=== PATIENT | male | born 1935 | race Caucasian/White ===

== ENCOUNTER → 2016-04-07 | Outpatient (CLI) | payer OTHER ==
[~2016-04-07] MED LIST: AMLO-114 PO; AMR2; ASPEC325 PO; LISI20TA PO; METO25TA56 PO; MULT-506 PO; SIMV20TA2 PO; janumet PO
[2016-04-07 16:49] LABS: BASO % 0.5 %; BASO ABS # 0.03 K/uL (0-0.2); COMPLETE YES; EOS % 2.9 %; HEMATOCRIT 44.2 % (42-52); IG% 0.2 %; LYMPH % 17.9 %; LYMPH ABS # 1.06 K/uL (1.2-3.4); MEAN CORPUSCULAR HEMOGLOBIN 28.7 pg (25-34); MEAN CORPUSCULAR HGB CONC 34.2 g/dl (32-36); MEAN PLATELET VOLUME 11.8 fL (7.4-10.4); MONO % 9.5 %; PLATELET COUNT 126 K/uL (130-400); RED BLOOD COUNT 5.26 M/uL (4.7-6.1); WHITE BLOOD COUNT 5.91 K/uL (4.8-10.8)
[2016-04-07 17:01] LABS: BLOOD UREA NITROGEN 22 mg/dl (7-18); BUN/CREATININE RATIO 17.9 (10-20); CALCIUM 8.8 mg/dl (8.5-10.1); CARBON DIOXIDE 28 mmol/L (21-32); CHLORIDE 106 mmol/L (98-107); GLUCOSE 194 mg/dl (70-99); SODIUM 141 mmol/L (136-145)
[2016-04-07 17:04] LABS: CHOLESTEROL 193 mg/dl (0-200); CHOLESTEROL/HDL RATIO 4.5; HDL CHOLESTEROL 43 mg/dl; LDL CHOLESTEROL CALCULATED 116 mg/dl; TRIGLYCERIDES 168 mg/dl (0-150); VERY LOW DENSITY LIPOPROT CALC 34 mg/dl
[2016-04-08 05:56] LABS: ESTIMATED AVERAGE GLUCOSE 217 mg/dl; HA1C FLAG Normal (Normal)
== END | disposition home or self-care (01) ==
LOC: C.LABBC 11:41
PROVIDERS: ATTEND Internal Medicine Geriatric Medicine
DX: I10 Essential (primary) hypertension (principal); M19.90 Unspecified osteoarthritis, unspecified site; K21.9 Gastro-esophageal reflux disease without esophagitis; E78.5 Hyperlipidemia, unspecified; E11.29 Type 2 diabetes mellitus with other diabetic kidney complication; N18.3 Chronic kidney disease, stage 3 (moderate); E11.65 Type 2 diabetes mellitus with hyperglycemia

== ENCOUNTER → 2016-07-03 | Outpatient (CLI) | payer OTHER ==
[2016-07-03 15:04] LABS: HEMATOCRIT 45.3 % (42-52); MEAN CELL VOLUME 85.6 fL (80-100); MEAN CORPUSCULAR HEMOGLOBIN 29.7 pg (25-34); MEAN CORPUSCULAR HGB CONC 34.7 g/dl (32-36); PLATELET COUNT 121 K/uL (130-400); RED BLOOD COUNT 5.29 M/uL (4.7-6.1); WHITE BLOOD COUNT 5.94 K/uL (4.8-10.8)
[2016-07-03 15:40] LABS: BLOOD UREA NITROGEN 23 mg/dl (7-18); BUN/CREATININE RATIO 17.5 (10-20); CARBON DIOXIDE 32 mmol/L (21-32); CHLORIDE 100 mmol/L (98-107); GLUCOSE 268 mg/dl (70-99); POTASSIUM 3.3 mmol/L (3.5-5.1); SODIUM 138 mmol/L (136-145)
[2016-07-04 06:04] LABS: ESTIMATED AVERAGE GLUCOSE 223 mg/dl; HA1C FLAG Normal (Normal)
== END | disposition home or self-care (01) ==
LOC: C.LABBC 10:37
PROVIDERS: ATTEND Internal Medicine Geriatric Medicine
DX: E11.9 Type 2 diabetes mellitus without complications (principal); I25.10 Atherosclerotic heart disease of native coronary artery without angina pectoris

== ENCOUNTER → 2016-09-04 | Outpatient (CLI) | payer OTHER ==
[2016-09-04 14:05] LABS: BLOOD UREA NITROGEN 24 mg/dl (7-18); BUN/CREATININE RATIO 18.2 (10-20); CALCIUM 8.9 mg/dl (8.5-10.1); CARBON DIOXIDE 31 mmol/L (21-32); CHLORIDE 101 mmol/L (98-107); GLUCOSE 323 mg/dl (70-99); POTASSIUM 3.6 mmol/L (3.5-5.1); SODIUM 140 mmol/L (136-145)
[2016-09-04 14:21] LABS: BETA-HYDROXYBUTYRATE 1.02 mg/dL (0.2-2.81)
== END | disposition home or self-care (01) ==
LOC: C.LABBC 09:39
PROVIDERS: ATTEND Internal Medicine Geriatric Medicine
DX: E11.29 Type 2 diabetes mellitus with other diabetic kidney complication (principal)

== ENCOUNTER → 2016-10-02 | Outpatient (CLI) | payer OTHER ==
[2016-10-02 11:36] LABS: ESTIMATED AVERAGE GLUCOSE 214 mg/dl; HA1C FLAG Normal (Normal)
--- NOTE | 2016-10-10 08:39 | CODING QUERY MEDICAL NECESSITY ---
CQSUPPORTING DIAGNOSIS NEEDED A supporting diagnosis is required for the test/procedure performed on this patient in order for us to be reimbursed by the patient's insurance. Please provide a supporting diagnosis for the following test/procedure listed below next to the test name along with your signature. *If there is no additional diagnosis for this patient that would support the following test/procedure please document that below next to the test/procedure. Test(s)/Procedure(s) that require a supporting diagnosis: PRIYA 10/02/16 GLYCATED HEMOGLOBIN TEST Provider Signature: Date: Thank you Harriett Little Health Information Management Once completed, please kindly fax back to [phone] For questions please call [phone]
== END | disposition home or self-care (01) ==
LOC: C.LABBC 09:22
PROVIDERS: ATTEND Nurse Practitioner Family
DX: E78.5 Hyperlipidemia, unspecified (principal); E11.65 Type 2 diabetes mellitus with hyperglycemia

== ENCOUNTER → 2016-12-02 | Outpatient (CLI) | payer OTHER ==
[2016-12-02 13:28] LABS: BLOOD UREA NITROGEN 26 mg/dl (7-18); CALCIUM 9.8 mg/dl (8.5-10.1); CARBON DIOXIDE 32 mmol/L (21-32); CHLORIDE 106 mmol/L (98-107); GLUCOSE 105 mg/dl (70-99); POTASSIUM 3.6 mmol/L (3.5-5.1); SODIUM 142 mmol/L (136-145)
[2016-12-02 13:32] LABS: CHOLESTEROL 108 mg/dl (0-200); CHOLESTEROL/HDL RATIO 2.5; HDL CHOLESTEROL 44 mg/dl; LDL CHOLESTEROL CALCULATED 42 mg/dl; TRIGLYCERIDES 110 mg/dl (0-150); VERY LOW DENSITY LIPOPROT CALC 22 mg/dl
== END | disposition home or self-care (01) ==
LOC: C.LABBC 07:28
PROVIDERS: ATTEND Nurse Practitioner Family
DX: E78.5 Hyperlipidemia, unspecified (principal)

== ENCOUNTER → 2017-01-02 | Outpatient (CLI) | payer OTHER | END | disposition home or self-care (01) | LOC: C.LABBC 10:32 | PROVIDERS: ATTEND Nurse Practitioner Family | DX: E11.65 Type 2 diabetes mellitus with hyperglycemia (principal) ==

== ENCOUNTER → 2017-05-01 | Outpatient (CLI) | payer OTHER ==
[2017-05-01 13:25] LABS: HEMOGLOBIN 15.2 g/dL (14.0-18.0); MEAN CELL VOLUME 86.6 fL (80-100); MEAN CORPUSCULAR HEMOGLOBIN 29.9 pg (25-34); MEAN CORPUSCULAR HGB CONC 34.5 g/dl (32-36); RED CELL DISTRIBUTION WIDTH SD 41.2 fL (36.4-46.3); WHITE BLOOD COUNT 6.41 K/uL (4.8-10.8)
[2017-05-01 13:49] LABS: BLOOD UREA NITROGEN 21 mg/dl (7-18); CARBON DIOXIDE 32 mmol/L (21-32); CREATININE 1.28 mg/dl (0.60-1.40); GLUCOSE 203 mg/dl (70-99); POTASSIUM 3.4 mmol/L (3.5-5.1); SODIUM 137 mmol/L (136-145)
[2017-05-01 13:55] LABS: BASO % 0.3 %; BASO ABS # 0.02 K/uL (0-0.2); EOS % 2.7 %; EOS ABS # 0.17 K/uL (0-0.5); IG# 0.02 K/uL (0.00-0.02); LYMPH % 19.8 %; LYMPH ABS # 1.27 K/uL (1.2-3.4); MONO % 8.4 %; MONO ABS # 0.54 K/uL (0.11-0.59); NEUT % 68.5 %; NEUT ABS # 4.39 K/uL (1.4-6.5); PLATELET COUNT 106 K/uL (130-400)
== END | disposition home or self-care (01) ==
LOC: C.LAB1850 11:45
PROVIDERS: ATTEND Internal Medicine Endocrinology, Diabetes & Metabolism
DX: E11.9 Type 2 diabetes mellitus without complications (principal); E03.9 Hypothyroidism, unspecified; E55.9 Vitamin D deficiency, unspecified; I10 Essential (primary) hypertension; N18.3 Chronic kidney disease, stage 3 (moderate)

== ENCOUNTER 2022-03-25 19:33 | Inpatient (IN) ==
[2022-03-25 21:09] LABS: Hematocrit (blood only) 43.3 % (40.1-51.0); Hemoglobin 14.6 g/dl (14.0-18.0); White Blood Count 5.05 K/ul (4.8-10.8)
[2022-03-25 21:10] LABS: Mean Corpuscular Hemoglobin 29.8 pg (25.0-34.0); Mean Corpuscular Hgb Conc 33.7 g/dL (32.0-36.0); Mean Corpuscular Volume 88.4 fL (80.0-100.0); RDW Coefficient of Variation 13.2 % (11.5-14.5); RDW Standard Deviation 43.1 fL (36.4-46.3)
--- NOTE | 2022-03-25 21:12 | XRay Report ---
XR chest 1V portable CLINICAL HISTORY: cough, covid + TECHNIQUE: Single frontal radiograph of the chest was obtained. Comparison: Comparison is made to chest radiograph 10/30/2019 FINDINGS: Median sternotomy wires are unchanged. The cardiomediastinal silhouette is normal. Lungs are underinf lated but clear. No evidence of pleural effusion or pneumothorax. IMPRESSION: No acute chest disease. ACT 112: Negative or not required by law. Electronically signed by: Figueroa Swenson M.D. 03/25/2022 9:11 PM
[2022-03-25] MEDS: SODIUM CHLORIDE 0.9% 1000ML 1,000 ML IV SCH (21:15)
--- NOTE | 2022-03-25 21:23 | Emergency Department Note ---
History of Present Illness General Chief complaint: Weakness Stated complaint: COVID +, LIGHT HEADED, LABORED BREATHING, FALLING Time Seen by Provider: 03/25/22 20:18 Source: patient Mode of arrival: ambulatory Limitations: no limitations History of Present Illness Provider complaint: sob, fatigue, lightheaded This is an 86-year-old male presents emergency department with family at bedside due to concern for lightheadedness, shortness of breath, and positive home COVID test. Patient states he first began not feeling well evening with increased fatigue and lightheadedness. He states he had decreased appetite over the course of the last 3 days, although no overt nausea or vomiting. He states he has been more tired, and began to notice a slight cough and increased dyspnea with exertion. He denies any overt headaches, chest pain, abdominal pain. Family states they came to check on him today due to concern after a phone conversation and brought over the COVID test. The COVID test was positive at home. They also state patient also had 2 subsequent falls today. Patient states the first time he felt weak in the bathroom and fell forward but did not strike anything on the way down, he denies head trauma or LOC. Daughter states the second time he became weak and off balance while trying to put his coat on in preparation for coming here and the daughter caught him and sat him down. Patient does live with his at home although daughter states has a difficult time caring for him. Home Medications Medication Instructions Recorded Confirmed Type aspirin 325 mg tablet 325 mg PO DAILY 10/24/18 03/25/22 History lancets (Microlet Lancet) #50 ea 10/28/18 02/16/22 History Contour Next Test Strips (blood #300 ea 12/08/20 02/16/22 Rx sugar diagnostic) multivitamin (Multiple Vitamins 1 tab PO DAILY 05/24/21 03/25/22 History tablet) nitroglycerin 0.4 mg sublingual 0.4 mg sublingual Q5M PRN dyspnea 05/24/21 03/25/22 Rx tablet (Nitrostat) #25 tabs BD Ultra-Fine Danielle Pen Needle 32 #400 ea 09/26/21 02/16/22 Rx gauge x 5/32" (pen needle, diabetic) amlodipine 10 mg tablet 10 mg PO QAM #90 tabs 11/10/21 03/25/22 Rx lisinopril 20 2 tab PO QAM #180 tabs 11/10/21 03/25/22 Rx mg-hydrochlorothiazide 12.5 mg tablet potassium chloride 10 mEq 10 meq PO QAM #90 caps 11/14/21 03/25/22 Rx capsule,extended release insulin glargine 100 unit/mL (3 35 unit (0.35 mL) subcut QPM #45 mL 11/28/21 03/25/22 Rx mL) subcutaneous pen (Basaglar KwikPen U-100 Insulin) atorvastatin 40 mg tablet 40 mg PO QAM #90 tabs 12/19/21 03/25/22 Rx isosorbide mononitrate 30 mg 30 mg PO DAILY #90 tabs 03/21/22 03/25/22 Rx tablet,extended release 24 hr insulin aspart U-100 100 unit/mL 52 unit subcut DAILY 03/25/22 03/25/22 History (3 mL) subcutaneous pen (Novolog Flexpen U-100 Insulin aspart) Allergies Allergy/AdvReac Type Severity Reaction Status Date / Time No Known Drug Allergies Allergy NKDA Verified 03/25/22 23:40 Past Med/Surg History Medical History Anemia Basal cell carcinoma HX Bradycardia DENIES Calcaneal spur Cataracts, bilateral Chronic kidney disease AGE APPROPRIATE KIDNEY DISEASE PER DAUGHTER Chronic sinusitis Coronary artery disease . Followed by cardiology. Diabetes Diabetic nephropathy DENIES Dysphagia DENIES History of COVID-19 [place] ([place] of hearing) Hyperlipidemia Hypertension Seborrheic keratosis Snores REFUSED SLEEP STUDY Thrombocytopenia Thyroglossal duct cyst Surgical History H/O colonoscopy No further screening recommended, 03/2014 History of carpal tunnel release History of left cataract surgery History of thyroid surgery CYST REMOVED, NON CANCEROUS 50+ YR AGO Hx of CABG OPEN HEART SURGERY, BLOCKAGES 2006 AT [place] Hx of total knee arthroplasty Left, 2002 Family History Unknown No problems noted. 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 Required: No Beliefs That Will Affect Care: None marital status: Current Living Situation: Spouse current occupational status: retired 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 How many Children do You have: 3 Feels Safe at Home: Yes Childhood Exposure to Second-Hand Smoke: No caffeine: Yes Dental Care, Regularly: No Physical Activity Frequency: 1-2 Times per Week Seatbelt Use: always Sunscreen Use: No Assistive Devices: Denture - Upper and Denture - Lower Review of Systems A total of 10 systems reviewed and were otherwise negative All systems reviewed & are unremarkable except as noted in HPI & below Physical Exam Vital Signs Vital Signs - 24 hr 03/25/22 19:40 03/25/22 20:48 03/25/22 20:57 Temperature 37.3 C Temperature Source Temporal Artery Scan Pulse Rate 100 H 87 Pulse Rate from SpO2 Sensor 87 Respiratory Rate 18 25 H Respiratory Effort / Characteristics Non-Labored Spontaneous Respiratory Depth Normal Blood Pressure 126/82 Blood Pressure Mean 96 Blood Pressure Position Sitting Pulse Oximetry 93 93 92 Oxygen Delivery Method Room Air Room Air Room Air Oxygen Flow Rate 0 Sepsis Recent Fever Within 48 Hours No Sepsis New/Unexplained Change in Mental Status No Sepsis Action Taken by Nursing No Action Required 03/25/22 21:00 03/25/22 21:00 03/25/22 21:30 Temperature Temperature Source Pulse Rate 88 Pulse Rate from SpO2 Sensor 88 Respiratory Rate 35 H Respiratory Effort / Characteristics Respiratory Depth Blood Pressure 142/74 H 134/73 Blood Pressure Mean 96 93 Blood Pressure Position Pulse Oximetry 91 Oxygen Delivery Method Room Air Oxygen Flow Rate Sepsis Recent Fever Within 48 Hours Sepsis New/Unexplained Change in Mental Status Sepsis Action Taken by Nursing 03/25/22 21:30 Temperature Temperature Source Pulse Rate 85 Pulse Rate from SpO2 Sensor 85 Respiratory Rate 36 H Respiratory Effort / Characteristics Respiratory Depth Blood Pressure Blood Pressure Mean Blood Pressure Position Pulse Oximetry 94 Oxygen Delivery Method Room Air Oxygen Flow Rate Sepsis Recent Fever Within 48 Hours Sepsis New/Unexplained Change in Mental Status Sepsis Action Taken by Nursing GENERAL: alert, unwell appearing, well nourished, no distress, non-toxic EYE EXAM: normal conjunctiva, PERRL and EOM's grossly intact OROPHARYNX: no exudate, no erythema, lips, buccal mucosa, and tongue normal and mucous membranes are moist NECK: supple, no nuchal rigidity, no adenopathy, non-tender LUNGS: Clear to auscultation. Normal chest wall mechanics, no w/r/r HEART: no murmurs, S1 normal and S2 normal ABDOMEN: abdomen soft, non-tender, normo-active bowel sounds, no masses, no rebound or guarding. BACK: Back is symmetrical on inspection and there is no deformity, no midline tenderness, no CVA tenderness. SKIN: no rashes and no bruising UPPER EXTREMITIES: upper extremities are grossly normal. FROM, nml pulses b/l. LOWER EXTREMITIES: No pitting edema. FROM, nml pulses b/l. NEURO EXAM: Normal sensorium, cranial nerves II-XII grossly intact, normal speech, no gross weakness of arms, no gross weakness of legs. Gross sensation intact. Course Administered Medications Sodium Chloride (Nss 1000ml) 1,000 mls @ 125 mls/hr IV .Q8H ALEXIA Stop: 04/24/22 20:44 Last Admin: 03/25/22 21:15 Dose: 125 mls/hr Documented By: [id number] Discontinued Medications Albuterol (Albut/Ipratrop 3mg/0.5mg Neb 3 Ml Vial) 3 ml NEB NOW STA; Protocol Stop: 03/25/22 22:02 Last Admin: 03/25/22 22:23 Dose: 3 ml Documented By: [id number] Dexamethasone Sodium Phosphate (DexamethasonePf 10 Mg/Ml Vial) 6 mg IV NOW ONE Stop: 03/25/22 22:54 Last Admin: 03/25/22 23:13 Dose: 6 mg Documented By: SW Potassium Chloride (Potassium Chloride Crtab 20 Meq Tabcr) 40 meq PO NOW STA Stop: 03/25/22 21:44 Last Admin: 03/25/22 22:22 Dose: 40 meq Documented By: [id number] Medical Decision Making Differential Diagnosis Differential Diagnosis includes but is not limited to dehydration, stroke, anem ia, hypoglycemia, hyponatremia, hypernatremia, urinary tract infection, pneumonia, bronchitis, sepsis, gastroenteritis, additional abdominal pathology, metabolic abnormalities and infections. Medical Records Attestation: I reviewed the patient's medical records. Home Medications Current Medication List: was personally reviewed by me Laboratory Data Attestation: I reviewed the patient's lab results. Result diagrams: 03/25/22 20:45 03/25/22 20:45 Lab Results 03/25/22 03/25/22 03/25/22 Range/Units 20:45 20:45 20:45 WBC 5.05 (4.8-10.8) K/ul RBC 4.90 (4.63-6.08) M/uL Hgb 14.6 (14.0-18.0) g/dl Hct 43.3 (40.1-51.0) % MCV 88.4 (80.0-100.0) fL MCH 29.8 (25.0-34.0) pg MCHC 33.7 (32.0-36.0) g/dL RDW Std Deviation 43.1 (36.4-46.3) fL RDW Coeff of Kirsten 13.2 (11.5-14.5) % Plt Count 49 L (130-400) K/uL MPV 11.6 (9.4-12.4) fL Immature Gran % (Auto) 0.6 % Neut % (Auto) 77.6 % Lymph % (Auto) 7.3 % [place] % (Auto) 14.3 % Eos % (Auto) 0.0 % Baso % (Auto) 0.2 % Neut # (Auto) 3.92 (1.4-6.5) K/uL Lymph # (Auto) 0.37 L (1.2-3.4) K/uL [place] # (Auto) 0.72 (0.24-0.82) K/uL Eos # (Auto) 0.00 (0-0.50) K/uL Baso # (Auto) 0.01 (0-0.2) K/uL Immature Gran # (Auto) 0.03 H (0.00-0.02) K/uL Platelet Estimate Decreased L (Normal) Sodium 137 (136-145) mmol/L Potassium 3.4 L (3.5-5.1) mmol/L Chloride 100 (98-107) mmol/L Carbon Dioxide 29 (21-32) mmol/L Anion Gap 8 (3-11) BUN 27 H (6-23) mg/dl Creatinine 1.47 H (0.6-1.4) mg/dl Est Cr Clr Drug Dosing 37.4 ml/min Est GFR ( Amer) 50.1 ml/min Est GFR (Non-Af Amer) 43.2 ml/min BUN/Creatinine Ratio 18.4 (10-20) Glucose 165 H (70-99(Fasting)) mg/dl Calcium 9.6 (8.5-10.1) mg/dl Magnesium 1.8 (1.7-2.4) mg/dl Total Bilirubin 4.4 H (0.2-1.0) mg/dl AST 17 (13-39) U/L ALT 15 (7-52) U/L Alkaline Phosphatase 51 (34-104) U/L Troponin I High Sens 29.4 H (0-20) pg/ml Total Protein 6.8 (6.0-8.3) gm/dl Albumin 4.3 (3.4-5.0) gm/dl Globulin 2.5 (2.5-4.0) gm/dl Albumin/Globulin Ratio 1.7 (0.9-2) Lipase 32 (11-82) U/L Procalcitonin 0.07 (0-0.5) ng/ml SARS-CoV-2 (PCR) (Negative) Influenza Type A (PCR) (Neg) Influenza Type B (PCR) (Neg) RSV (RT-PCR) (Neg) 03/25/22 Range/Units 21:12 WBC (4.8-10.8) K/ul RBC (4.63-6.08) M/uL Hgb (14.0-18.0) g/dl Hct (40.1-51.0) % MCV (80.0-100.0) fL MCH (25.0-34.0) pg MCHC (32.0-36.0) g/dL RDW Std Deviation (36.4-46.3) fL RDW Coeff of Kirsten (11.5-14.5) % Plt Count (130-400) K/uL MPV (9.4-12.4) fL Immature Gran % (Auto) % Neut % (Auto) % Lymph % (Auto) % [place] % (Auto) % Eos % (Auto) % Baso % (Auto) % Neut # (Auto) (1.4-6.5) K/uL Lymph # (Auto) (1.2-3.4) K/uL [place] # (Auto) (0.24-0.82) K/uL Eos # (Auto) (0-0.50) K/uL Baso # (Auto) (0-0.2) K/uL Immature Gran # (Auto) (0.00-0.02) K/uL Platelet Estimate (Normal) Sodium (136-145) mmol/L Potassium (3.5-5.1) mmol/L Chloride (98-107) mmol/L Carbon Dioxide (21-32) mmol/L Anion Gap (3-11) BUN (6-23) mg/dl Creatinine (0.6-1.4) mg/dl Est Cr Clr Drug Dosing ml/min Est GFR ( Amer) ml/min Est GFR (Non-Af Amer) ml/min BUN/Creatinine Ratio (10-20) Glucose (70-99(Fasting)) mg/dl Calcium (8.5-10.1) mg/dl Magnesium (1.7-2.4) mg/dl Total Bilirubin (0.2-1.0) mg/dl AST (13-39) U/L ALT (7-52) U/L Alkaline Phosphatase (34-104) U/L Troponin I High Sens (0-20) pg/ml Total Protein (6.0-8.3) gm/dl Albumin (3.4-5.0) gm/dl Globulin (2.5-4.0) gm/dl Albumin/Globulin Ratio (0.9-2) Lipase (11-82) U/L Procalcitonin (0-0.5) ng/ml SARS-CoV-2 (PCR) POSITIVE A* (Negative) Influenza Type A (PCR) Negative (Neg) Influenza Type B (PCR) Negative (Neg) RSV (RT-PCR) Negative (Neg) Imaging Data Radiologist's Impression: Chest X-Ray 03/25/22 20:32 XR chest 1V portable CLINICAL HISTORY: cough, covid + TECHNIQUE: Single frontal radiograph of the chest was obtained. Comparison: Comparison is made to chest radiograph 10/30/2019 FINDINGS: Median sternotomy wires are unchanged. The cardiomediastinal silhouette is normal. Lungs are underinflated but clear. No evidence of pleural effusion or pneumothorax. IMPRESSION: No acute chest disease. ACT 112: Negative or not required by law. Electronically signed by: Figueroa Swenson M.D. 03/25/2022 9:11 PM ECG Data Attestation: I personally reviewed and interpreted this ECG as follows: Indication: + SOB/dyspnea and + weakness Rate (beats per minute): 86 Rhythm: + normal sinus ECG Intervals/blocks: + Normal QRS and + Normal QT ECG [place]: + Left axis deviation ECG ST segments: + Nonspecific ST abnormalities MDM Narrative An order was placed for continuous cardiac monitoring. The monitor shows a rate of _80_ with _normal sinus_ rhythm. This is an 86-year-old male brought by daughter due to concern for weakness and positive home COVID test. Patient with 2 falls earlier this evening. Patient denies any trauma or injury from these. Patient with worsening symptoms over the last 48 hours including weakness, fatigue, fevers, increased cough and shortness of breath, decreased oral intake. Labs drawn and sent, patient started on IV fluid rehydration, chest x-ray performed. Patient also given DuoNeb additionally as he is a prior smoker and did complain of feeling shortness of breath particular with exertion. Patient's EKG reassuring. Patient was positive for COVID here, however chest x-ray did not show any significant changes. Patient was not hypoxic and had no increased work of breathing. Patient with mild hypokalemia. Patient also noted to have thrombocytopenia which is likely reactive from the COVID infection. Patient also found to have hyperbilirubinemia although on review of EMR has had this previously. Troponin mildly elevated although I do not suspect primary cardiac pathology or ACS. Due to concern for acute infection and symptoms, concern for weakness given falls today, as well as mild lab abnormalities noted, we discussed additional inpatient monitoring and evaluation. Patient and daughter verbalized understanding and were in agreement with the plan. I do not suspect additional occult traumatic injury secondary to the falls which sound low risk based on the patient and daughter's description. There is no evidence of trauma on physical exam. Patient otherwise hemodynamically stable on monitor in the emergency room. Impression & Plan Acute dyspnea, Hypokalemia, Generalized weakness, COVID-19, Hyperbilirubinemia, Elevated troponin Discharge Plan Visit Data Chief Complaint: Weakness Stated Complaint: COVID +, LIGHT HEADED, LABORED BREATHING, FALLING ED Provider: Tammy Meyer Discharge Problem: Acute dyspnea, Hypokalemia, Generalized weakness, COVID-19, Hyperbilirubinemia, Elevated troponin Patient Disposition: Admitted As Inpatient Condition: Fair Discharge Instructions Interventions: ED Discharge Assessment Last Done: 03/26/22 00:16
[2022-03-25 21:25] LABS: Albumin Globulin Ratio 1.7 (0.9-2); Albumin Level 4.3 gm/dl (3.4-5.0); BUN Creatinine Ratio 18.4 (10-20); Bilirubin,Total 4.4 mg/dl (0.2-1.0); Calcium 9.6 mg/dl (8.5-10.1); Creatinine Clr Calc Pharmacy 37.4 ml/min; Est GFR (African American) 50.1 ml/min; Est GFR (Non-African American) 43.2 ml/min; Globulin 2.5 gm/dl (2.5-4.0); Magnesium 1.8 mg/dl (1.7-2.4); Potassium 3.4 mmol/L (3.5-5.1); Total Protein 6.8 gm/dl (6.0-8.3)
[2022-03-25 21:30] LABS: Troponin I High Sensitivity 29.4 pg/ml (0-20)
[2022-03-25] MEDS ORDERED: POTASSIUM CHLORIDE CRTAB 20 MEQ TABCR PO STA (21:43)
[2022-03-25] MEDS ORDERED: ALBUT/IPRATROP 3MG/0.5MG NEB 3 ML VIAL NEB STA (22:01)
[2022-03-25 22:26] LABS: Influenza A virus by PCR Negative (Neg); Influenza B virus by PCR Negative (Neg); RSV by PCR Negative (Neg)
[2022-03-25 22:30] LABS: SARS CoV2 RNA(COVID-19) Ceph POSITIVE (Negative)
[2022-03-25 22:44] LABS: Basophils # (auto) 0.01 K/uL (0-0.2); Basophils % (auto) 0.2 %; Immature Granulocytes # (auto) 0.03 K/uL (0.00-0.02); Immature Granulocytes % (auto) 0.6 %; Lymphocytes # (auto) 0.37 K/uL (1.2-3.4); Lymphocytes % (auto) 7.3 %; Mean Platelet Volume 11.6 fL (9.4-12.4); Monocytes # (auto) 0.72 K/uL (0.24-0.82); Monocytes % (auto) 14.3 %; Neutrophils # (auto) 3.92 K/uL (1.4-6.5); Neutrophils % (auto) 77.6 %; Platelet Count 49 K/uL (130-400); Platelet Estimate Decreased (Normal)
[2022-03-25] MEDS ORDERED: dexAMETHasone**PF** 10 MG/ML VIAL IV ONE (22:53)
--- NOTE | 2022-03-25 23:19 | History & Physical Report ---
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 daily Albuterol HFA 2 puffs 4 times daily, and every 2 hours as needed DuoNebs every 2 hours as needed Will attempt to hydrate patient to improve creatinine clearance to be able to get remdesivir in a.m. tomorrow if still with significant symptoms Elevated troponin/CAD/hypertension/history of CABG- Troponin 29.4 upon admission The patient will be admitted to telemetry for serial cardiac enzymes, serial EKG's, cardiac rhythm monitoring and a 2-D echocardiogram with Dopplers. Optimize potassium and magnesium continue aspirin 325 mg daily, amlodipine 10 mg daily, isosorbide mononitrate extended release 24-hour 30 mg daily and nitroglycerin sublingual as needed Acute kidney injury on CKD stage III/hypokalemia/hypomagnesemia- Hold lisinopril/HCTZ this evening Given Klor-Con 40 mEq p.o. by the ED Give magnesium sulfate 1 g IV now Recheck laboratories in a.m. Diabetes mellitus- Patient has had decreased oral intake over the past several days Decrease glargine from 35 to 20 units subcu q. evening Hold aspartate 55 units daily Placed on Accu-Cheks before meals and at bedtime with NovoLog coverage per scale If blood sugars increase while on steroids, resume full dosing of insulin Hyperlipidemia- Continue atorvastatin 40 mg daily History of Present Illness Chief Complaint: The patient presents to the emergency department due to family concerns regarding lightheadedness, dizziness, shortness of breath, worsening fatigue and a positive home COVID test prior to arrival. Primary Care Provider: Javier Anguiano DO The patient is an 86-year-old male with a past medical history including hyperbilirubinemia, status post CABG, hypertension, diabetes mellitus type 2, ITP, low back pain, hyperlipidemia, and CAD. He was noted by family to have the above symptoms. Work-up in the emergency department include the following abnormal laboratories: Magnesium 1.8, potassium 3.4, troponin 29.4, creatinine 1.47 and COVID-19 positive. Pulse ox on room air was noted to be 90-91% at baseline improving significantly after nebulizer treatment. Allergies Allergy/AdvReac Type Severity Reaction Status Date / Time No Known Drug Allergies Allergy NKDA Verified 03/25/22 23:40 Home Medications Medication Instructions Recorded Confirmed Type aspirin 325 mg tablet 325 mg PO DAILY 10/24/18 03/21/22 History lancets (Microlet Lancet) #50 ea 10/28/18 02/16/22 History Contour Next Test Strips (blood #300 ea 12/08/20 02/16/22 Rx sugar diagnostic) multivitamin (Multiple Vitamins 1 tab PO DAILY 05/24/21 03/21/22 History tablet) nitroglycerin 0.4 mg sublingual 0.4 mg sublingual Q5M PRN dyspnea 05/24/21 03/21/22 Rx tablet (Nitrostat) #25 tabs BD Ultra-Fine Danielle Pen Needle 32 #400 ea 09/26/21 02/16/22 Rx gauge x 5/32" (pen needle, diabetic) amlodipine 10 mg tablet 10 mg PO QAM #90 tabs 11/10/21 03/21/22 Rx lisinopril 20 2 tab PO QAM #180 tabs 11/10/21 03/21/22 Rx mg-hydrochlorothiazide 12.5 mg tablet potassium chloride 10 mEq 10 meq PO QAM #90 caps 11/14/21 03/21/22 Rx capsule,extended release insulin glargine 100 unit/mL (3 35 unit (0.35 mL) subcut QPM #45 mL 11/28/21 03/21/22 Rx mL) subcutaneous pen (Basaglar KwikPen U-100 Insulin) atorvastatin 40 mg tablet 40 mg PO QAM #90 tabs 12/19/21 03/21/22 Rx isosorbide mononitrate 30 mg 30 mg PO DAILY #90 tabs 03/21/22 03/21/22 Rx tablet,extended release 24 hr insulin aspart U-100 100 unit/mL 52 unit subcut DAILY 03/25/22 03/25/22 History (3 mL) subcutaneous pen (Novolog Flexpen U-100 Insulin aspart) Past Med/Surg History Medical History (Updated 03/26/22 @ 02:23 by Danish Lucas MD) Anemia Basal cell carcinoma HX Bradycardia DENIES CAD (coronary artery disease), [place]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 Followed by cardiology. Diabetes Diabetic nephropathy DENIES Dysphagia DENIES History of COVID-19 [place] O[place]ILLES (hard of hearing) Hyperlipidemia Hypertension Seborrheic keratosis Snores REFUSED SLEEP STUDY Thrombocytopenia Thyroglossal duct cyst Surgical History H/O colonoscopy No further screening recommended, 03/2014 History of carpal tunnel release History of left cataract surgery History of thyroid surgery CYST REMOVED, NON CANCEROUS 50+ YR AGO Hx of CABG OPEN HEART SURGERY, BLOCKAGES 2006 AT [place] Hx of total knee arthroplasty Left, 2002 Family History Unknown No problems noted. Father Prostate cancer Alcohol abuse Mother Hypertension Stroke Brother Atrial fibrillation Heart disease Grandmother Diabetes Stroke Uncle Diabetes Denies family history of Ovarian cancer Myocardial infarction Breast cancer Colorectal cancer Social History Smoking Status: Former smoker Second Hand Exposure: No; Do You Dip or Chew Tobacco: No; Tobacco Cessation Education Requested by Patient: No Hx Alcohol Use: No Hx Substance Use: No Preferred Language: Romansh Communication Ability: Effective Visual Impairment: Limited Hearing Ability: Hard of Hearing Ccna Required: No Beliefs That Will Affect Care: None marital status: Current Living Situation: [place] 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 How many Children do You have: 3 Feels Safe at Home: Yes Safety Concerns: Feels Safe At This Time Childhood Exposure to Second-Hand Smoke: No caffeine: Yes Dental Care, Regularly: No Physical Activity Frequency: 1-2 Times per Week Seatbelt Use: always Sunscreen Use: No Assistive Devices: Walker Review of Systems Review of Systems: The patient denies chest pain, palpitations, lower extremity swelling, sore throat, fevers, chills, sweats, nausea, vomiting, diarrhea , constipation, abdominal pain, pelvic pain, blood in urine or stool, dysuria, urinary frequency or urgency, headache, memory loss, loss of consciousness, rash, abnormal bruising or bleeding, focal weakness, numbness or tingling in arms or legs, generalized arthralgias or myalgias, back or neck pain, or night sweats. The review of systems is otherwise negative other than for that already noted above, and at least 10 systems have been reviewed. Physical Exam Physical Exam: The patient is awake, alert and oriented 3, well developed and well nourished, normocephalic and atraumatic, lying in bed and in no acute distress. HEENT--PERRL, EOMI, mucous membranes and oropharynx dry. Neck--supple. No JVD. No bruits. Thyroid normal, trachea midline, no adenopathy. Heart--normal S1 and S2. No murmurs, rubs or gallops. Lungs--few coarse breath sounds bilaterally with scattered wheezes. No respiratory distress, no accessory muscle use. Abdomen--normal bowel sounds and soft. Nontender. Nondistended, no hernias or masses, no organomegaly. Extremities--no cyanosis or clubbing. No edema. Dermatologic--normal skin turgor, normal color, no abnormal lymph nodes, no rash. Neurologic--cranial nerves II through XII grossly intact. Rheumatologic--normal range of motion. Psychiatric--normal affect. Results & Data Results & Data ([facility]) Vital Signs (Past 12 Hours) Vital Signs Temp Pulse Resp BP Pulse Ox O2 Del Method O2 Flow Rate 03/25/22 21:30 85 36 H 94 Room Air 03/25/22 21:30 134/73 03/25/22 21:00 88 35 H 91 Room Air 03/25/22 21:00 142/74 H 03/25/22 20:57 87 25 H 92 Room Air 03/25/22 20:48 93 Room Air 0 03/25/22 19:40 37.3 C 100 H 18 126/82 93 Room Air Laboratory Results Laboratory Results WBC 5.05 K/ul (4.8-10.8) 03/25/22 20:45 RBC 4.90 M/uL (4.63-6.08) 03/25/22 20:45 Hgb 14.6 g/dl (14.0-18.0) 03/25/22 20:45 Hct 43.3 % (40.1-51.0) 03/25/22 20:45 MCV 88.4 fL (80.0-100.0) 03/25/22 20:45 MCH 29.8 pg (25.0-34.0) 03/25/22 20:45 MCHC 33.7 g/dL (32.0-36.0) 03/25/22 20:45 RDW Std Deviation 43.1 fL (36.4-46.3) 03/25/22 20:45 RDW Coeff of Kirsten 13.2 % (11.5-14.5) 03/25/22 20:45 Plt Count 49 K/uL (130-400) L 03/25/22 20:45 MPV 11.6 fL (9.4-12.4) 03/25/22 20:45 Immature Gran % (Auto) 0.6 % 03/25/22 20:45 Neut % (Auto) 77.6 % 03/25/22 20:45 Lymph % (Auto) 7.3 % 03/25/22 20:45 [place] % (Auto) 14.3 % 03/25/22 20:45 Eos % (Auto) 0.0 % 03/25/22 20:45 Baso % (Auto) 0.2 % 03/25/22 20:45 Neut # (Auto) 3.92 K/uL (1.4-6.5) 03/25/22 20:45 Lymph # (Auto) 0.37 K/uL (1.2-3.4) L 03/25/22 20:45 [place] # (Auto) 0.72 K/uL (0.24-0.82) 03/25/22 20:45 Eos # (Auto) 0.00 K/uL (0-0.50) 03/25/22 20:45 Baso # (Auto) 0.01 K/uL (0-0.2) 03/25/22 20:45 Immature Gran # (Auto) 0.03 K/uL (0.00-0.02) H 03/25/22 20:45 Platelet Estimate Decreased (Normal) L 03/25/22 20:45 Sodium 137 mmol/L (136-145) 03/25/22 20:45 Potassium 3.4 mmol/L (3.5-5.1) L 03/25/22 20:45 Chloride 100 mmol/L (98-107) 03/25/22 20:45 Carbon Dioxide 29 mmol/L (21-32) 03/25/22 20:45 Anion Gap 8 (3-11) 03/25/22 20:45 BUN 27 mg/dl (6-23) H 03/25/22 20:45 Creatinine 1.47 mg/dl (0.6-1.4) H 03/25/22 20:45 Est Cr Clr Drug Dosing 37.4 ml/min 03/25/22 20:45 Est GFR ( Amer) 50.1 ml/min 03/25/22 20:45 Est GFR (Non-Af Amer) 43.2 ml/min 03/25/22 20:45 BUN/Creatinine Ratio 18.4 (10-20) 03/25/22 20:45 Glucose 165 mg/dl (70-99(Fasting)) H 03/25/22 20:45 Calcium 9.6 mg/dl (8.5-10.1) 03/25/22 20:45 Magnesium 1.8 mg/dl (1.7-2.4) 03/25/22 20:45 Total Bilirubin 4.4 mg/dl (0.2-1.0) H 03/25/22 20:45 AST 17 U/L (13-39) 03/25/22 20:45 ALT 15 U/L (7-52) 03/25/22 20:45 Alkaline Phosphatase 51 U/L (34-104) 03/25/22 20:45 Troponin I High Sens 29.4 pg/ml (0-20) H 03/25/22 20:45 Total Protein 6.8 gm/dl (6.0-8.3) 03/25/22 20:45 Albumin 4.3 gm/dl (3.4-5.0) 03/25/22 20:45 Globulin 2.5 gm/dl (2.5-4.0) 03/25/22 20:45 Albumin/Globulin Ratio 1.7 (0.9-2) 03/25/22 20:45 Lipase 32 U/L (11-82) 03/25/22 20:45 Procalcitonin 0.07 ng/ml (0-0.5) 03/25/22 20:45 SARS-CoV-2 (PCR) POSITIVE (Negative) A* 03/25/22 21:12 Influenza Type A (PCR) Negative (Neg) 03/25/22 21:12 Influenza Type B (PCR) Negative (Neg) 03/25/22 21:12 RSV (RT-PCR) Negative (Neg) 03/25/22 21:12 Impressions Chest X-Ray 03/25/22 20:32 XR chest 1V portable CLINICAL HISTORY: cough, covid + TECHNIQUE: Single frontal radiograph of the chest was obtained. Comparison: Comparison is made to chest radiograph 10/30/2019 FINDINGS: Median sternotomy wires are unchanged. The cardiomediastinal silhouette is normal. Lungs are underinflated but clear. No evidence of pleural effusion or pneumothorax. IMPRESSION: No acute chest disease. ACT 112: Negative or not required by law. Electronically signed by: Figueroa Swenson M.D. 03/25/2022 9:11 PM Code Status & VTE Plan Code Status Full code VTE Prophylaxis Plan VTE Prophylaxis will be ordered: Yes
[2022-03-25] MEDS ORDERED: MAGNESIUM SULFATE / D5W 1 GM/100 ML BAG IV ONE (23:21)
[2022-03-25] MEDS ORDERED: SODIUM CHLORIDE 0.9% 1000ML 1,000 ML IV SCH (23:30)
[2022-03-26] MEDS ORDERED: NITROGLYCERIN SL 0.4 MG/TAB TAB SL PRN (00:47)
[2022-03-26] MEDS ORDERED: GLUCOSE 40% GEL 15 GM TUBE PO PRN (00:47)
[2022-03-26] MEDS ORDERED: ACETAMINOPHEN 325 MG TAB PO PRN (00:47)
[2022-03-26] MEDS ORDERED: GLUCAGON FOR INJ 1 MG VIAL SQ PRN (00:47)
[2022-03-26] MEDS ORDERED: CARBOHYDRATES FOR HYPOGLYCEMIA PO PRN (00:47)
[2022-03-26] MEDS ORDERED: ONDANSETRON INJ 2 MG/ML 2 ML VIAL IV PRN (00:47)
[2022-03-26] MEDS ORDERED: DEXTROSE 50% 50 ML SYRINGE IV PRN (00:47)
[2022-03-26] MEDS ORDERED: GLUCOSE 10 TAB/TUBE PO PRN (00:47)
[2022-03-26] MEDS ORDERED: ALBUT/IPRATROP 3MG/0.5MG NEB 3 ML VIAL NEB PRN (00:47)
--- NOTE | 2022-03-26 02:28 | Billing Data ---
Date of Service March 26, 2022 Coding Level of Care Code 32682 Initial Inpt Care Lvl 3
[2022-03-26 02:32] LABS: Hemoglobin 13.6 g/dl (14.0-18.0); Mean Corpuscular Volume 88.1 fL (80.0-100.0); Mean Platelet Volume 11.2 fL (9.4-12.4); Platelet Count 47 K/uL (130-400); RDW Coefficient of Variation 13.2 % (11.5-14.5); Red Blood Count 4.54 M/uL (4.63-6.08); White Blood Count 4.32 K/ul (4.8-10.8)
[2022-03-26 02:48] LABS: Immature Granulocytes # (auto) 0.03 K/uL (0.00-0.02); Immature Granulocytes % (auto) 0.7 %; Lymphocytes # (auto) 0.32 K/uL (1.2-3.4); Lymphocytes % (auto) 7.4 %; Monocytes # (auto) 0.22 K/uL (0.24-0.82); Monocytes % (auto) 5.1 %; Neutrophils # (auto) 3.75 K/uL (1.4-6.5); Neutrophils % (auto) 86.8 %
[2022-03-26 02:49] LABS: Albumin Level 3.8 gm/dl (3.4-5.0); BUN Creatinine Ratio 20.5 (10-20); Calcium 8.7 mg/dl (8.5-10.1); Creatinine Clr Calc Pharmacy 48.1 ml/min; Est GFR (African American) 59.7 ml/min; Est GFR (Non-African American) 51.5 ml/min; Magnesium 1.8 mg/dl (1.7-2.4); Phosphorus 2.3 mg/dl (2.5-4.9); Potassium 3.8 mmol/L (3.5-5.1)
[2022-03-26] MEDS ORDERED: HEPARIN SOD 5,000 UNIT/0.5 ML VIAL SQ SCH (06:00)
[2022-03-26] MEDS ORDERED: ALBUTEROL HFA 8 GM INHALER INH SCH (07:00)
[2022-03-26] MEDS: INSULIN ASPART PER UNIT SC SCH ×4 (08:30→21:13)
[2022-03-26] MEDS: POTASSIUM CHLORIDE 10 MEQ TABCR PO SCH (08:38)
[2022-03-26] MEDS: MULTIVITAMIN TAB PO SCH (08:38)
[2022-03-26] MEDS: ATORVASTATIN 40 MG TAB PO SCH (08:38)
[2022-03-26] MEDS: ISOSORBIDE MONO EXTENDED REL 30 MG TABCR PO SCH (08:38)
[2022-03-26] MEDS: ASPIRIN 325 MG ECTAB PO SCH (08:38)
[2022-03-26] MEDS: dexAMETHasone 6 MG in SYRINGE 0 ML IV SCH (08:39)
[2022-03-26] MEDS: CHOLECALCIFEROL 5,000 UNITS 125 MCG TAB PO SCH (08:39)
[2022-03-26] MEDS: amLODIPine BESYLATE 5 MG TAB PO SCH (08:39)
[2022-03-26] MEDS ORDERED: ALBUTEROL HFA 8 GM INHALER INH PRN (10:46)
[2022-03-26] MEDS: SODIUM CHLORIDE 0.9% 1000ML 1,000 ML IV SCH ×2 (13:36→15:29)
--- NOTE | 2022-03-26 14:36 | Electrocardiogram Report ---
Test Reason : Blood Pressure : / mmHG Vent. Rate : 086 BPM Atrial Rate : 086 BPM P-R Int : 160 ms QRS Dur : 118 ms QT Int : 380 ms P-R-T Axes : 000 -42 062 degrees QTc Int : 454 ms Poor data quality, interpretation may be adversely affected Normal sinus rhythm Left axis deviation Septal infarct , age undetermined Non-specific intra-ventricular conduction delay Abnormal ECG When compared with ECG of 02-NOV-2010 16:20, Vent. rate has increased BY 29 BPM QRS duration has increased Septal infarct is now Present Confirmed by Brock Mandel ([id number]) on 03/26/2022 2:36:40 PM Referred By: REFERRED SELF Confirmed By:Brock Mandel
--- NOTE | 2022-03-26 20:10 | Hospitalist Progress Note ---
Date of Service March 26, 2022 Assessment & Plan (1) COVID-19: Plan: He is about 4-5 days into the illness course. No radiographic evidence or clinical evidence of pneumonia. O2 sats during my visit - 94% in RA, but other documented o2 sat readings low 90s. [id number] will defer for now on Remdesivir. Cont dexamethasone due to low-normal O2 sats AND, given his chronic ITP, will likely help his platelets recover faster. Day #2 today. PT, OT evals. Other supportive care. Incentive ismael. Cont COVID precautions. (2) Acute dyspnea: Plan: He mentions that he has mild LUNDY but in the same breath he states it is more of a total body weakness feeling. Low threshold to repeat imaging - either cxr or CT chest. Incentive spirometry. Dexamethasone. Defer on Remdesivir. Follow O2 sats carefully. (3) Repeated falls: Plan: x 2 at home. Given low platelets will check CT head - ensure no ICH. Check CT c-spine - r/o Fx. PT, OT evals. Falls - 2nd to weakness in setting of COVID infection. 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 Likely ITP. If he has ITP there is often a drop in platelets in the setting of viral infections such as COVID. Daily CBC to track platelet count. Dexamethasone started for COVID will likely positively impact his platelet count. If platelets drop to very low levels (e.g. <30) - IVIG? Higher dose steroids? (5) Elevated troponin: Plan: myocardial demand ischemia in setting of #1 no evidence of ACS echo pending (6) Hypertension: Plan: labile but acceptable would not make changes at this time (7) Diabetes mellitus, type II: Plan: a1c in 08/2021 7.6% repeat level pending BSGs uncontrolled due to stress of illness & steroids adjust novolog adjust lantus (8) CAD (coronary artery disease), three affiliated artery transplanted heart: Plan: with h/o CABG no evidence ACS cont aspirin - uncertain why he is on 325 as opposed to 81mg daily cont statin cont imdur uncertain why he is not on beta jaren holding FARAZ due to recent SHAHANA (9) Hypokalemia: Plan: replace BMP am (10) Hypomagnesemia: Plan: history of, but levels wnl while here (11) Acute kidney injury superimposed on CKD: Plan: presenting Cr 1.4 today 1.2 SHAHANA 2nd to #1 hold FARAZ 1 more day hold HCTZ (12) Hyperlipidemia: Plan: cont statin (13) Hyperbilirubinemia: Plan: all total bili levels dating to 2002 are mildly high c/w Gilbert's syndrome no Rx needed (14) Hx of CABG: Plan daughter extensively updated by phone this evening Admission and Anticipated Discharge Date Admission Date: March 25, 2022 Subjective patient "feeling better" coughing, but denies dyspnea at rest reports feeling a little short of breath with activity but it is more so significant fatigue/weakness with activity staff report he is VERY UNSTEADY on his feet pt fell twice at home before coming to hospital denies head injury but his recount of the falls isn't great eating/drinking ok tele overnight wnl Review of Systems Review of Systems: gen - no fevers or chills cv - no chest pain, no orthopnea, no edema pulm - cough, dry; no sputum GI - no nausea/emesis; no diarrhea Physical Exam Physical Exam: gen - pleasant, NAD, looks tired mouth - MMM neck - no JVD heart - RRR, s1 s2, no murmur lungs - CTA b/l, no rales, no wheeze abd - soft NT ND BS+ ext - no edema, pulses 2+ b/l neuro - strength 5/5 x 4 exts psych - slight confusion? otherwise awake/alert Results & Data Results & Data ([facility]) Vital Signs (Past 12 Hours) Vital Signs Temp Pulse Pulse Resp BP BP Pulse Ox 03/26/22 19:22 36.6 C 73 18 116/66 93 03/26/22 16:03 36.8 C 81 18 127/72 91 03/26/22 15:43 81 03/26/22 11:28 37.1 C 83 18 118/67 91 O2 Del Method 03/26/22 19:22 Room Air 03/26/22 16:03 Room Air 03/26/22 15:43 03/26/22 11:28 Room Air Laboratory Results Laboratory Results - last 24 hr 12/24/22 12/24/22 12/24/22 20:45 20:45 20:45 WBC 5.05 RBC 4.90 Hgb 14.6 Hct 43.3 MCV 88.4 MCH 29.8 MCHC 33.7 RDW Std Deviation 43.1 RDW Coeff of Kirsten 13.2 Plt Count 49 L MPV 11.6 Immature Gran % (Auto) 0.6 Neut % (Auto) 77.6 Lymph % (Auto) 7.3 [place] % (Auto) 14.3 Eos % (Auto) 0.0 Baso % (Auto) 0.2 Neut # (Auto) 3.92 Lymph # (Auto) 0.37 L [place] # (Auto) 0.72 Eos # (Auto) 0.00 Baso # (Auto) 0.01 Immature Gran # (Auto) 0.03 H Platelet Estimate Decreased L Sodium 137 Potassium 3.4 L Chloride 100 Carbon Dioxide 29 Anion Gap 8 BUN 27 H Creatinine 1.47 H Est Cr Clr Drug Dosing 37.4 Est GFR ( Amer) 50.1 Est GFR (Non-Af Amer) 43.2 BUN/Creatinine Ratio 18.4 Glucose 165 H POC Glucose Estimat Average Glucose Hemoglobin A1c Calcium 9.6 Phosphorus Magnesium 1.8 Total Bilirubin 4.4 H AST 17 ALT 15 Alkaline Phosphatase 51 Troponin I High Sens 29.4 H Total Protein 6.8 Albumin 4.3 Globulin 2.5 Albumin/Globulin Ratio 1.7 Lipase 32 Procalcitonin 0.07 Nasal Screen MRSA (PCR) SARS-CoV-2 (PCR) Influenza Type A (PCR) Influenza Type B (PCR) RSV (RT-PCR) 03/25/22 03/26/22 03/26/22 21:12 01:19 02:17 WBC RBC Hgb Hct MCV MCH MCHC RDW Std Deviation RDW Coeff of Kirsten Plt Count MPV Immature Gran % (Auto) Neut % (Auto) Lymph % (Auto) [place] % (Auto) Eos % (Auto) Baso % (Auto) Neut # (Auto) Lymph # (Auto) [place] # (Auto) Eos # (Auto) Baso # (Auto) Immature Gran # (Auto) Platelet Estimate Sodium Potassium Chloride Carbon Dioxide Anion Gap BUN Creatinine Est Cr Clr Drug Dosing Est GFR ( Amer) Est GFR (Non-Af Amer) BUN/Creatinine Ratio Glucose POC Glucose Estimat Average Glucose Hemoglobin A1c Calcium Phosphorus Magnesium Total Bilirubin AST ALT Alkaline Phosphatase Troponin I High Sens 30.4 H Total Protein Albumin Globulin Albumin/Globulin Ratio Lipase Procalcitonin Nasal Screen MRSA (PCR) Negative SARS-CoV-2 (PCR) POSITIVE A* Influenza Type A (PCR) Negative Influenza Type B (PCR) Negative RSV (RT-PCR) Negative 03/26/22 03/26/22 03/26/22 02:17 02:17 02:17 WBC 4.32 L RBC 4.54 L Hgb 13.6 L Hct 40.0 L MCV 88.1 MCH 30.0 MCHC 34.0 RDW Std Deviation 43.0 RDW Coeff of Kirsten 13.2 Plt Count 47 L MPV 11.2 Immature Gran % (Auto) 0.7 Neut % (Auto) 86.8 Lymph % (Auto) 7.4 [place] % (Auto) 5.1 Eos % (Auto) 0.0 Baso % (Auto) 0.0 Neut # (Auto) 3.75 Lymph # (Auto) 0.32 L [place] # (Auto) 0.22 L Eos # (Auto) 0.00 Baso # (Auto) 0.00 Immature Gran # (Auto) 0.03 H Platelet Estimate Sodium 134 L Potassium 3.8 Chloride 101 Carbon Dioxide 26 Anion Gap 7 BUN 26 H Creatinine 1.27 Est Cr Clr Drug Dosing 48.1 Est GFR ( Amer) 59.7 Est GFR (Non-Af Amer) 51.5 BUN/Creatinine Ratio 20.5 H Glucose 271 H POC Glucose Estimat Average Glucose Pending Hemoglobin A1c Pending Calcium 8.7 Phosphorus 2.3 L Magnesium 1.8 Total Bilirubin AST ALT Alkaline Phosphatase Troponin I High Sens Total Protein Albumin 3.8 Globulin Albumin/Globulin Ratio Lipase Procalcitonin Nasal Screen MRSA (PCR) SARS-CoV-2 (PCR) Influenza Type A (PCR) Influenza Type B (PCR) RSV (RT-PCR) 03/26/22 03/26/22 03/26/22 07:22 07:50 11:27 WBC RBC Hgb Hct MCV MCH MCHC RDW Std Deviation RDW Coeff of Kirsten Plt Count MPV Immature Gran % (Auto) Neut % (Auto) Lymph % (Auto) [place] % (Auto) Eos % (Auto) Baso % (Auto) Neut # (Auto) Lymph # (Auto) [place] # (Auto) Eos # (Auto) Baso # (Auto) Immature Gran # (Auto) Platelet Estimate Sodium Potassium Chloride Carbon Dioxide Anion Gap BUN Creatinine Est Cr Clr Drug Dosing Est GFR ( Amer) Est GFR (Non-Af Amer) BUN/Creatinine Ratio Glucose POC Glucose 297 H 296 H Estimat Average Glucose Hemoglobin A1c Calcium Phosphorus Magnesium Total Bilirubin AST ALT Alkaline Phosphatase Troponin I High Sens 26.8 H Total Protein Albumin Globulin Albumin/Globulin Ratio Lipase Procalcitonin Nasal Screen MRSA (PCR) SARS-CoV-2 (PCR) Influenza Type A (PCR) Influenza Type B (PCR) RSV (RT-PCR) 03/26/22 03/26/22 14:10 16:08 WBC RBC Hgb Hct MCV MCH MCHC RDW Std Deviation RDW Coeff of Kirsten Plt Count MPV Immature Gran % (Auto) Neut % (Auto) Lymph % (Auto) [place] % (Auto) Eos % (Auto) Baso % (Auto) Neut # (Auto) Lymph # (Auto) [place] # (Auto) Eos # (Auto) Baso # (Auto) Immature Gran # (Auto) Platelet Estimate Sodium Potassium Chloride Carbon Dioxide Anion Gap BUN Creatinine Est Cr Clr Drug Dosing Est GFR ( Amer) Est GFR (Non-Af Amer) BUN/Creatinine Ratio Glucose POC Glucose 239 H Estimat Average Glucose Hemoglobin A1c Calcium Phosphorus Magnesium Total Bilirubin AST ALT Alkaline Phosphatase Troponin I High Sens 21.1 H Total Protein Albumin Globulin Albumin/Globulin Ratio Lipase Procalcitonin Nasal Screen MRSA (PCR) SARS-CoV-2 (PCR) Influenza Type A (PCR) Influenza Type B (PCR) RSV (RT-PCR) PG Care Time/CCT Total # of Minutes Spent Total Time Spent with Patient: Total time spent is greater than 50% in coordination of care (as documented) at patient's floor/unit and/or counseling patient: Coding Level of Care Code 16846 Subseq Hosp Care Lvl 3 Diagnoses COVID-19 U07.1 Acute dyspnea R06.00 Repeated falls R29.6 Immune thrombocytopenic purpura D69.3 Elevated troponin R77.8 Hypertension I10 Diabetes mellitus, type II E11.9 CAD (coronary artery disease), three affiliated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
[2022-03-26] MEDS ORDERED: LANTUS PER UNIT CHARGE SQ SCH ×2 (21:00)
[2022-03-27 07:17] LABS: Albumin Level 3.6 gm/dl (3.4-5.0); BUN Creatinine Ratio 28.1 (10-20); Calcium 8.8 mg/dl (8.5-10.1); Creatinine Clr Calc Pharmacy 53.6 ml/min; Est GFR (African American) 68.1 ml/min; Est GFR (Non-African American) 58.7 ml/min; Magnesium 2.1 mg/dl (1.7-2.4); Phosphorus 2.3 mg/dl (2.5-4.9)
--- NOTE | 2022-03-27 07:30 | CT Scan Report ---
CT cervical spine wo con CLINICAL HISTORY: 86 years-old Male with falls x 2, eval Fx. Acute neck injury status post fall COMPARISON: Head CT of same day, CT soft tissue neck 11/16/2010 TECHNIQUE: Multiple axial CT images of the cervical spine were obtained without contrast. A dose low ering technique was utilized adhering to the principles of ALARA. FINDINGS: Straightening of the normal cervical lordosis. Multilevel degenerative changes of the cervi chirag spine include severe disc space narrowing at C4-C5 and C6 or C7 with multilevel spondylitic spurr ing and posterior disc osteophyte complex formations with severe facet arthrosis. Mild T1 wedge defor mity, likely chronic. No acute fracture or subluxation identified. There is multilevel neural foramin al narrowing with at least mild multilevel central canal stenosis. No prevertebral edema identified. Calcified plaque of the carotid bulbs. Small mastoid effusions. The visualized lung apices appear clear. IMPRESSION: No acute fracture or subluxation. ACT 112: Negative or not required by law. The above report was generated using voice recognition software. It may contain grammatical, syntax o r spelling errors. Electronically signed by: Shaan Tiwari M.D. 03/27/2022 7:28 AM
[2022-03-27 07:32] LABS: Hematocrit (blood only) 39.6 % (40.1-51.0); Hemoglobin 13.4 g/dl (14.0-18.0); Mean Corpuscular Hemoglobin 29.5 pg (25.0-34.0); Mean Corpuscular Hgb Conc 33.8 g/dL (32.0-36.0); Mean Platelet Volume 11.2 fL (9.4-12.4); Platelet Count 59 K/uL (130-400); RDW Coefficient of Variation 13.2 % (11.5-14.5); RDW Standard Deviation 41.6 fL (36.4-46.3); Red Blood Count 4.55 M/uL (4.63-6.08); White Blood Count 6.23 K/ul (4.8-10.8)
[2022-03-27 07:49] LABS: Echinocytes 1+; Immature Granulocytes # (auto) 0.03 K/uL (0.00-0.02); Immature Granulocytes % (auto) 0.5 %; Lymphocytes # (auto) 0.63 K/uL (1.2-3.4); Lymphocytes % (auto) 10.1 %; Monocytes # (auto) 0.61 K/uL (0.24-0.82); Monocytes % (auto) 9.8 %; Neutrophils # (auto) 4.96 K/uL (1.4-6.5); Neutrophils % (auto) 79.6 %
[2022-03-27] MEDS: INSULIN ASPART PER UNIT SC SCH ×3 (08:44→17:26)
--- NOTE | 2022-03-27 08:46 | CT Scan Report ---
CT head/brain wo con CLINICAL HISTORY: falls x 2, low platelets; eval ICH Technique: Contiguous axial CT images of the head were acquired from the base of the skull to the rolo moises without intravenous contrast administration. Images were viewed in brain, subdural and bone windo ws. Automated dose lowering techniques and/or adjustment according to patient size were utilized for this exam. Comparison: None available at the time of this dictation. Findings: Areas of decreased attenuation are present in the periventricular and subcortical white matter bilate rally consistent with small vessel ischemic disease. Generalized cerebral atrophy with commensurate e nlargement of the ventricles, sulci, and cisterns is also present. There is no acute intracranial hem orrhage or evidence of acute territorial infarction. No shift of the midline structures, mass effect, or extra-axial abnormalities are shown. Atherosclerotic calcifications are present in the intracran ial segments of the internal carotid arteries. Imaged portions of the paranasal sinuses and mastoid air cells are clear. The orbits appear normal. There are no acute fractures of the calvaria or scalp swelling. Impression: No acute intracranial hemorrhage, no evidence of acute territorial infarction or other acute intracra nial disease process. ACT 112: Negative or not required by law. Electronically signed by: Figueroa Swenson M.D. 03/27/2022 8:45 AM
[2022-03-27] MEDS: ISOSORBIDE MONO EXTENDED REL 30 MG TABCR PO SCH (08:47)
[2022-03-27] MEDS: ASPIRIN 325 MG ECTAB PO SCH (08:47)
[2022-03-27] MEDS: MULTIVITAMIN TAB PO SCH (08:47)
[2022-03-27] MEDS: POTASSIUM CHLORIDE 10 MEQ TABCR PO SCH (08:47)
[2022-03-27] MEDS: amLODIPine BESYLATE 5 MG TAB PO SCH (08:47)
[2022-03-27] MEDS: ATORVASTATIN 40 MG TAB PO SCH (08:47)
[2022-03-27] MEDS: CHOLECALCIFEROL 5,000 UNITS 125 MCG TAB PO SCH (08:47)
[2022-03-27] MEDS: dexAMETHasone 6 MG in SYRINGE 0 ML IV SCH (08:47)
[2022-03-27 09:37] LABS: Estimated Average Glucose 183 mg/dl
--- NOTE | 2022-03-27 11:19 | XCELERA ---
[id number]
--- NOTE | 2022-03-28 08:23 | Discharge Summary ---
Date of Service March 27, 2022 Admission HPI Per Admitting Provider The patient is an 86-year-old male with a past medical history including hyperbilirubinemia, status post CABG, hypertension, diabetes mellitus type 2, ITP, low back pain, hyperlipidemia, and CAD. He was noted by family to have the above symptoms. Work-up in the emergency department include the following abnormal laboratories: Magnesium 1.8, potassium 3.4, troponin 29.4, creatinine 1.47 and COVID-19 positive. Pulse ox on room air was noted to be 90-91% at baseline improving significantly after nebulizer treatment. Principal Diagnosis COVID 19 Discharge Exam gen - pleasant, NAD, looks tired mouth - MMM neck - no JVD heart - RRR, s1 s2, no murmur lungs - CTA b/l, no rales, no wheeze abd - soft NT ND BS+ ext - no edema, pulses 2+ b/l neuro - strength 5/5 x 4 exts psych - slight confusion? otherwise awake/alert Discharge Data Allergies Allergy/AdvReac Type Severity Reaction Status Date / Time No Known Drug Allergies Allergy NKDA Verified 03/25/22 23:40 Consultations 03/25/22 22:53 ED Decision to Admit Stat Ordered Studies 03/26/22 18:34 CT cervical spine wo con Urgent Head CT [CT head/brain wo con] Urgent Hospital Course (1) COVID-19: He is about 4-5 days into the illness course. No radiographic evidence or clinical evidence of pneumonia. O2 sats during my visit - 94% in RA, but other documented o2 sat readings low 90s. No remdesevir ordered Cont dexamethasone due to low-normal O2 sats AND, given his chronic ITP, will likely help his platelets recover faster. will complete decadron as an outpatient ad stated below. Patient reports feeling stronger, patient did not have official PT evals, but his strength was asessed and he was 5/5 in lower extremities and able to ambulate multiple laps in room with no difficulty. Other supportive care received: Incentive ismael. COVID precautions. (2) Acute dyspnea: He mentions that he has mild LUNDY but in the same breath he states it is more of a total body weakness feeling. Low threshold to repeat imaging - either cxr or CT chest. Incentive spirometry. Dexamethasone. Defer on Remdesivir. Follow O2 sats carefully. (3) Repeated falls: x 2 at home. Given low platelets will check CT head - ensure no ICH. Check CT c-spine - r/o Fx. PT, OT evals. Falls - 2nd to weakness in setting of COVID infection. 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 Likely ITP. recommend PCP follows up levels. Dexamethasone started for COVID will likely positively impact his platelet count. (5) Elevated troponin: myocardial demand ischemia in setting of #1 no evidence of ACS echo completed and normal. 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 no evidence ACS cont aspirin - uncertain why he is on 325 as opposed to 81mg daily cont statin cont imdur uncertain why he is not on beta jaren (9) Hypokalemia: replaced (10) Hypomagnesemia: history of, but levels wnl while here (11) Acute kidney injury superimposed on CKD: presenting Cr 1.4 today 1.2 SHAHANA 2nd to #1 hold FARAZ 1 more day hold HCTZ (12) Hyperlipidemia: cont statin (13) Hyperbilirubinemia: all total bili levels dating to 2002 are mildly high c/w Gilbert's syndrome no Rx needed (14) Hx of CABG: Plan daughter extensively updated by phone this evening Total Time Total Time Spent Total Time Spent (In Minutes): 35 Discharge Plan Discharge Items Patient Disposition: Home - Self-Care Reason For Visit: COVID - 19, ELEVATED TROPONIN Discharge Diagnosis: COVID 19 Condition on Discharge: Fair Activity: Resume your previous activity Non-emergency contact: Primary Care Provider Call non-emergency contact if: you have any medication questions Follow-up/Referrals: Javier Anguiano DO [Primary Care Provider] - 04/06/22 11:30 am Diet: Regular Addtl Attending Provider Instructions: Good evening Mr. Ruth, You were seen for COVID 19. Thankfully, you have been getting stronger each day. Today, you have been able to walk in your room with out any issues. You strength appeared to be normal and you were able to sit and stand up with no difficulty. I recommend you continue taking decadron once a day for 8 more days.. Your last day to quarantine is tomorrow. But when out in public, please continue to mask until next Sunday morning. Recommend close folllowup with your PCP in 1-2 weeks. Also for the short term, recommend cutting back on your aspirin while on decadron. Also recommend holding the lisinopril. Pending Studies at Discharge: No Stand-Alone Forms: [facility], Smoking Cessation Medications and DC Order Prescriptions: New aspirin 81 mg capsule 81 mg PO DAILY Qty: 30 0RF dexamethasone 6 mg tablet 6 mg PO DAILY Qty: 8 0RF Continued (DME) Contour Next Test Strips Strip See Dose Instructions .ROUTE .MEDSUPPLY Qty: 300 3RF Rx Instructions: Test blood sugars 3 times a day (DME) pen needle, diabetic [BD Ultra-Fine Danielle Pen Needle] 32 gauge x 5/32" needle See Dose Instructions .ROUTE .MEDSUPPLY Qty: 400 3RF Dose Instruction: As directed Rx Instructions: Inject insulin 4 times a day amlodipine 10 mg tablet 10 mg PO QAM Qty: 90 3RF Rx Instructions: TAKE 1 TABLET BY MOUTH DAILY potassium chloride 10 mEq capsule, extended release 10 meq PO QAM Qty: 90 3RF insulin glargine [Basaglar KwikPen U-100 Insulin] 100 unit/mL (3 mL) insulin pen 35 unit SQ QPM Qty: 45 3RF atorvastatin 40 mg tablet 40 mg PO QAM Qty: 90 3RF (DME) lancets [Microlet Lancet] misc See Dose Instructions .ROUTE .MEDSUPPLY Qty: 50 Rx Instructions: Test blood sugars 3 times a day multivitamin [Multiple Vitamins] Tablet 1 tab PO DAILY nitroglycerin [Nitrostat] 0.4 mg tablet, sublingual 0.4 mg sublingual Q5M PRN (Reason: dyspnea) Qty: 25 5RF Rx Instructions: do not exceed 3 doses per episode isosorbide mononitrate 30 mg tablet extended release 24 hr 30 mg PO DAILY Qty: 90 3RF Discontinued lisinopril-hydrochlorothiazide 20-12.5 mg tablet 2 tab PO QAM Qty: 180 3RF aspirin 325 mg tablet 325 mg PO DAILY No Action insulin aspart U-100 [Novolog Flexpen U-100 Insulin] 100 unit/mL (3 mL) insulin pen 52 unit subcut DAILY Qty: 60 0RF Rx Instructions: Inject 16 units with breakfast, 16 units with lunch and 20 units with dinner plus sliding scale up to TDD 52 units Discharge Orders: Discharge Order (Routine); Ordered 03/27/22 Ordered By: Doe Ryan Admission Data Admit Date/Time: 03/25/22 23:18 Attending Provider: Doe Ryan Admit Provider: Danish Lucas Primary Care Provider: Javier Anguiano Other Providers: Danish Lucas Other Interventions: Discharge Summary Assessment (RN) Last Done: 03/27/22 19:43 Coding Level of Care Code D/C DAY MANAGEMENT >30 MINS Diagnoses COVID-19 U07.1 Acute dyspnea R06.00 Repeated falls R29.6 Immune thrombocytopenic purpura D69.3 Elevated troponin R77.8 Hypertension I10 Diabetes mellitus, type II E11.9 CAD (coronary artery disease), [place]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
== END 2022-03-27 20:34 | disposition home or self-care (01) | DRG 178 ==
LOC: ED 19:33 → 2S 23:18 → SUATTDRO 23:18 → 2S 03-26 00:16

== ENCOUNTER 2023-02-15 17:39 | Observation (INO) ==
--- NOTE | 2023-02-15 17:44 | ED Triage Note ---
Date of Service February 15, 2023 History of Present Illness This patient was briefly evaluated while in triage. An abbreviated physical exam was performed. This patient is a 87-year-old Male who presents to the ED for evaluation confusion, lightheaded, cloudy vision, off balance started last evening and continued today just at Dr. Anguiano's office and sent here Physical Exam GENERAL: NAD CARDIOVASCULAR: RRR RESPIRATORY: CTA ABDOMEN: BS x 4. Nontender to palpation. NEURO: unsteady gait, clear speech, no facial drop, equal pattern changer strength Initial orders for labs and / or imaging were placed and patient was placed in the waiting area until a bed is available. Please see further documentation for the full ED course.
[2023-02-15 18:19] LABS: Basophils # (auto) 0.04 K/uL (0.00-0.20); Basophils % (auto) 0.7 %; Eosinophils # (auto) 0.14 K/uL (0.00-0.50); Eosinophils % (auto) 2.4 %; Hematocrit (blood only) 48.7 % (42.0-52.0); Hemoglobin 16.7 g/dl (14.0-18.0); Immature Granulocytes # (auto) 0.03 K/uL (0.01-0.20); Immature Granulocytes % (auto) 0.5 %; Lymphocytes # (auto) 1.29 K/uL (1.20-3.40); Lymphocytes % (auto) 21.9 %; Mean Corpuscular Hemoglobin 29.7 pg (25.0-34.0); Mean Corpuscular Hgb Conc 34.3 g/dL (32.0-36.0); Mean Corpuscular Volume 86.7 fL (80.0-100.0); Mean Platelet Volume 10.4 fL (9.4-12.4); Monocytes # (auto) 0.48 K/uL (0.11-0.59); Monocytes % (auto) 8.2 %; Neutrophils % (auto) 66.3 %; Platelet Count 135 K/uL (130-400); RDW Coefficient of Variation 13.1 % (11.5-14.5); RDW Standard Deviation 40.5 fL (36.4-46.3); Red Blood Count 5.62 M/uL (4.70-6.10); White Blood Count 5.88 K/ul (4.8-10.8)
[2023-02-15 18:22] LABS: Albumin Globulin Ratio 1.9 (0.9-2); BUN Creatinine Ratio 16.7 (10-20); Bilirubin,Total 3.1 mg/dl (0.2-1.0); Calcium 11.5 mg/dl (8.6-10.3); Creatinine Clr Calc Pharmacy 42.1 ml/min; Est GFR (African American) 63.5 ml/min; Est GFR (Non-African American) 54.8 ml/min; Globulin 2.7 gm/dl (2.5-4.0); Magnesium 2.2 mg/dl (1.7-2.4); Potassium 3.8 mmol/L (3.5-5.1); Total Protein 7.7 gm/dl (6.0-8.3)
[2023-02-15 18:29] LABS: Troponin I High Sensitivity 10.1 pg/ml (0-20)
[2023-02-15 18:35] LABS: Partial Thromboplastin Ratio 0.9; Partial Thromboplastin Time 24.2 Seconds (21.0-31.0); Prothrombin Time 10.9 Seconds (9.0-12.0)
[2023-02-15] MEDS ORDERED: SODIUM CHLORIDE 0.9% 500 ML IV ONE (19:06)
--- NOTE | 2023-02-15 19:17 | Emergency Department Note ---
Impression & Plan Dizziness, Blurry vision, Ambulatory dysfunction, Occlusion of right vertebral artery ED Provider Note NAME: ROMY ROJAS AGE: 87 SEX: M : 1935 ARRIVES VIA: Walk-In INFORMANT: [Patient][family] ED PROVIDER(S): [Mina Roberts MD] CHIEF COMPLAINT: Stroke symptoms HISTORY OF PRESENT ILLNESS: The patient is an 87-year-old male who has had difficulty for about 2 days, things are definitely worse today. He has noticed some difficulty with his balance and he feels unsteady with walking. He has had some blurry vision and some lightheadedness. His daughter has noticed he seems more hesitant when he tries to speak although there is no speech slur or facial droop. The patient has not noticed any one-sided weakness. No cough or cold or congestion. No shortness of breath or chest pain. The patient went to his doctor's office today, he was referred to the ER for the possibility of stroke. He has no history of previous stroke. PMHx/PSHx/Social Hx: See Below PHYSICAL EXAM: GENERAL: Patient is in no acute distress. HEENT: No acute trauma, normocephalic atraumatic, mucous membranes moist, no nasal congestion. NECK: No stridor, no adenopathy, no meningismus, trachea is midline. LUNGS: Occasional crackles heard at the right base, no wheezing or respiratory distress. HEART: Subtle systolic murmur, regular rate and rhythm. ABDOMEN: Soft, nontender, no peritonitis. EXTREMITIES: No cyanosis, full range of motion of all the joints without pain or difficulty. NEUROLOGIC: Oriented x 3, no acute motor or sensory deficits, no focal weakness. He does have a mild hesitancy when he speaks, no facial droop, no extremity drift or cerebellar dysfunction. Excellent historian. SKIN: No jaundice, no diaphoresis. DIFFERENTIAL DIAGNOSIS: TIA or CVA, intracranial bleeding, electrolyte imbalance, viral illness, anemia, SD, UTI, among others. EMERGENCY DEPARTMENT PROCEDURES: MEDICAL DECISION MAKING: There is no leukocytosis or concerning anemia. There is a normal platelet count. No coagulopathy. No renal failure or significant electrolyte abnormality. Bilirubin is elevated however, this has been documented before. ECG shows a normal sinus rhythm, no dysrhythmia. Cardiac enzyme testing x1 is not consistent with acute cardiac injury. Urinalysis does not show infection. Respiratory bio fire was negative. Chest film does not show pneumonia or CHF. Brain CT shows no acute bleed or mass effect. CT angio of the head and neck were performed, there was a right vertebral artery occlusion of unknown age. The patient presents with difficulty with balance, dizziness. He has had some blurry vision. On my exam, he did not have any focal extremity deficits. I did speak with neurology, Dr. Lauren. The patient was given oral aspirin. He will be hospitalized for further stroke work-up. During his stay, a 500 cc saline bolus was also given. Of note, the patient is not a candidate for tPA as he has had symptoms now for 2 days. The patient is aware of his findings, he understands the reason for the hospital stay. I did speak with case management, the on-call hospitalist consulted. Prior/Outside records/notes reviewed: Cardiology note from 12/12/2022 discussing his coronary artery disease and other chronic issues. ECG per my interpretation: Indication was weakness. The ECG shows a normal sinus rhythm with a rate of 63. There is a potential old septal infarct. There is no ST elevation, no PVCs. The QTc is 458. Continuous Cardiac Monitoring per my interpretation: An order was placed for continuous cardiac monitoring. The monitor shows a rate of 85 with normal sinus rhythm. Imaging/x-ray results per my interpretation: Chest x-ray does not show pneumonia, pneumothorax or CHF. Chronic Medical/Social conditions affecting care: Coronary artery disease. Care/Management discussed with: Case management, neurology on-call-Dr. Lauren, the on-call hospitalist. Level of care consideration(s): After review of the information above and other included data: --I believe the patient requires escalation of care to admission Critical Care Note: I have personally spent 43 minutes of critical care time in the direct management of this patient. This includes bedside care, interpretation of diagnostic studies, and testing, discussion with consultants, patient, and family members, and other required patient management activities. This 43 minutes is in excess of all separately billable procedures. DISPOSITION: Admission Past Med/Surg History Medical History Acute kidney injury superimposed on CKD Right hand paresthesia Cataracts, bilateral History of COVID-19 Snores REFUSED SLEEP STUDY Diabetes [place] (hard of hearing) Low back pain Thyroglossal duct cyst Seborrheic keratosis Chronic sinusitis Anemia Dysphagia DENIES Calcaneal spur Basal cell carcinoma HX Diabetic nephropathy DENIES Coronary artery disease . Followed by cardiology. Hyperlipidemia Chronic kidney disease AGE APPROPRIATE KIDNEY DISEASE PER DAUGHTER Hypertension Surgical History History of squamous cell carcinoma excision 08/08/22 History of left cataract surgery History of thyroid surgery CYST REMOVED, NON CANCEROUS 50+ YR AGO History of carpal tunnel release H/O colonoscopy No further screening recommended, 03/2014 Hx of CABG OPEN HEART SURGERY, BLOCKAGES 2006 AT [place] Hx of total knee arthroplasty Left, 2002 Family History Unknown No problems noted. Father Prostate cancer Alcohol abuse Mother Hypertension Stroke Brother Atrial fibrillation Heart disease Grandmother Diabetes Stroke Uncle Diabetes Denies family history of Ovarian cancer Myocardial infarction Breast cancer Lung cancer Colorectal cancer Social History Smoking Status: Never smoker Second Hand Exposure: No; Do You Dip or Chew Tobacco: No; Hx Alcohol Use: No Hx Substance Use: No Preferred Language: Danish Communication Ability: Effective Communication Ability Comment: [place] Visual Impairment: Limited Hearing Ability: Use of Hearing Aid Refrigeration Operator Required: No Beliefs That Will Affect Care: None marital status: Current Living Situation: Spouse Current Living Situation Comment: [facility] apartments current occupational status: retired 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 How many Children do You have: 3 Feels Safe at Home: Yes Childhood Exposure to Second-Hand Smoke: No caffeine: Yes Dental Care, Regularly: No Physical Activity Frequency: 1-2 Times per Week Seatbelt Use: always Sunscreen Use: No Assistive Devices: Glasses and Walker Allergies Allergies Allergy/AdvReac Type Severity Reaction Status Date / Time No Known Allergies Allergy Verified 02/15/23 19:35 Home Meds Home Medications Medication Instructions Recorded Confirmed lancets (Microlet Lancet) #50 ea 10/28/18 02/15/23 multivitamin (Multiple Vitamins 1 tab PO DAILY 05/24/21 02/15/23 tablet) insulin aspart U-100 100 unit/mL 0 unit subcut DAILY 02/15/23 02/15/23 (3 mL) subcutaneous pen (Novolog FlexPen U-100 Insulin aspart) potassium chloride 10 mEq 10 meq PO DAILY 02/15/23 02/15/23 capsule,extended release Previous Rx's Medication Instructions Recorded Contour Next Test Strips (blood #300 ea 12/08/20 sugar diagnostic) aspirin 81 mg capsule 81 mg PO DAILY #30 caps 03/27/22 isosorbide mononitrate 30 mg 30 mg PO DAILY #90 tabs 04/18/22 tablet,extended release 24 hr atorvastatin 40 mg tablet 40 mg PO QAM #90 tabs 07/07/22 amlodipine 10 mg tablet 10 mg PO QAM #90 tabs 08/02/22 lisinopril 20 1 tab PO QAM #180 tabs 08/11/22 mg-hydrochlorothiazide 12.5 mg tablet BD Ultra-Fine Danielle Pen Needle 32 #400 ea 11/20/22 gauge x 5/32" (pen needle, diabetic) nitroglycerin 0.4 mg sublingual 0.4 mg sublingual Q5M PRN dyspnea 12/12/22 tablet (Nitrostat) #25 tabs insulin glargine 100 unit/mL (3 35 unit (0.35 mL) subcut QPM #45 mL 12/25/22 mL) subcutaneous pen (Basaglar KwikPen U-100 Insulin) Results & Data (ED) Vital Signs Vital Signs - 24 hr 02/15/23 17:43 02/15/23 18:23 02/15/23 18:25 Temperature 36.7 C Temperature Source Oral Pulse Rate 65 59 L Pulse Rate [Right Finger] 60 Pulse Rate from SpO2 Sensor Pulse Rhythm [Right Finger] Regular Pulse Strength [Right Finger] Normal Respiratory Rate 20 18 21 Respiratory Effort / Characteristics Non-Labored Spontaneous Respiratory Depth Normal Respiratory Pattern Regular Blood Pressure 183/99 H Blood Pressure [Right Arm] 165/102 H Blood Pressure Mean 127 Blood Pressure Mean [Right Arm] 123 Blood Pressure Position Sitting Blood Pressure Position [Right Arm] Lying Pulse Oximetry 95 97 Oxygen Delivery Method Room Air Sepsis Recent Fever Within 48 Hours No Sepsis New/Unexplained Change in Mental Status No Sepsis Action Taken by Nursing No Action Required 02/15/23 18:30 02/15/23 18:40 02/15/23 18:50 Temperature Temperature Source Pulse Rate 57 L 58 L 58 L Pulse Rate [Right Finger] Pulse Rate from SpO2 Sensor 58 L 59 L 58 L Pulse Rhythm [Right Finger] Pulse Strength [Right Finger] Respiratory Rate 17 15 17 Respiratory Effort / Characteristics Respiratory Depth Respiratory Pattern Blood Pressure Blood Pressure [Right Arm] Blood Pressure Mean Blood Pressure Mean [Right Arm] Blood Pressure Position Blood Pressure Position [Right Arm] Pulse Oximetry 95 94 97 Oxygen Delivery Method Room Air Room Air Sepsis Recent Fever Within 48 Hours Sepsis New/Unexplained Change in Mental Status Sepsis Action Taken by Nursing 02/15/23 19:00 02/15/23 19:10 02/15/23 19:20 Temperature Temperature Source Pulse Rate 56 L 58 L 55 L Pulse Rate [Right Finger] Pulse Rate from SpO2 Sensor 56 L 59 L 56 L Pulse Rhythm [Right Finger] Pulse Strength [Right Finger] Respiratory Rate 17 13 12 Respiratory Effort / Characteristics Respiratory Depth Respiratory Pattern Blood Pressure Blood Pressure [Right Arm] Blood Pressure Mean Blood Pressure Mean [Right Arm] Blood Pressure Position Blood Pressure Position [Right Arm] Pulse Oximetry 95 95 96 Oxygen Delivery Method Room Air Sepsis Recent Fever Within 48 Hours Sepsis New/Unexplained Change in Mental Status Sepsis Action Taken by Nursing 02/15/23 19:46 02/15/23 19:50 02/15/23 20:00 Temperature Temperature Source Pulse Rate 76 66 60 Pulse Rate [Right Finger] Pulse Rate from SpO2 Sensor 61 65 60 Pulse Rhythm [Right Finger] Pulse Strength [Right Finger] Respiratory Rate 16 20 17 Respiratory Effort / Characteristics Respiratory Depth Respiratory Pattern Blood Pressure 115/83 Blood Pressure [Right Arm] Blood Pressure Mean 93 Blood Pressure Mean [Right Arm] Blood Pressure Position Blood Pressure Position [Right Arm] Pulse Oximetry 93 96 96 Oxygen Delivery Method Room Air Room Air Sepsis Recent Fever Within 48 Hours Sepsis New/Unexplained Change in Mental Status Sepsis Action Taken by Nursing 02/15/23 20:03 02/15/23 20:10 02/15/23 20:23 Temperature Temperature Source Pulse Rate 66 72 Pulse Rate [Right Finger] Pulse Rate from SpO2 Sensor 66 76 Pulse Rhythm [Right Finger] Pulse Strength [Right Finger] Respiratory Rate 23 Respiratory Effort / Characteristics Respiratory Depth Respiratory Pattern Blood Pressure Blood Pressure [Right Arm] Blood Pressure Mean Blood Pressure Mean [Right Arm] Blood Pressure Position Blood Pressure Position [Right Arm] Pulse Oximetry 95 94 Oxygen Delivery Method Sepsis Recent Fever Within 48 Hours Sepsis New/Unexplained Change in Mental Status Sepsis Action Taken by Nursing 02/15/23 20:24 02/15/23 20:30 02/15/23 20:40 Temperature Temperature Source Pulse Rate 70 63 61 Pulse Rate [Right Finger] Pulse Rate from SpO2 Sensor 68 63 61 Pulse Rhythm [Right Finger] Pulse Strength [Right Finger] Respiratory Rate 17 19 19 Respiratory Effort / Characteristics Respiratory Depth Respiratory Pattern Blood Pressure 188/126 H Blood Pressure [Right Arm] Blood Pressure Mean 146 Blood Pressure Mean [Right Arm] Blood Pressure Position Blood Pressure Position [Right Arm] Pulse Oximetry 94 96 96 Oxygen Delivery Method Room Air Sepsis Recent Fever Within 48 Hours Sepsis New/Unexplained Change in Mental Status Sepsis Action Taken by Nursing 02/15/23 20:41 02/15/23 20:41 02/15/23 20:41 Temperature Temperature Source Pulse Rate 67 Pulse Rate [Right Finger] 62 Pulse Rate from SpO2 Sensor 62 Pulse Rhythm [Right Finger] Pulse Strength [Right Finger] Respiratory Rate 18 13 Respiratory Effort / Characteristics Non-Labored Respiratory Depth Normal Respiratory Pattern Blood Pressure 177/101 H Blood Pressure [Right Arm] 177/101 H Blood Pressure Mean 127 Blood Pressure Mean [Right Arm] 126 Blood Pressure Position Blood Pressure Position [Right Arm] Lying Pulse Oximetry 96 96 Oxygen Delivery Method Room Air Sepsis Recent Fever Within 48 Hours Sepsis New/Unexplained Change in Mental Status Sepsis Action Taken by Nursing 02/15/23 20:43 02/15/23 20:50 02/15/23 21:00 Temperature Temperature Source Pulse Rate 58 L 58 L 62 Pulse Rate [Right Finger] Pulse Rate from SpO2 Sensor 53 L 59 L 58 L Pulse Rhythm [Right Finger] Pulse Strength [Right Finger] Respiratory Rate 18 13 15 Respiratory Effort / Characteristics Respiratory Depth Respiratory Pattern Blood Pressure 176/93 H 170/93 H Blood Pressure [Right Arm] Blood Pressure Mean 120 118 Blood Pressure Mean [Right Arm] Blood Pressure Position Blood Pressure Position [Right Arm] Pulse Oximetry 97 97 96 Oxygen Delivery Method Room Air Sepsis Recent Fever Within 48 Hours Sepsis New/Unexplained Change in Mental Status Sepsis Action Taken by Nursing 02/15/23 21:10 Temperature Temperature Source Pulse Rate 61 Pulse Rate [Right Finger] Pulse Rate from SpO2 Sensor 61 Pulse Rhythm [Right Finger] Pulse Strength [Right Finger] Respiratory Rate 11 L Respiratory Effort / Characteristics Respiratory Depth Respiratory Pattern Blood Pressure Blood Pressure [Right Arm] Blood Pressure Mean Blood Pressure Mean [Right Arm] Blood Pressure Position Blood Pressure Position [Right Arm] Pulse Oximetry 97 Oxygen Delivery Method Sepsis Recent Fever Within 48 Hours Sepsis New/Unexplained Change in Mental Status Sepsis Action Taken by Shelter Medications Current Medication List: was personally reviewed by me Laboratory Data Attestation: I reviewed the patient's lab results. 02/15/23 17:52 02/15/23 17:52 Lab Results 02/15/23 02/15/23 02/15/23 Range/Units 17:52 17:53 18:21 WBC 5.88 (4.8-10.8) K/ul RBC 5.62 (4.70-6.10) M/uL Hgb 16.7 (14.0-18.0) g/dl Hct 48.7 (42.0-52.0) % MCV 86.7 (80.0-100.0) fL MCH 29.7 (25.0-34.0) pg MCHC 34.3 (32.0-36.0) g/dL RDW Std Deviation 40.5 (36.4-46.3) fL RDW Coeff of Kirsten 13.1 (11.5-14.5) % Plt Count 135 (130-400) K/uL MPV 10.4 (9.4-12.4) fL Immature Gran % (Auto) 0.5 % Neut % (Auto) 66.3 % Lymph % (Auto) 21.9 % Lake % (Auto) 8.2 % Eos % (Auto) 2.4 % Baso % (Auto) 0.7 % Neut # (Auto) 3.90 (1.40-6.50) K/uL Lymph # (Auto) 1.29 (1.20-3.40) K/uL Lake # (Auto) 0.48 (0.11-0.59) K/uL Eos # (Auto) 0.14 (0.00-0.50) K/uL Baso # (Auto) 0.04 (0.00-0.20) K/uL Immature Gran # (Auto) 0.03 (0.01-0.20) K/uL PT 10.9 (9.0-12.0) Seconds INR 1.0 (0.9-1.1) APTT 24.2 (21.0-31.0) Seconds PTT Ratio 0.9 Sodium 140 (136-145) mmol/L Potassium 3.8 (3.5-5.1) mmol/L Chloride 103 (98-107) mmol/L Carbon Dioxide 31 (21-32) mmol/L Anion Gap 6 (3-11) BUN 20 (6-23) mg/dl Creatinine 1.20 (0.6-1.4) mg/dl Est Cr Clr Drug Dosing 42.1 ml/min Est GFR ( Amer) 63.5 ml/min Est GFR (Non-Af Amer) 54.8 ml/min BUN/Creatinine Ratio 16.7 (10-20) Glucose 194 H (70-99(Fasting)) mg/dl POC Glucose 178 H (70-99) mg/dl Calcium 11.5 H (8.6-10.3) mg/dl Magnesium 2.2 (1.7-2.4) mg/dl Total Bilirubin 3.1 H (0.2-1.0) mg/dl AST 19 (13-39) U/L ALT 19 (7-52) U/L Alkaline Phosphatase 71 (34-104) U/L Troponin I High Sens 10.1 (0-20) pg/ml Total Protein 7.7 (6.0-8.3) gm/dl Albumin 5.0 (3.4-5.0) gm/dl Globulin 2.7 (2.5-4.0) gm/dl Albumin/Globulin Ratio 1.9 (0.9-2) Lyme Disease IgG Ab Negative (Negative) Lyme Disease IgM Ab Negative (Negative) Administered Medications Discontinued Medications Aspirin (Aspirin Chew 324 Mg) 324 mg PO NOW STA Stop: 02/15/23 20:48 Last Admin: 02/15/23 21:11 Dose: 324 mg Documented By: MARTHA Gadobutrol (Gadobutrol 65ml Vial) 7 ml IV ONCE ONE Stop: 02/16/23 00:33 Last Admin: 02/16/23 00:32 Dose: 7 ml Documented By: RAYNA Sodium Chloride (Nss) 500 mls @ 999 mls/hr IV .Q31M ONE Stop: 02/15/23 19:36 Last Infusion: 02/15/23 21:11 Dose: Infused Documented By: CLINICAL LEADER Admin: 02/15/23 20:22 Dose: 999 mls/hr Documented By: DARREL Ioversol (Optiray 320 500ml) 110 ml IV ONCE ONE Stop: 02/15/23 19:37 Last Admin: 02/15/23 19:39 Dose: 110 ml Documented By: PLW Imaging Data Radiologist's Impression: Head CT 02/15/23 17:44 Exam(s): CT HEAD Without Contrast EXAM: CT Head Without Intravenous Contrast CLINICAL HISTORY: Reason for exam: neuro deficit, acute stroke suspected. TECHNIQUE: Axial computed tomography images of the head/brain without intravenous contrast. CTDI is 67.69 mGy and DLP is 1028.61 mGy-cm. Automated exposure control was utilized for the study. A dose lowering technique was utilized adhering to the principles of ALARA. COMPARISON: CT head on 03/27/2022 FINDINGS: Brain: No acute infarct or hemorrhage identified. No extra-axial fluid collection. No mass effect or midline shift. Scattered areas of hypoattenuation in the supratentorial white matter likely represent chronic small vessel ischemic changes. Ventricles and sulci: Prominence of the ventricles and sulci is likely secondary to cerebral volume loss. Bones: Normal. No bony lesion or acute fracture. Subcutaneous tissues: Normal. Sinuses: Mild mucosal thickening in the ethmoid air cells and right frontal sinus. Mastoid air cells: Normal. Orbits: Bilateral lens implants. Other: Atherosclerotic calcifications in the intracranial vasculature. IMPRESSION: 1. No acute intracranial abnormality. If there is persistent concern for acute infarct, consider further evaluation with MRI. 2. Chronic small vessel ischemic changes and cerebral volume loss. Electronically signed by: Juventino Gutierrez M.D. 02/15/23 20:30 PM Head CTA 02/15/23 17:44 Exam(s): CTA HEAD With Contrast IV Amt: 110 ml opti 320 EXAM: CT Angiography Head With Intravenous Contrast CLINICAL HISTORY: Reason for exam: neuro deficit, acute stroke suspected. TECHNIQUE: Axial computed tomographic angiography images of the head with intravenous contrast. CTDI is 67.69 mGy and DLP is 1028.61 mGy-cm. Automated exposure control was utilized for the study. A dose lowering technique was utilized adhering to the principles of ALARA. MIP reconstructed images were created and reviewed. CONTRAST: Patient received 110 ml opti 320 of IV contrast COMPARISON: None FINDINGS: Right internal carotid artery: Atherosclerotic calcifications in the distal right ICA. No significant stenosis. No aneurysm. Right anterior cerebral artery: Unremarkable. No occlusion or significant stenosis. No aneurysm. Right middle cerebral artery: Unremarkable. No occlusion or significant stenosis. No aneurysm. Right posterior cerebral artery: Unremarkable. No occlusion or significant stenosis. No aneurysm. Right vertebral artery: Occluded right vertebral artery, age indeterminate without prior exams available for comparison. Short segment of reconstituted flow in a portion of the V4 segment of the right vertebral artery which occludes again distally. Left internal carotid artery: Atherosclerotic calcifications in the distal left ICA. No significant stenosis. No aneurysm. Left anterior cerebral artery: Unremarkable. No occlusion or significant stenosis. No aneurysm. Left middle cerebral artery: Unremarkable. No occlusion or significant stenosis. No aneurysm. Left posterior cerebral artery: Unremarkable. No occlusion or significant stenosis. No aneurysm. Left vertebral artery: Unremarkable as visualized. Basilar artery: Unremarkable. No occlusion or significant stenosis. No aneurysm. IMPRESSION: Occluded right vertebral artery, age indeterminate without prior exams available for comparison. Short segment of reconstituted flow in a portion of the V4 segment of the right vertebral artery which occludes again distally. Electronically signed by: Juventino Gutierrez M.D. 02/15/23 20:37 PM Neck CTA 02/15/23 17:44 CR Exam(s): CTA NECK With Contrast IV Amt: 110 ml opti 320 EXAM: CT Angiography Neck With Intravenous Contrast CLINICAL HISTORY: Reason for exam: neuro deficit, acute stroke suspected. TECHNIQUE: Routine carotid CT angiography protocol was performed with intravenous contrast. NASCET criteria using the distal ICAs for comparison were used for evaluation of stenoses. CTDI is 67.69 mGy and DLP is 1028.61 mGy-cm. Automated exposure control was utilized for the study. A dose lowering technique was utilized adhering to the principles of ALARA. MIP reconstructed images were created and reviewed. CONTRAST: Patient received 110 ml opti 320 of IV contrast COMPARISON: None FINDINGS: VASCULATURE: Right common carotid artery: Unremarkable. No occlusion or significant stenosis. No dissection. Right internal carotid artery: Mild atherosclerotic calcification in the right carotid bulb and proximal right ICA. No significant stenosis. No dissection. Right external carotid artery: Unremarkable. No occlusion. Right vertebral artery: Occluded right vertebral artery, age indeterminate without prior exams available for comparison. Some reconstituted flow is seen within the right vertebral artery at the C2-C4 level. Left common carotid artery: Unremarkable. No occlusion or significant stenosis. No dissection. Left internal carotid artery: Mild atherosclerotic calcification in the left carotid bulb and proximal left ICA. No significant stenosis. No dissection. Left external carotid artery: Unremarkable. No occlusion. Left vertebral artery: Unremarkable. No occlusion or significant stenosis. No dissection. NECK: Bones/joints: Unremarkable. No acute fracture. Soft tissues: Unremarkable. Lung apices: Clear. CAROTID STENOSIS REFERENCE USING NASCET CRITERIA: % ICA stenosis = (1 - narrowest ICA diameter/diameter of distal cervical ICA) x 100. Mild - <50% stenosis. Moderate - 50-69% stenosis. Severe - 70-94% stenosis. Near occlusion - 95-99% stenosis. Occluded - 100% stenosis. IMPRESSION: Occluded right vertebral artery, age indeterminate without prior exams available for comparison. Some reconstituted flow is seen within the right vertebral artery at the C2-C4 level. Communications: Call Doctor Acute arterial occlusion/ critical stenosis Electronically signed by: Juventino Gutierrez M.D. 02/15/23 20:35 PM Discharge Plan Visit Data Chief Complaint: TIA Symptoms Stated Complaint: LIGHTHEADED, CONFUSED, BLURED VISON ED Provider: Mina Roberts Discharge Problem: Dizziness, Blurry vision, Ambulatory dysfunction, Occlusion of right vertebral artery Patient Disposition: Admitted As Inpatient Condition: Fair Discharge Instructions Interventions: ED Discharge Assessment Last Done: 02/15/23 23:32
[2023-02-15] MEDS ORDERED: OPTIRAY 320 500ml IV ONE (19:36)
[2023-02-15 19:58] LABS: Lyme Ab IgG w/WB Rflx Negative (Negative); Lyme Ab IgM w/WB Rflx Negative (Negative)
--- NOTE | 2023-02-15 20:31 | CT Scan Report ---
Exam(s): CT HEAD Without Contrast EXAM: CT Head Without Intravenous Contrast CLINICAL HISTORY: Reason for exam: neuro deficit, acute stroke suspected. TECHNIQUE: Axial computed tomography images of the head/brain without intravenous contrast. CTDI is 67.69 mGy and DLP is 1028.61 mGy-cm. Automated exposure control was utilized for the study. A dose lowering technique was utilized adhering to the principles of ALARA. COMPARISON: CT head on 03/27/2022 FINDINGS: Brain: No acute infarct or hemorrhage identified. No extra-axial fluid collection. No mass effect or midline shift. Scattered areas of hypoattenuation in the supratentorial white matter likely represent chronic small vessel ischemic changes. Ventricles and sulci: Prominence of the ventricles and sulci is likely secondary to cerebral volume loss. Bones: Normal. No bony lesion or acute fracture. Subcutaneous tissues: Normal. Sinuses: Mild mucosal thickening in the ethmoid air cells and right frontal sinus. Mastoid air cells: Normal. Orbits: Bilateral lens implants. Other: Atherosclerotic calcifications in the intracranial vasculature. IMPRESSION: 1. No acute intracranial abnormality. If there is persistent concern for acute infarct, consider further evaluation with MRI. 2. Chronic small vessel ischemic changes and cerebral volume loss. Electronically signed by: Juventino Gutierrez M.D. 02/15/23 20:30 PM
--- NOTE | 2023-02-15 20:36 | CT Scan Report ---
Exam(s): CTA NECK With Contrast IV Amt: 110 ml opti 320 EXAM: CT Angiography Neck With Intravenous Contrast CLINICAL HISTORY: Reason for exam: neuro deficit, acute stroke suspected. TECHNIQUE: Routine carotid CT angiography protocol was performed with intravenous contrast. NASCET criteria using the distal ICAs for comparison were used for evaluation of stenoses. CTDI is 67.69 mGy and DLP is 1028.61 mGy-cm. Automated exposure control was utilized for the study. A dose lowering technique was utilized adhering to the principles of ALARA. MIP reconstructed images were created and reviewed. CONTRAST: Patient received 110 ml opti 320 of IV contrast COMPARISON: None FINDINGS: VASCULATURE: Right common carotid artery: Unremarkable. No occlusion or significant stenosis. No dissection. Right internal carotid artery: Mild atherosclerotic calcification in the right carotid bulb and proximal right ICA. No significant stenosis. No dissection. Right external carotid artery: Unremarkable. No occlusion. Right vertebral artery: Occluded right vertebral artery, age indeterminate without prior exams available for comparison. Some reconstituted flow is seen within the right vertebral artery at the C2-C4 level. Left common carotid artery: Unremarkable. No occlusion or significant stenosis. No dissection. Left internal carotid artery: Mild atherosclerotic calcification in the left carotid bulb and proximal left ICA. No significant stenosis. No dissection. Left external carotid artery: Unremarkable. No occlusion. Left vertebral artery: Unremarkable. No occlusion or significant stenosis. No dissection. NECK: Bones/joints: Unremarkable. No acute fracture. Soft tissues: Unremarkable. Lung apices: Clear. CAROTID STENOSIS REFERENCE USING NASCET CRITERIA: % ICA stenosis = (1 - narrowest ICA diameter/diameter of distal cervical ICA) x 100. Mild - <50% stenosis. Moderate - 50-69% stenosis. Severe - 70-94% stenosis. Near occlusion - 95-99% stenosis. Occluded - 100% stenosis. IMPRESSION: Occluded right vertebral artery, age indeterminate without prior exams available for comparison. Some reconstituted flow is seen within the right vertebral artery at the C2-C4 level. Communications: Call Doctor Acute arterial occlusion/ critical stenosis Electronically signed by: Juventino Gutierrez M.D. 02/15/23 20:35 PM
--- NOTE | 2023-02-15 20:39 | CT Scan Report ---
Exam(s): CTA HEAD With Contrast IV Amt: 110 ml opti 320 EXAM: CT Angiography Head With Intravenous Contrast CLINICAL HISTORY: Reason for exam: neuro deficit, acute stroke suspected. TECHNIQUE: Axial computed tomographic angiography images of the head with intravenous contrast. CTDI is 67.69 mGy and DLP is 1028.61 mGy-cm. Automated exposure control was utilized for the study. A dose lowering technique was utilized adhering to the principles of ALARA. MIP reconstructed images were created and reviewed. CONTRAST: Patient received 110 ml opti 320 of IV contrast COMPARISON: None FINDINGS: Right internal carotid artery: Atherosclerotic calcifications in the distal right ICA. No significant stenosis. No aneurysm. Right anterior cerebral artery: Unremarkable. No occlusion or significant stenosis. No aneurysm. Right middle cerebral artery: Unremarkable. No occlusion or significant stenosis. No aneurysm. Right posterior cerebral artery: Unremarkable. No occlusion or significant stenosis. No aneurysm. Right vertebral artery: Occluded right vertebral artery, age indeterminate without prior exams available for comparison. Short segment of reconstituted flow in a portion of the V4 segment of the right vertebral artery which occludes again distally. Left internal carotid artery: Atherosclerotic calcifications in the distal left ICA. No significant stenosis. No aneurysm. Left anterior cerebral artery: Unremarkable. No occlusion or significant stenosis. No aneurysm. Left middle cerebral artery: Unremarkable. No occlusion or significant stenosis. No aneurysm. Left posterior cerebral artery: Unremarkable. No occlusion or significant stenosis. No aneurysm. Left vertebral artery: Unremarkable as visualized. Basilar artery: Unremarkable. No occlusion or significant stenosis. No aneurysm. IMPRESSION: Occluded right vertebral artery, age indeterminate without prior exams available for comparison. Short segment of reconstituted flow in a portion of the V4 segment of the right vertebral artery which occludes again distally. Electronically signed by: Juventino Gutierrez M.D. 02/15/23 20:37 PM
[2023-02-15] MEDS ORDERED: ASPIRIN CHEW 324 MG PO STA (20:47)
[2023-02-15 20:58] LABS: Appearance Urine Clear (Clear); Bilirubin Urine Negative (Negative); Blood Urine Negative (Negative); Color Urine Yellow; Glucose Urine UA Negative (Negative); Ketones Urine Negative (Negative); Leukocyte Esterase Urine Negative (Negative); Nitrite Urine Negative (Negative); Protein Urine Negative (Negative); Specific Gravity Urine 1.029 (1.000-1.030); Urobilinogen Urine Negative (Negative); pH Urine 7.5 (4.5-7.5)
--- NOTE | 2023-02-15 21:36 | History & Physical Report ---
Date of Service February 15, 2023 Assessment & Plan (1) Dizziness: Plan: 87yo male with two days of dizziness, gait instability, visual disturbance. 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 Could possibly be contributing to patient's symptoms. He has been given ASA 324mg. -Admit to medical with telemetry -Neuro checks and NIHSS -Check MRI Brain -Check 2D echo -Neurology consultation appreciated -Last QhuU0B=1.2 on 12/13/22 -Last lipid profile 05/09/22 - total vvficmrpanb=966, HDL=41, LDL=59, VLDL=2- and TG=99 -Continue ASA 81mg po daily -Continue Atorvastatin 40mg po daily -PT/OT evaluation appreciated (2) Hypertension: Plan: Blood pressure elevated at present -Will hold anti-hypertensives for now pending MRI study to allow for permissive hypertension -Patient is on Amlodipine, Isosorbide mononitrate, Lisinopril-HCTZ (3) Coronary artery disease: Plan: Chronic. Stable. Patient denies chest pain -Continue ASA and Atorvastatin -Holding anti-hypertensives for now (4) Diabetes mellitus, type II: Plan: Patient on Lantus 35u qHS -Lantus 15u BID -ISS -Goal blood sugar 110 - 180 F/E/N - Saline lock. Electrolytes WNL. Heart healthy/CC diet as tolerated Ppx - Low risk for DVT Code - Full per discussion with patient Dispo - Admit to medical History of Present Illness Chief Complaint: imbalance, blurry vision Primary Care Provider: Javier Anguiano, Ahmadi Walk is an 87yo male with history of CAD s/p CABG in 2005, DM, HTN, HLP and CKD presenting from home with complaint of imbalance, blurry vision and delay in speech. Yesterday patient did not feel well - he felt somewhat dizzy and lightheaded. Throughout today he had episodes of blurry vision "like a glare" as well as imbalance and some delay with word finding. He also developed a headache this evening. Patient was seen by his PCP and instructed to come to the ER for further workup. He denies fever, chills, chest pain, cough, SOB, abdominal pain, nausea, vomiting, diarrhea. He has chronic numbness in his right hand from prior carpal-tunnel release Denies falls No difficulty with swallowing In the ER he is afebrile, hypertensive, adequate oxygenation on room air ER Course: ASA Allergies Allergy/AdvReac Type Severity Reaction Status Date / Time No Known Allergies Allergy Verified 02/15/23 19:35 Home Medications Medication Instructions Recorded Confirmed Type lancets (Microlet Lancet) #50 ea 10/28/18 02/15/23 History Contour Next Test Strips (blood #300 ea 12/08/20 02/15/23 Rx sugar diagnostic) multivitamin (Multiple Vitamins 1 tab PO DAILY 05/24/21 02/15/23 History tablet) aspirin 81 mg capsule 81 mg PO DAILY #30 caps 03/27/22 02/15/23 Rx isosorbide mononitrate 30 mg 30 mg PO DAILY #90 tabs 04/18/22 02/15/23 Rx tablet,extended release 24 hr atorvastatin 40 mg tablet 40 mg PO QAM #90 tabs 07/07/22 02/15/23 Rx amlodipine 10 mg tablet 10 mg PO QAM #90 tabs 08/02/22 02/15/23 Rx lisinopril 20 1 tab PO QAM #180 tabs 08/11/22 02/15/23 Rx mg-hydrochlorothiazide 12.5 mg tablet BD Ultra-Fine Danielle Pen Needle 32 #400 ea 11/20/22 02/15/23 Rx gauge x 5/32" (pen needle, diabetic) nitroglycerin 0.4 mg sublingual 0.4 mg sublingual Q5M PRN dyspnea 12/12/22 02/15/23 Rx tablet (Nitrostat) #25 tabs insulin glargine 100 unit/mL (3 35 unit (0.35 mL) subcut QPM #45 mL 12/25/22 02/15/23 Rx mL) subcutaneous pen (Basaglar KwikPen U-100 Insulin) insulin aspart U-100 100 unit/mL 0 unit subcut DAILY 02/15/23 02/15/23 History (3 mL) subcutaneous pen (Novolog FlexPen U-100 Insulin aspart) potassium chloride 10 mEq 10 meq PO DAILY 02/15/23 02/15/23 History capsule,extended release Past Med/Surg History Medical History Acute kidney injury superimposed on CKD Right hand paresthesia Cataracts, bilateral History of COVID-19 Snores REFUSED SLEEP STUDY Diabetes MANZANITA (hard of hearing) Low back pain Thyroglossal duct cyst Seborrheic keratosis Chronic sinusitis Anemia Dysphagia DENIES Calcaneal spur Basal cell carcinoma HX Diabetic nephropathy DENIES Coronary artery disease . Followed by cardiology. Hyperlipidemia Chronic kidney disease AGE APPROPRIATE KIDNEY DISEASE PER DAUGHTER Hypertension Surgical History History of squamous cell carcinoma excision 08/08/22 History of left cataract surgery History of thyroid surgery CYST REMOVED, NON CANCEROUS 50+ YR AGO History of carpal tunnel release H/O colonoscopy No further screening recommended, 03/2014 Hx of CABG OPEN HEART SURGERY, BLOCKAGES 2006 AT [place] Hx of total knee arthroplasty Left, 2002 Family History Unknown No problems noted. Father Prostate cancer Alcohol abuse Mother Hypertension Stroke Brother Atrial fibrillation Heart disease Grandmother Diabetes Stroke Uncle Diabetes Denies family history of Ovarian cancer Myocardial infarction Breast cancer Lung cancer Colorectal cancer Social History Smoking Status: Never smoker Second Hand Exposure: No; Do You Dip or Chew Tobacco: No; Hx Alcohol Use: No Hx Substance Use: No Preferred Language: Turkmen Communication Ability: Effective Communication Ability Comment: MANZANITA Visual Impairment: Limited Hearing Ability: Use of Hearing Aid Music Publisher Required: No Beliefs That Will Affect Care: None marital status: Current Living Situation: Spouse Current Living Situation Comment: correction apartments current occupational status: 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 How many Children do You have: 3 Feels Safe at Home: Yes Childhood Exposure to Second-Hand Smoke: No caffeine: Yes Dental Care, Regularly: No Physical Activity Frequency: 1-2 Times per Week Seatbelt Use: always Sunscreen Use: No Assistive Devices: Glasses and Walker Review of Systems Review of Systems: All systems reviewed & are unremarkable except as noted in HPI & below Physical Exam Physical Exam: General: patient resting comfortably, NAD, non-toxic in appearance, AA&O x 4 Skin: warm, dry, intact, no rashes or lesions HEENT: NC/AT, PERRL, EOMI, anicteric sclera, conjunctiva without injection, external ear normal to inspection and nontender, nares patent, moist mucus mem branes, dentition intact, no oropharyngeal lesions, neck supple, trachea midline, no LAD, no thyromegaly, no JVD Heart: +S1/S2, regular, no m/r/g Lungs: equal air entry bilaterally, no rales/rhonchi/wheezes Abd: +BS, soft, NT/ND, no masses/organomegaly/ascites Ext: warm, 2+ pulses in UE/LE bilaterally, no clubbing/cyanosis or edema Neuro: AA&O 3, speech clear and appropriate, CN intact II - XII, sensation to light touch intact, MS 5/5 in UE/LE bilaterally, mild dysmetria noted with RUE on finger-to nose, gait stable Results & Data Results & Data Vital Signs (Past 12 Hours) Vital Signs Temp Pulse Pulse Resp BP BP Pulse Ox 02/15/23 21:10 61 11 L 97 02/15/23 21:00 62 15 170/93 H 96 02/15/23 20:50 58 L 13 97 02/15/23 20:43 58 L 18 176/93 H 97 02/15/23 20:41 67 13 96 02/15/23 20:41 177/101 H 02/15/23 20:41 62 18 177/101 H 96 02/15/23 20:40 61 19 96 02/15/23 20:30 63 19 96 02/15/23 20:24 70 17 188/126 H 94 02/15/23 20:23 94 02/15/23 20:10 72 23 95 02/15/23 20:03 66 02/15/23 20:00 60 17 96 02/15/23 19:50 66 20 96 02/15/23 19:46 76 16 115/83 93 02/15/23 19:20 55 L 12 96 02/15/23 19:10 58 L 13 95 02/15/23 19:00 56 L 17 95 02/15/23 18:50 58 L 17 97 02/15/23 18:40 58 L 15 94 02/15/23 18:30 57 L 17 95 02/15/23 18:25 60 21 165/102 H 97 02/15/23 18:23 59 L 18 02/15/23 17:43 36.7 C 65 20 183/99 H 95 O2 Del Method 02/15/23 21:10 02/15/23 21:00 Room Air 02/15/23 20:50 02/15/23 20:43 02/15/23 20:41 02/15/23 20:41 02/15/23 20:41 Room Air 02/15/23 20:40 02/15/23 20:30 Room Air 02/15/23 20:24 02/15/23 20:23 02/15/23 20:10 02/15/23 20:03 02/15/23 20:00 Room Air 02/15/23 19:50 02/15/23 19:46 Room Air 02/15/23 19:20 02/15/23 19:10 02/15/23 19:00 Room Air 02/15/23 18:50 02/15/23 18:40 Room Air 02/15/23 18:30 Room Air 02/15/23 18:25 Room Air 02/15/23 18:23 02/15/23 17:43 Laboratory Results Laboratory Results WBC 5.88 K/ul (4.8-10.8) 02/15/23 17:52 RBC 5.62 M/uL (4.70-6.10) 02/15/23 17:52 Hgb 16.7 g/dl (14.0-18.0) 02/15/23 17:52 Hct 48.7 % (42.0-52.0) 02/15/23 17:52 MCV 86.7 fL (80.0-100.0) 02/15/23 17:52 MCH 29.7 pg (25.0-34.0) 02/15/23 17:52 MCHC 34.3 g/dL (32.0-36.0) 02/15/23 17:52 RDW Std Deviation 40.5 fL (36.4-46.3) 02/15/23 17:52 RDW Coeff of Kirsten 13.1 % (11.5-14.5) 02/15/23 17:52 Plt Count 135 K/uL (130-400) 02/15/23 17:52 MPV 10.4 fL (9.4-12.4) 02/15/23 17:52 Immature Gran % (Auto) 0.5 % 02/15/23 17:52 Neut % (Auto) 66.3 % 02/15/23 17:52 Lymph % (Auto) 21.9 % 02/15/23 17:52 [place] % (Auto) 8.2 % 02/15/23 17:52 Eos % (Auto) 2.4 % 02/15/23 17:52 Baso % (Auto) 0.7 % 02/15/23 17:52 Neut # (Auto) 3.90 K/uL (1.40-6.50) 02/15/23 17:52 Lymph # (Auto) 1.29 K/uL (1.20-3.40) 02/15/23 17:52 [place] # (Auto) 0.48 K/uL (0.11-0.59) 02/15/23 17:52 Eos # (Auto) 0.14 K/uL (0.00-0.50) 02/15/23 17:52 Baso # (Auto) 0.04 K/uL (0.00-0.20) 02/15/23 17:52 Immature Gran # (Auto) 0.03 K/uL (0.01-0.20) 02/15/23 17:52 PT 10.9 Seconds (9.0-12.0) 02/15/23 17:52 INR 1.0 (0.9-1.1) 02/15/23 17:52 APTT 24.2 Seconds (21.0-31.0) 02/15/23 17:52 PTT Ratio 0.9 02/15/23 17:52 Sodium 140 mmol/L (136-145) 02/15/23 17:52 Potassium 3.8 mmol/L (3.5-5.1) 02/15/23 17:52 Chloride 103 mmol/L (98-107) 02/15/23 17:52 Carbon Dioxide 31 mmol/L (21-32) 02/15/23 17:52 Anion Gap 6 (3-11) 02/15/23 17:52 BUN 20 mg/dl (6-23) 02/15/23 17:52 Creatinine 1.20 mg/dl (0.6-1.4) 02/15/23 17:52 Est Cr Clr Drug Dosing 42.1 ml/min 02/15/23 17:52 Est GFR ( Amer) 63.5 ml/min 02/15/23 17:52 Est GFR (Non-Af Amer) 54.8 ml/min 02/15/23 17:52 BUN/Creatinine Ratio 16.7 (10-20) 02/15/23 17:52 Glucose 194 mg/dl (70-99(Fasting)) H 02/15/23 17:52 POC Glucose 178 mg/dl (70-99) H 02/15/23 18:21 Calcium 11.5 mg/dl (8.6-10.3) H 02/15/23 17:52 Magnesium 2.2 mg/dl (1.7-2.4) 02/15/23 17:52 Total Bilirubin 3.1 mg/dl (0.2-1.0) H 02/15/23 17:52 AST 19 U/L (13-39) 02/15/23 17:52 ALT 19 U/L (7-52) 02/15/23 17:52 Alkaline Phosphatase 71 U/L (34-104) 02/15/23 17:52 Troponin I High Sens 10.1 pg/ml (0-20) 02/15/23 17:52 Total Protein 7.7 gm/dl (6.0-8.3) 02/15/23 17:52 Albumin 5.0 gm/dl (3.4-5.0) 02/15/23 17:52 Globulin 2.7 gm/dl (2.5-4.0) 02/15/23 17:52 Albumin/Globulin Ratio 1.9 (0.9-2) 02/15/23 17:52 Urine Color Yellow 02/15/23 Unknown Urine Appearance Clear (Clear) 02/15/23 Unknown Urine pH 7.5 (4.5-7.5) 02/15/23 Unknown Ur Specific Amma 1.029 (1.000-1.030) 02/15/23 Unknown Urine Protein Negative (Negative) 02/15/23 Unknown Urine Glucose (UA) Negative (Negative) 02/15/23 Unknown Urine Ketones Negative (Negative) 02/15/23 Unknown Urine Blood Negative (Negative) 02/15/23 Unknown Urine Nitrite Negative (Negative) 02/15/23 Unknown Urine Bilirubin Negative (Negative) 02/15/23 Unknown Urine Urobilinogen Negative (Negative) 02/15/23 Unknown Ur Leukocyte Esterase Negative (Negative) 02/15/23 Unknown Adenovirus (PCR) Not Detected (NotDetected) 02/15/23 Unknown B. pertussis DNA (PCR) Not Detected (NotDetected) 02/15/23 Unknown B.parapertussis DNA PCR Not Detected (NotDetected) 02/15/23 Unknown Lyme Disease IgG Ab Negative (Negative) 02/15/23 17:53 Lyme Disease IgM Ab Negative (Negative) 02/15/23 17:53 C. pneumoniae DNA (PCR) Not Detected (NotDetected) 02/15/23 Unknown Coronavirus OC43 (PCR) Not Detected (NotDetected) 02/15/23 Unknown Coronavirus HKU1 (PCR) Not Detected (NotDetected) 02/15/23 Unknown Coronavirus 229E (PCR) Not Detected (NotDetected) 02/15/23 Unknown SARS-CoV-2 (PCR) Not Detected (NotDetected) 02/15/23 Unknown Coronavirus NL63 (PCR) Not Detected (NotDetected) 02/15/23 Unknown Human Metapneumovir PCR Not Detected (NotDetected) 02/15/23 Unknown Influenza Type A (PCR) Not Detected (NotDetected) 02/15/23 Unknown Influenza Type B (PCR) Not Detected (NotDetected) 02/15/23 Unknown M. pneumoniae (PCR) Not Detected (NotDetected) 02/15/23 Unknown Parainfluenza 1 (PCR) Not Detected (NotDetected) 02/15/23 Unknown Parainfluenza 2 (PCR) Not Detected (NotDetected) 02/15/23 Unknown Parainfluenza 3 (PCR) Not Detected (NotDetected) 02/15/23 Unknown Parainfluenza 4 (PCR) Not Detected (NotDetected) 02/15/23 Unknown RSV (PCR) Not Detected (NotDetected) 02/15/23 Unknown Entero/Rhino (PCR) Not Detected (NotDetected) 02/15/[address] 02/15/23 17:44 Exam(s): CT HEAD Without Contrast EXAM: CT Head Without Intravenous Contrast CLINICAL HISTORY: Reason for exam: neuro deficit, acute stroke suspected. TECHNIQUE: Axial computed tomography images of the head/brain without intravenous contrast. CTDI is 67.69 mGy and DLP is 1028.61 mGy-cm. Automated exposure control was utilized for the study. A dose lowering technique was utilized adhering to the principles of ALARA. COMPARISON: CT head on 03/27/2022 FINDINGS: Brain: No acute infarct or hemorrhage identified. No extra-axial fluid collection. No mass effect or midline shift. Scattered areas of hypoattenuation in the supratentorial white matter likely represent chronic small vessel ischemic changes. Ventricles and sulci: Prominence of the ventricles and sulci is likely secondary to cerebral volume loss. Bones: Normal. No bony lesion or acute fracture. Subcutaneous tissues: Normal. Sinuses: Mild mucosal thickening in the ethmoid air cells and right frontal sinus. Mastoid air cells: Normal. Orbits: Bilateral lens implants. Other: Atherosclerotic calcifications in the intracranial vasculature. IMPRESSION: 1. No acute intracranial abnormality. If there is persistent concern for acute infarct, consider further evaluation with MRI. 2. Chronic small vessel ischemic changes and cerebral volume loss. Electronically signed by: Juventino Gutierrez M.D. 02/15/23 20:30 PM Head CTA 02/15/23 17:44 Exam(s): CTA HEAD With Contrast IV Amt: 110 ml opti 320 EXAM: CT Angiography Head With Intravenous Contrast CLINICAL HISTORY: Reason for exam: neuro deficit, acute stroke suspected. TECHNIQUE: Axial computed tomographic angiography images of the head with intravenous contrast. CTDI is 67.69 mGy and DLP is 1028.61 mGy-cm. Automated exposure control was utilized for the study. A dose lowering technique was utilized adhering to the principles of ALARA. MIP reconstructed images were created and reviewed. CONTRAST: Patient received 110 ml opti 320 of IV contrast COMPARISON: None FINDINGS: Right internal carotid artery: Atherosclerotic calcifications in the distal right ICA. No significant stenosis. No aneurysm. Right anterior cerebral artery: Unremarkable. No occlusion or significant stenosis. No aneurysm. Right middle cerebral artery: Unremarkable. No occlusion or significant stenosis. No aneurysm. Right posterior cerebral artery: Unremarkable. No occlusion or significant stenosis. No aneurysm. Right vertebral artery: Occluded right vertebral artery, age indeterminate without prior exams available for comparison. Short segment of reconstituted flow in a portion of the V4 segment of the right vertebral artery which occludes again distally. Left internal carotid artery: Atherosclerotic calcifications in the distal left ICA. No significant stenosis. No aneurysm. Left anterior cerebral artery: Unremarkable. No occlusion or significant stenosis. No aneurysm. Left middle cerebral artery: Unremarkable. No occlusion or significant stenosis. No aneurysm. Left posterior cerebral artery: Unremarkable. No occlusion or significant stenosis. No aneurysm. Left vertebral artery: Unremarkable as visualized. Basilar artery: Unremarkable. No occlusion or significant stenosis. No aneurysm. IMPRESSION: Occluded right vertebral artery, age indeterminate without prior exams available for comparison. Short segment of reconstituted flow in a portion of the V4 segment of the right vertebral artery which occludes again distally. Electronically signed by: Juventino Gutierrez M.D. 02/15/23 20:37 PM Neck CTA 02/15/23 17:44 CR Exam(s): CTA NECK With Contrast IV Amt: 110 ml opti 320 EXAM: CT Angiography Neck With Intravenous Contrast CLINICAL HISTORY: Reason for exam: neuro deficit, acute stroke suspected. TECHNIQUE: Routine carotid CT angiography protocol was performed with intravenous contrast. NASCET criteria using the distal ICAs for comparison were used for evaluation of stenoses. CTDI is 67.69 mGy and DLP is 1028.61 mGy-cm. Automated exposure control was utilized for the study. A dose lowering technique was utilized adhering to the principles of ALARA. MIP reconstructed images were created and reviewed. CONTRAST: Patient received 110 ml opti 320 of IV contrast COMPARISON: None FINDINGS: VASCULATURE: Right common carotid artery: Unremarkable. No occlusion or significant stenosis. No dissection. Right internal carotid artery: Mild atherosclerotic calcification in the right carotid bulb and proximal right ICA. No significant stenosis. No dissection. Right external carotid artery: Unremarkable. No occlusion. Right vertebral artery: Occluded right vertebral artery, age indeterminate without prior exams available for comparison. Some reconstituted flow is seen within the right vertebral artery at the C2-C4 level. Left common carotid artery: Unremarkable. No occlusion or significant stenosis. No dissection. Left internal carotid artery: Mild atherosclerotic calcification in the left carotid bulb and proximal left ICA. No significant stenosis. No dissection. Left external carotid artery: Unremarkable. No occlusion. Left vertebral artery: Unremarkable. No occlusion or significant stenosis. No dissection. NECK: Bones/joints: Unremarkable. No acute fracture. Soft tissues: Unremarkable. Lung apices: Clear. CAROTID STENOSIS REFERENCE USING NASCET CRITERIA: % ICA stenosis = (1 - narrowest ICA diameter/diameter of distal cervical ICA) x 100. Mild - <50% stenosis. Moderate - 50-69% stenosis. Severe - 70-94% stenosis. Near occlusion - 95-99% stenosis. Occluded - 100% stenosis. IMPRESSION: Occluded right vertebral artery, age indeterminate without prior exams available for comparison. Some reconstituted flow is seen within the right vertebral artery at the C2-C4 level. Communications: Call Doctor Acute arterial occlusion/ critical stenosis Electronically signed by: Juventino Gutierrez M.D. 02/15/23 20:35 PM Diagnostic Findings CXR - per my interpretation - no edema or infiltrate. Sternotomy wires in place ECG Additional Comments: EKG - per my interpretation - study shows NSR at 63, normal axis, LN=547, MZK=635, JOq=473, no acute ischemic chagnes PG Care Time/CCT Total # of Minutes Spent Total Time Spent with Patient: Total time spent is greater than 50% in coordination of care (as documented) at patient's floor/unit and/or counseling patient: Coding Level of Care Code 36711 INT INP/OBS CARE 2/55MIN Diagnoses Dizziness R42 Hypertension I10 Coronary artery disease I25.10 Diabetes mellitus, type II E11.9
[2023-02-15 21:38] LABS: Adenovirus PCR Not Detected (NotDetected); Bordetella parapertussis PCR Not Detected (NotDetected); Bordetella pertussis PCR Not Detected (NotDetected); Chlamydia pneumoniae PCR Not Detected (NotDetected); Coronavirus 229E PCR Not Detected (NotDetected); Coronavirus CoV-2 (COVID19)PCR Not Detected (NotDetected); Coronavirus HKU1 PCR Not Detected (NotDetected); Coronavirus NL63 PCR Not Detected (NotDetected); Coronavirus OC43PCR Not Detected (NotDetected); Human Metapneumovirus PCR Not Detected (NotDetected); Influenza A PCR Not Detected (NotDetected); Influenza B PCR Not Detected (NotDetected); Mycoplasma pneumoniae PCR Not Detected (NotDetected); Parainfluenza Virus 1 PCR Not Detected (NotDetected); Parainfluenza Virus 2 PCR Not Detected (NotDetected); Parainfluenza Virus 3 PCR Not Detected (NotDetected); Parainfluenza Virus 4 PCR Not Detected (NotDetected); Respiratory Syncytial VirusPCR Not Detected (NotDetected); Rhinovirus/Enterovirus PCR Not Detected (NotDetected)
[2023-02-15] MEDS ORDERED: ONDANSETRON INJ 2 MG/ML 2 ML VIAL IV PRN (23:32)
[2023-02-15] MEDS ORDERED: PHARMACIST DISCHARGE MED REC CONSULT PRN (23:32)
[2023-02-15] MEDS ORDERED: GLUCOSE 10 TAB/TUBE PO PRN (23:32)
[2023-02-15] MEDS ORDERED: ACETAMINOPHEN 325 MG TAB PO PRN (23:32)
[2023-02-15] MEDS ORDERED: GLUCAGON FOR INJ 1 MG VIAL SQ PRN (23:32)
[2023-02-15] MEDS ORDERED: GLUCOSE 40% GEL 15 GM TUBE PO PRN (23:32)
[2023-02-15] MEDS ORDERED: DEXTROSE 50% 50 ML SYRINGE IV PRN (23:32)
[2023-02-15] MEDS ORDERED: CARBOHYDRATES FOR HYPOGLYCEMIA PO PRN (23:32)
[2023-02-16] MEDS ORDERED: GADOBUTROL 65ML VIAL IV ONE (00:32)
--- NOTE | 2023-02-16 03:08 | Magnetic Resonance Report ---
Exam(s): MRI HEAD W/WO Contrast IV Amt: 7cc gadavist EXAM: MR Head Without and With Intravenous Contrast CLINICAL HISTORY: Reason for exam: Possible stroke. TECHNIQUE: Magnetic resonance images of the head/brain without and with intravenous contrast in multiple planes. CONTRAST: Patient received 7cc gadavist of IV contrast COMPARISON: CT head on 02/15/2023 FINDINGS: Brain: Mild chronic small vessel ischemic disease. No hemorrhage. No restricted diffusion to suggest acute infarct. No abnormal parenchymal enhancement. Ventricles: Prominence of the ventricles and sulci is again secondary to cerebral volume loss. Bones/joints: Unremarkable. No acute fracture. Sinuses: Polyp versus mucous retention cyst in the left maxillary sinus. No acute sinusitis. Mastoid air cells: Fluid within right greater than left mastoid air cells. Orbits: Bilateral lens implants. IMPRESSION: 1. No restricted diffusion to suggest acute infarct. 2. No abnormal parenchymal enhancement. Electronically signed by: Juventino Gutierrez M.D. 02/16/23 03:07 AM
[2023-02-16 06:48] LABS: Basophils # (auto) 0.04 K/uL (0.00-0.20); Basophils % (auto) 0.8 %; Eosinophils # (auto) 0.12 K/uL (0.00-0.50); Eosinophils % (auto) 2.3 %; Hematocrit (blood only) 44.1 % (42.0-52.0); Immature Granulocytes # (auto) 0.04 K/uL (0.01-0.20); Immature Granulocytes % (auto) 0.8 %; Lymphocytes # (auto) 1.01 K/uL (1.20-3.40); Lymphocytes % (auto) 19.2 %; Mean Corpuscular Hemoglobin 29.9 pg (25.0-34.0); Mean Corpuscular Volume 87.8 fL (80.0-100.0); Mean Platelet Volume 10.4 fL (9.4-12.4); Monocytes # (auto) 0.48 K/uL (0.11-0.59); Monocytes % (auto) 9.1 %; Neutrophils # (auto) 3.58 K/uL (1.40-6.50); Neutrophils % (auto) 67.8 %; Platelet Count 108 K/uL (130-400); RDW Coefficient of Variation 12.8 % (11.5-14.5); RDW Standard Deviation 40.6 fL (36.4-46.3); Red Blood Count 5.02 M/uL (4.70-6.10); White Blood Count 5.27 K/ul (4.8-10.8)
[2023-02-16 06:54] LABS: BUN Creatinine Ratio 15.3 (10-20); Creatinine Clr Calc Pharmacy 48.7 ml/min; Est GFR (African American) 69.8 ml/min; Est GFR (Non-African American) 60.2 ml/min
--- NOTE | 2023-02-16 07:22 | XRay Report ---
XR chest 1V portable HISTORY: weakness COMPARISON: Chest 03/25/2022. FINDINGS: There are low lung volumes and poststernotomy changes. No new focal lung consolidations to suggest a pneumonia. No evidence for pulmonary edema. The heart is normal in size. Stable right hilar prominence. No pleural effusions. No pneumothorax. No acute fractures. IMPRESSION: No significant change compared to the prior study. No acute process. ACT 112: Negative or not required by law. Electronically signed by: Ollie Alexander M.D. 02/16/2023 7:21 AM
--- NOTE | 2023-02-16 08:07 | Hospitalist Progress Note ---
Date of Service February 16, 2023 Assessment & Plan (1) Dizziness: Plan: 87yo male with two days of dizziness, gait instability, visual disturbance. Found to have occlusion of right vertebral artery on CTA with some reconstitution of flow - age uncertain. Could possibly be contributing to patient's symptoms. He has been given ASA 324mg. -Admit to medical with telemetry -Neuro checks and NIHSS -MRI Brain - cerebral volume loss, no acute infarct -Check 2D echo - P -Neurology consultation appreciated -Last ApnH0N=6.2 on 12/13/22 -Last lipid profile 05/09/22 - total bjihvarxqfj=570, HDL=41, LDL=59, VLDL=2- and TG=99 -Continue ASA 81mg po daily -Continue Atorvastatin 40mg po daily -PT/OT evaluation appreciated (2) Hypertension: Plan: Blood pressure elevated above goal 02/16 -MRI neg -Patient is on Amlodipine, Isosorbide mononitrate, Lisinopril-HCTZ at home -resume antihypertensives (3) Coronary artery disease: Plan: Chronic. Stable. Patient denies chest pain -Continue ASA and Atorvastatin (4) Diabetes mellitus, type II: Plan: Patient on Lantus 35u qHS -Lantus 15u BID -ISS -Goal blood sugar 110 - 180 F/E/N - Saline lock. Electrolytes WNL. Heart healthy/CC diet as tolerated Ppx - Low risk for DVT Code - Full per discussion with patient Dispo - Admit to medical Admission and Anticipated Discharge Date Admission Date: February 15, 2023 Results & Data Results & Data Vital Signs (Past 12 Hours) Vital Signs Temp Pulse Pulse Resp BP BP BP 02/16/23 07:14 36.5 C 72 16 160/93 H 02/16/23 05:50 70 02/16/23 02:00 36.3 C L 73 20 185/81 H 170/81 H 02/16/23 01:12 53 L 02/16/23 01:00 90 17 165/105 H 02/16/23 01:00 64 02/16/23 00:46 126 H 20 159/113 H 02/15/23 23:30 64 23 160/90 H 02/15/23 23:00 65 22 165/95 H 02/15/23 21:10 61 11 L 02/15/23 21:00 62 15 170/93 H 02/15/23 20:50 58 L 13 02/15/23 20:43 58 L 18 176/93 H 02/15/23 20:41 67 13 02/15/23 20:41 177/101 H 02/15/23 20:41 62 18 177/101 H 02/15/23 20:40 61 19 02/15/23 20:30 63 19 02/15/23 20:24 70 17 188/126 H 02/15/23 20:23 02/15/23 20:10 72 23 Pulse Ox O2 Del Method 02/16/23 07:14 93 Room Air 02/16/23 05:50 02/16/23 02:00 97 Room Air 02/16/23 01:12 02/16/23 01:00 94 02/16/23 01:00 02/16/23 00:46 94 02/15/23 23:30 02/15/23 23:00 02/15/23 21:10 97 02/15/23 21:00 96 Room Air 02/15/23 20:50 97 02/15/23 20:43 97 02/15/23 20:41 96 02/15/23 20:41 02/15/23 20:41 96 Room Air 02/15/23 20:40 96 02/15/23 20:30 96 Room Air 02/15/23 20:24 94 02/15/23 20:23 94 02/15/23 20:10 95 Diagnostic Findings 02/16/23 05:52 02/16/23 05:[address] 02/15/23 17:44 Exam(s): CT HEAD Without Contrast EXAM: CT Head Without Intravenous Contrast CLINICAL HISTORY: Reason for exam: neuro deficit, acute stroke suspected. TECHNIQUE: Axial computed tomography images of the head/brain without intravenous contrast. CTDI is 67.69 mGy and DLP is 1028.61 mGy-cm. Automated exposure control was utilized for the study. A dose lowering technique was utilized adhering to the principles of ALARA. COMPARISON: CT head on 03/27/2022 FINDINGS: Brain: No acute infarct or hemorrhage identified. No extra-axial fluid collection. No mass effect or midline shift. Scattered areas of hypoattenuation in the supratentorial white matter likely represent chronic small vessel ischemic changes. Ventricles and sulci: Prominence of the ventricles and sulci is likely secondary to cerebral volume loss. Bones: Normal. No bony lesion or acute fracture. Subcutaneous tissues: Normal. Sinuses: Mild mucosal thickening in the ethmoid air cells and right frontal sinus. Mastoid air cells: Normal. Orbits: Bilateral lens implants. Other: Atherosclerotic calcifications in the intracranial vasculature. IMPRESSION: 1. No acute intracranial abnormality. If there is persistent concern for acute infarct, consider further evaluation with MRI. 2. Chronic small vessel ischemic changes and cerebral volume loss. Electronically signed by: Juventino Gutierrez M.D. 02/15/23 20:30 PM Head CTA 02/15/23 17:44 Exam(s): CTA HEAD With Contrast IV Amt: 110 ml opti 320 EXAM: CT Angiography Head With Intravenous Contrast CLINICAL HISTORY: Reason for exam: neuro deficit, acute stroke suspected. TECHNIQUE: Axial computed tomographic angiography images of the head with intravenous contrast. CTDI is 67.69 mGy and DLP is 1028.61 mGy-cm. Automated exposure control was utilized for the study. A dose lowering technique was utilized adhering to the principles of ALARA. MIP reconstructed images were created and reviewed. CONTRAST: Patient received 110 ml opti 320 of IV contrast COMPARISON: None FINDINGS: Right internal carotid artery: Atherosclerotic calcifications in the distal right ICA. No significant stenosis. No aneurysm. Right anterior cerebral artery: Unremarkable. No occlusion or significant stenosis. No aneurysm. Right middle cerebral artery: Unremarkable. No occlusion or significant stenosis. No aneurysm. Right posterior cerebral artery: Unremarkable. No occlusion or significant stenosis. No aneurysm. Right vertebral artery: Occluded right vertebral artery, age indeterminate without prior exams available for comparison. Short segment of reconstituted flow in a portion of the V4 segment of the right vertebral artery which occludes again distally. Left internal carotid artery: Atherosclerotic calcifications in the distal left ICA. No significant stenosis. No aneurysm. Left anterior cerebral artery: Unremarkable. No occlusion or significant stenosis. No aneurysm. Left middle cerebral artery: Unremarkable. No occlusion or significant stenosis. No aneurysm. Left posterior cerebral artery: Unremarkable. No occlusion or significant stenosis. No aneurysm. Left vertebral artery: Unremarkable as visualized. Basilar artery: Unremarkable. No occlusion or significant stenosis. No aneurysm. IMPRESSION: Occluded right vertebral artery, age indeterminate without prior exams available for comparison. Short segment of reconstituted flow in a portion of the V4 segment of the right vertebral artery which occludes again distally. Electronically signed by: Juventino Gutierrez M.D. 02/15/23 20:37 PM Neck CTA 02/15/23 17:44 CR Exam(s): CTA NECK With Contrast IV Amt: 110 ml opti 320 EXAM: CT Angiography Neck With Intravenous Contrast CLINICAL HISTORY: Reason for exam: neuro deficit, acute stroke suspected. TECHNIQUE: Routine carotid CT angiography protocol was performed with intravenous contrast. NASCET criteria using the distal ICAs for comparison were used for evaluation of stenoses. CTDI is 67.69 mGy and DLP is 1028.61 mGy-cm. Automated exposure control was utilized for the study. A dose lowering technique was utilized adhering to the principles of ALARA. MIP reconstructed images were created and reviewed. CONTRAST: Patient received 110 ml opti 320 of IV contrast COMPARISON: None FINDINGS: VASCULATURE: Right common carotid artery: Unremarkable. No occlusion or significant stenosis. No dissection. Right internal carotid artery: Mild atherosclerotic calcification in the right carotid bulb and proximal right ICA. No significant stenosis. No dissection. Right external carotid artery: Unremarkable. No occlusion. Right vertebral artery: Occluded right vertebral artery, age indeterminate without prior exams available for comparison. Some reconstituted flow is seen within the right vertebral artery at the C2-C4 level. Left common carotid artery: Unremarkable. No occlusion or significant stenosis. No dissection. Left internal carotid artery: Mild atherosclerotic calcification in the left carotid bulb and proximal left ICA. No significant stenosis. No dissection. Left external carotid artery: Unremarkable. No occlusion. Left vertebral artery: Unremarkable. No occlusion or significant stenosis. No dissection. NECK: Bones/joints: Unremarkable. No acute fracture. Soft tissues: Unremarkable. Lung apices: Clear. CAROTID STENOSIS REFERENCE USING NASCET CRITERIA: % ICA stenosis = (1 - narrowest ICA diameter/diameter of distal cervical ICA) x 100. Mild - <50% stenosis. Moderate - 50-69% stenosis. Severe - 70-94% stenosis. Near occlusion - 95-99% stenosis. Occluded - 100% stenosis. IMPRESSION: Occluded right vertebral artery, age indeterminate without prior exams available for comparison. Some reconstituted flow is seen within the right vertebral artery at the C2-C4 level. Communications: Call Doctor Acute arterial occlusion/ critical stenosis Electronically signed by: Juventino Gutierrez M.D. 02/15/23 20:35 PM Chest X-Ray 02/15/23 19:05 XR chest 1V portable HISTORY: weakness COMPARISON: Chest 03/25/2022. FINDINGS: There are low lung volumes and poststernotomy changes. No new focal lung consolidations to suggest a pneumonia. No evidence for pulmonary edema. The heart is normal in size. Stable right hilar prominence. No pleural effusions. No pneumothorax. No acute fractures. IMPRESSION: No significant change compared to the prior study. No acute process. ACT 112: Negative or not required by law. Electronically signed by: Ollie Alexander M.D. 02/16/2023 7:21 AM Brain MRI 02/16/23 00:02 Exam(s): MRI HEAD W/WO Contrast IV Amt: 7cc gadavist EXAM: MR Head Without and With Intravenous Contrast CLINICAL HISTORY: Reason for exam: Possible stroke. TECHNIQUE: Magnetic resonance images of the head/brain without and with intravenous contrast in multiple planes. CONTRAST: Patient received 7cc gadavist of IV contrast COMPARISON: CT head on 02/15/2023 FINDINGS: Brain: Mild chronic small vessel ischemic disease. No hemorrhage. No restricted diffusion to suggest acute infarct. No abnormal parenchymal enhancement. Ventricles: Prominence of the ventricles and sulci is again secondary to cerebral volume loss. Bones/joints: Unremarkable. No acute fracture. Sinuses: Polyp versus mucous retention cyst in the left maxillary sinus. No acute sinusitis. Mastoid air cells: Fluid within right greater than left mastoid air cells. Orbits: Bilateral lens implants. IMPRESSION: 1. No restricted diffusion to suggest acute infarct. 2. No abnormal parenchymal enhancement. Electronically signed by: Juventino Gutierrez M.D. 02/16/23 03:07 AM PG Care Time/CCT Total # of Minutes Spent Total Time Spent with Patient: Total time spent is greater than 50% in coordination of care (as documented) at patient's floor/unit and/or counseling patient: Coding Diagnoses Dizziness R42 Hypertension I10 Coronary artery disease I25.10 Diabetes mellitus, type II E11.9
[2023-02-16] MEDS: INSULIN ASPART PER UNIT CHARGE SC SCH ×2 (08:46→12:50)
--- NOTE | 2023-02-16 08:52 | Electrocardiogram Report ---
Test Reason : Blood Pressure : / mmHG Vent. Rate : 063 BPM Atrial Rate : 063 BPM P-R Int : 166 ms QRS Dur : 124 ms QT Int : 448 ms P-R-T Axes : 072 002 042 degrees QTc Int : 458 ms Normal sinus rhythm Non-specific intra-ventricular conduction delay Possible Old Septal infarct (cited on or before 25-MAR-2022) Abnormal ECG When compared with ECG of 25-MAR-2022 21:11, No significant change was found Confirmed by Travis Dean ([id number]) on 02/16/2023 8:52:12 AM Referred By: REFERRED SELF Confirmed By:Travis Dean
[2023-02-16] MEDS ORDERED: amLODIPine BESYLATE 5 MG TAB PO SCH (09:00)
[2023-02-16] MEDS ORDERED: ASPIRIN 81 MG ECTAB PO SCH (09:00)
[2023-02-16] MEDS ORDERED: ISOSORBIDE MONO EXTENDED REL 30 MG TABCR PO SCH (09:00)
[2023-02-16] MEDS ORDERED: LANTUS PER UNIT CHARGE SQ SCH (09:00)
[2023-02-16] MEDS ORDERED: ATORVASTATIN 40 MG TAB PO SCH (09:00)
[2023-02-16] MEDS ORDERED: LISINOPRIL/HCTZ 20/12.5MG 1 TAB TAB PO SCH (09:00)
--- NOTE | 2023-02-16 09:51 | Neurology Consultation ---
Date of Consultation February 16, 2023 Assessment & Plan (1) Stroke-like symptoms: (2) Occlusion of right vertebral artery: Plan 87-year-old male with somewhat nonspecific strokelike symptoms including dizziness, blurry vision, low-grade frontal headache, and perhaps some speech hesitancy as well beginning 3 days ago, but resolved this morning. CT angiography has revealed an age-indeterminate occlusion of the right vertebral artery with distal reconstitution. Follow-up brain MRI was negative for acute or subacute infarct, however. Patient does not have neurologic signs or symptoms that would strongly suggest a brainstem stroke syndrome. He does have very mild right lower facial weakness on examination although this finding could be chronic. He does have subtle speech hesitancy as well but he is not grossly aphasic or dysarthric. He feels that his speech is currently at baseline. His brain MRI does reveal generalized atrophy and chronic microvascular ischemic disease. Stroke risk factors for this patient include insulin-dependent diabetes mellitus which is perhaps suboptimally controlled with a recent hemoglobin A1c of 8.2. He is also hypertensive and has a history of dyslipidemia. His blood lipids do appear to be well controlled. I also note his history of immune thrombocytopenic purpura which is a risk for both hemorrhagic and ischemic stroke. Given that this patient has ITP, I would not recommend dual antiplatelet therapy. Either aspirin or clopidogrel appear to be equally effective and safe for secondary stroke risk reduction in patients with thrombocytopenia. Therefore, given the likelihood that this patient had a TIA or possibly small not imageable stroke, I would consider switching from daily low-dose aspirin to clopidogrel 75 mg/day. Would need ongoing monitoring of his platelets and for development of any bleeding complications. Consider outpatient follow-up with hematology. Would continue with atorvastatin at the current dosage. Continue medical management of hypertension. Permissive hypertension acceptable acutely. Continue with current antihypertensive regimen. Patient will need ongoing follow-up with his PCP or endocrinology for management of his diabetes mellitus. Follow-up with results of echocardiogram. Consultations with PT/OT Does not require additional outpatient neurology follow-up. History of Present Illness Reason for Consultation: CVA Requesting Physician: Calvin Attending Physician: Aminata Gutierrez MD History of Present Illness The patient is an 87-year-old male with a chief complaint of dizziness, associated blurry vision, speech hesitancy, and low-grade frontal headache. He first noticed the symptoms prior to going to bed 3 nights ago, the symptoms seemed a bit worse upon awakening the following morning and had persisted until his presentation to the emergency department last night. He denies having any difficulty with strength or balance. No collapse or falls. No numbness. He feels considerably improved this morning. He was noted to have subtle speech hesitancy during his initial assessment in the emergency department, but otherwise had an intact neurological examination. A CT of the head was negative for hemorrhage or acute process. A CTA of the head and neck revealed an age- indeterminate occlusion of the right vertebral artery with distal reconstitution. No significant stenosis of the carotids or intracranial circulation identified. He had a follow-up brain MRI completed as well. The study was negative for acute or subacute infarct. There is generalized atrophy and chronic microvascular ischemic disease. I independently reviewed these images. He has been modestly hypertensive in the context of this hospitalization. He is afebrile. He has had a modestly elevated blood glucose, hemoglobin A1c this past December was 8.2. A lipid panel completed this past May indicates good control of dyslipidemia with an LDL of 59 and total cholesterol of 120. An electrocardiogram has revealed a normal sinus rhythm, 63 bpm with a nonspecific intraventricular conduction delay. An echocardiogram completed in March 2022 was normal. Allergies Allergy/AdvReac Type Severity Reaction Status Date / Time No Known Allergies Allergy Verified 02/15/23 19:35 Home Medications Medication Instructions Recorded Confirmed Type lancets (Microlet Lancet) #50 ea 10/28/18 02/15/23 History Contour Next Test Strips (blood #300 ea 12/08/20 02/15/23 Rx sugar diagnostic) multivitamin (Multiple Vitamins 1 tab PO DAILY 05/24/21 02/15/23 History tablet) aspirin 81 mg capsule 81 mg PO DAILY #30 caps 03/27/22 02/15/23 Rx isosorbide mononitrate 30 mg 30 mg PO DAILY #90 tabs 04/18/22 02/15/23 Rx tablet,extended release 24 hr atorvastatin 40 mg tablet 40 mg PO QAM #90 tabs 07/07/22 02/15/23 Rx amlodipine 10 mg tablet 10 mg PO QAM #90 tabs 08/02/22 02/15/23 Rx lisinopril 20 1 tab PO QAM #180 tabs 08/11/22 02/15/23 Rx mg-hydrochlorothiazide 12.5 mg tablet BD Ultra-Fine Danielle Pen Needle 32 #400 ea 11/20/22 02/15/23 Rx gauge x 32" (pen needle, diabetic) nitroglycerin 0.4 mg sublingual 0.4 mg sublingual Q5M PRN dyspnea 12/12/22 02/15/23 Rx tablet (Nitrostat) #25 tabs insulin glargine 100 unit/mL (3 35 unit (0.35 mL) subcut QPM #45 mL 12/25/22 02/15/23 Rx mL) subcutaneous pen (Basaglar KwikPen U-100 Insulin) insulin aspart U-100 100 unit/mL 0 unit subcut DAILY 02/15/23 02/15/23 History (3 mL) subcutaneous pen (Novolog FlexPen U-100 Insulin aspart) potassium chloride 10 mEq 10 meq PO DAILY 02/15/23 02/15/23 History capsule,extended release Patient History Medical History Acute kidney injury superimposed on CKD Right hand paresthesia Cataracts, bilateral History of COVID-19 Snores REFUSED SLEEP STUDY Diabetes NIKOLSKI (hard of hearing) Low back pain Thyroglossal duct cyst Seborrheic keratosis Chronic sinusitis Anemia Dysphagia DENIES Calcaneal spur Basal cell carcinoma HX Diabetic nephropathy DENIES Coronary artery disease . Followed by cardiology. Hyperlipidemia Chronic kidney disease AGE APPROPRIATE KIDNEY DISEASE PER DAUGHTER Hypertension Surgical History History of squamous cell carcinoma excision 08/08/22 History of left cataract surgery History of thyroid surgery CYST REMOVED, NON CANCEROUS 50+ YR AGO History of carpal tunnel release H/O colonoscopy No further screening recommended, 03/2014 Hx of CABG OPEN HEART SURGERY, BLOCKAGES 2006 AT [facility] Hx of total knee arthroplasty Left, 2002 Family History Unknown No problems noted. Father Prostate cancer Alcohol abuse Mother Hypertension Stroke Brother Atrial fibrillation Heart disease Grandmother Diabetes Stroke Uncle Diabetes Denies family history of Ovarian cancer Myocardial infarction Breast cancer Lung cancer Colorectal cancer Social History Smoking Status: Never smoker Second Hand Exposure: No; Do You Dip or Chew Tobacco: No; Hx Alcohol Use: No Hx Substance Use: No Preferred Language: Barbadian Communication Ability: Effective Communication Ability Comment: NIKOLSKI Visual Impairment: Limited Hearing Ability: Use of Hearing Aid C4 Planner Required: No Beliefs That Will Affect Care: None marital status: Current Living Situation: Spouse Current Living Situation Comment: senior care apartments current occupational status: 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 How many Children do You have: 3 Feels Safe at Home: Yes Safety Concerns: Feels Safe At This Time Childhood Exposure to Second-Hand Smoke: No caffeine: Yes Dental Care, Regularly: No Physical Activity Frequency: 1-2 Times per Week Seatbelt Use: always Sunscreen Use: No Assistive Devices: Glasses and Walker Review of Systems Constitutional: no fever and no chills Eyes: as per Subjective / HPI; no blind spots, no diplopia and no eye pain Ear, Nose, Mouth, Throat: no hearing loss (Chronic, has hearing aids) Respiratory: no cough and no dyspnea Cardiovascular: no chest pain and no palpitations Gastrointestinal: no nausea and no vomiting Genitourinary: no dysuria or no urinary incontinence Integumentary: no rash and no lesions Neurologic: as per Subjective / HPI Psychiatric: no depression and no anxiety Hematologic / Lymphatic: no easy bleeding and no easy bruising Exam (Neuro) Constitutional: well developed and well nourished; no acute distress Eyes: normal visual bains by confrontation, PERRL and EOM intact bilaterally; no nystagmus Neurologic: Oriented to:: Person, Place and Time Memory: Short Term Intact and Remote Intact Attention: Span Intact and Concentration Intact Speech Fluency: Other (Slight speech hesitancy noted, no aphasia or dysarthria (chronic?)); negative Dysarthria or Dysfluency Speech Aphasia: negative Aphasia Fund of Knowledge: Current Events, Past History and Vocabulary Cranial Nerves: Normal II, III, IV, , V, VIII, IX, X, XI and XII; Abnorm VII (Mild right lower facial weakness observed (chronic?)) Motor Strength: Normal Lower Extremities and Normal Upper Extremities; negative Pronator Drift or Hemiparesis Motor Tone: Normal Lower Extremities and Normal Upper Extremities Muscle Bulk/Involuntary Movements: No Involuntary Movements; negative Muscle Atrophy Sensation: Light Touch Intact, Pain/Temperature Intact and Proprioception Intact Coordination: Normal; negative Dysdiadochokinesia, Finger-Nose Abnormal or Heel-Rodrigues Abnormal Deep Tendon Reflexes: Rt Triceps: 1+, Lt Triceps: 1+, Rt Biceps: 1+, Lt Biceps: 1+, Rt Brachioradialis: 1+, Lt Brachioradialis: 1+, Rt Patellar: 2+, Lt Patellar: 2+, Rt Ankle: 1+ and Lt Ankl e: 1+ Special Tests: negative Babinski Present Details: Gait not tested Results & Data Vital Signs (Past 12 Hours) Vital Signs Temp Pulse Pulse Resp BP BP BP 02/16/23 07:14 36.5 C 72 16 160/93 H 02/16/23 05:50 70 02/16/23 02:00 36.3 C L 73 20 185/81 H 170/81 H 02/16/23 01:12 53 L 02/16/23 01:00 90 17 165/105 H 02/16/23 01:00 64 02/16/23 00:46 126 H 20 159/113 H 02/15/23 23:30 64 23 160/90 H 02/15/23 23:00 65 22 165/95 H Pulse Ox O2 Del Method 02/16/23 07:14 93 Room Air 02/16/23 05:50 02/16/23 02:00 97 Room Air 02/16/23 01:12 02/16/23 01:00 94 02/16/23 01:00 02/16/23 00:46 94 02/15/23 23:30 02/15/23 23:00 Laboratory Results WBC 5.27, hemoglobin 15.0, hematocrit 44.1, MCV 87.8, platelet count 108, sodium 139, potassium 4.0, BUN 17, creatinine 1.11, glucose 262, magnesium 2.2, AST 19, ALT 19, upper respiratory PCR testing negative, Lyme screening negative Diagnostic Findings CT of the head, CT angiography of the head and neck, and brain MRI are as described in the HPI, I independently reviewed these images. An echocardiogram completed March 25, 2022 was essentially normal, normal left ventricular size, wall thickness and systolic function, EF 60 to 65%, left atrial size normal, no significant valvular disease, no ASD. Coding Level of Care Code 86276 INT INP/OBS CARE 3/75MIN Diagnoses Stroke-like symptoms R29.90 Occlusion of right vertebral artery I65.01 Time Spent (min) 80
--- NOTE | 2023-02-16 12:29 | Pharmacy Report ---
- Date of Service February 16, 2023 - Pharmacy CVA/TIA Medication Review Medications to Prevent Stroke handout has been added to the patients discharge packet. Antiplatelet(s) * Aspirin 81 mg PO daily w/ consideration to switch to clopidogrel 75 mg PO daily * No DAPT due to ITP Cholesterol * High intensity statin: atorvastatin 40 mg daily DVT Prophylaxis * Pharmacologic and mechanical DVT prophylaxis deferred due to low risk for DVT and likely discharge today Therapeutic Anticoagulation * No history of Afib/Aflutter noted Type 2 Diabetes * Patient has T2DM w/ suboptimal control as an outpatient (HbA1c > 8%). Per Dr. Gutierrez, will consider discharge with a diabetes medication with proven CVD benefit (empagliflozin). If not, decision will be deferred to their outpatient provider due to familiarity with risks/benefits of such therapies. "Medications to prevent stroke" handout has already been added to the patient's discharge packet, which instructs the patient to follow up with their outpatient provider to evaluate which diabetes medication with proven CVD benefit is best for them
--- NOTE | 2023-02-16 14:07 | XCELERA ---
[id number]
[2023-02-16] MEDS ORDERED: STROKE PATIENT DISCHARGE STA (14:47)
--- NOTE | 2023-02-16 18:58 | Discharge Summary ---
Date of Service February 16, 2023 Admission HPI Per Admitting Provider Galdino Ruth is an 87yo male with history of CAD s/p CABG in 2005, DM, HTN, HLP and CKD presenting from home with complaint of imbalance, blurry vision and delay in speech. Yesterday patient did not feel well - he felt somewhat dizzy and lightheaded. Throughout today he had episodes of blurry vision "like a glare" as well as imbalance and some delay with word finding. He also developed a headache this evening. Patient was seen by his PCP and instructed to come to the ER for further workup. He denies fever, chills, chest pain, cough, SOB, abdominal pain, nausea, vomiting, diarrhea. He has chronic numbness in his right hand from prior carpal-tunnel release Denies falls No difficulty with swallowing In the ER he is afebrile, hypertensive, adequate oxygenation on room air ER Course: ASA Principal Diagnosis Right vertebral artery occlusion, TIA Discharge Exam PHYSICAL EXAMINATION Last 24h vital signs reviewed, see documentation in flowsheet General: comfortable appearing, no distress HEENT: Normocephalic, atraumatic, pupils round and equal, sclerae anicteric, no conjunctival injection, moist mucus membranes Lungs: Normal respiratory effort. Clear to auscultation bilaterally. No RRW Heart: Regular rate and rhythm, no murmurs. No JVD Abdomen: Soft, nontender, nondistended. Bowel sounds present. Extremities: Warm, dry, well-perfused. No extremity edema. Neuro: Alert and oriented x 4, mildly asymmetric face and slightly clumsy speech which is his baseline, astrid, eomi, moves 4 extremities well Psych: Normal affect and behavior Discharge Data Allergies Allergy/AdvReac Type Severity Reaction Status Date / Time No Known Allergies Allergy Verified 02/15/23 19:35 Consultations 02/15/23 20:47 ED Decision to Admit Stat 02/15/23 23:32 Consult Neurology Routine Ordered Studies 02/15/23 17:44 CT angio head w con Stat CT angio neck with con Stat CT head/brain wo con Stat 02/16/23 00:02 MR brain wo/w con Routine Head CT 02/15/23 17:44 Exam(s): CT HEAD Without Contrast EXAM: CT Head Without Intravenous Contrast CLINICAL HISTORY: Reason for exam: neuro deficit, acute stroke suspected. TECHNIQUE: Axial computed tomography images of the head/brain without intravenous contrast. CTDI is 67.69 mGy and DLP is 1028.61 mGy-cm. Automated exposure control was utilized for the study. A dose lowering technique was utilized adhering to the principles of ALARA. COMPARISON: CT head on 03/27/2022 FINDINGS: Brain: No acute infarct or hemorrhage identified. No extra-axial fluid collection. No mass effect or midline shift. Scattered areas of hypoattenuation in the supratentorial white matter likely represent chronic small vessel ischemic changes. Ventricles and sulci: Prominence of the ventricles and sulci is likely secondary to cerebral volume loss. Bones: Normal. No bony lesion or acute fracture. Subcutaneous tissues: Normal. Sinuses: Mild mucosal thickening in the ethmoid air cells and right frontal sinus. Mastoid air cells: Normal. Orbits: Bilateral lens implants. Other: Atherosclerotic calcifications in the intracranial vasculature. IMPRESSION: 1. No acute intracranial abnormality. If there is persistent concern for acute infarct, consider further evaluation with MRI. 2. Chronic small vessel ischemic changes and cerebral volume loss. Electronically signed by: Juventino Gutierrez M.D. 02/15/23 20:30 PM Head CTA 02/15/23 17:44 Exam(s): CTA HEAD With Contrast IV Amt: 110 ml opti 320 EXAM: CT Angiography Head With Intravenous Contrast CLINICAL HISTORY: Reason for exam: neuro deficit, acute stroke suspected. TECHNIQUE: Axial computed tomographic angiography images of the head with intravenous contrast. CTDI is 67.69 mGy and DLP is 1028.61 mGy-cm. Automated exposure control was utilized for the study. A dose lowering technique was utilized adhering to the principles of ALARA. MIP reconstructed images were created and reviewed. CONTRAST: Patient received 110 ml opti 320 of IV contrast COMPARISON: None FINDINGS: Right internal carotid artery: Atherosclerotic calcifications in the distal right ICA. No significant stenosis. No aneurysm. Right anterior cerebral artery: Unremarkable. No occlusion or significant stenosis. No aneurysm. Right middle cerebral artery: Unremarkable. No occlusion or significant stenosis. No aneurysm. Right posterior cerebral artery: Unremarkable. No occlusion or significant stenosis. No aneurysm. Right vertebral artery: Occluded right vertebral artery, age indeterminate without prior exams available for comparison. Short segment of reconstituted flow in a portion of the V4 segment of the right vertebral artery which occludes again distally. Left internal carotid artery: Atherosclerotic calcifications in the distal left ICA. No significant stenosis. No aneurysm. Left anterior cerebral artery: Unremarkable. No occlusion or significant stenosis. No aneurysm. Left middle cerebral artery: Unremarkable. No occlusion or significant stenosis. No aneurysm. Left posterior cerebral artery: Unremarkable. No occlusion or significant stenosis. No aneurysm. Left vertebral artery: Unremarkable as visualized. Basilar artery: Unremarkable. No occlusion or significant stenosis. No aneurysm. IMPRESSION: Occluded right vertebral artery, age indeterminate without prior exams available for comparison. Short segment of reconstituted flow in a portion of the V4 segment of the right vertebral artery which occludes again distally. Electronically signed by: Juventino Gutierrez M.D. 02/15/23 20:37 PM Neck CTA 02/15/23 17:44 CR Exam(s): CTA NECK With Contrast IV Amt: 110 ml opti 320 EXAM: CT Angiography Neck With Intravenous Contrast CLINICAL HISTORY: Reason for exam: neuro deficit, acute stroke suspected. TECHNIQUE: Routine carotid CT angiography protocol was performed with intravenous contrast. NASCET criteria using the distal ICAs for comparison were used for evaluation of stenoses. CTDI is 67.69 mGy and DLP is 1028.61 mGy-cm. Automated exposure control was utilized for the study. A dose lowering technique was utilized adhering to the principles of ALARA. MIP reconstructed images were created and reviewed. CONTRAST: Patient received 110 ml opti 320 of IV contrast COMPARISON: None FINDINGS: VASCULATURE: Right common carotid artery: Unremarkable. No occlusion or significant stenosis. No dissection. Right internal carotid artery: Mild atherosclerotic calcification in the right carotid bulb and proximal right ICA. No significant stenosis. No dissection. Right external carotid artery: Unremarkable. No occlusion. Right vertebral artery: Occluded right vertebral artery, age indeterminate without prior exams available for comparison. Some reconstituted flow is seen within the right vertebral artery at the C2-C4 level. Left common carotid artery: Unremarkable. No occlusion or significant stenosis. No dissection. Left internal carotid artery: Mild atherosclerotic calcification in the left carotid bulb and proximal left ICA. No significant stenosis. No dissection. Left external carotid artery: Unremarkable. No occlusion. Left vertebral artery: Unremarkable. No occlusion or significant stenosis. No dissection. NECK: Bones/joints: Unremarkable. No acute fracture. Soft tissues: Unremarkable. Lung apices: Clear. CAROTID STENOSIS REFERENCE USING NASCET CRITERIA: % ICA stenosis = (1 - narrowest ICA diameter/diameter of distal cervical ICA) x 100. Mild - <50% stenosis. Moderate - 50-69% stenosis. Severe - 70-94% stenosis. Near occlusion - 95-99% stenosis. Occluded - 100% stenosis. IMPRESSION: Occluded right vertebral artery, age indeterminate without prior exams available for comparison. Some reconstituted flow is seen within the right vertebral artery at the C2-C4 level. Communications: Call Doctor Acute arterial occlusion/ critical stenosis Electronically signed by: Juventino Gutierrez M.D. 02/15/23 20:35 PM Chest X-Ray 02/15/23 19:05 XR chest 1V portable HISTORY: weakness COMPARISON: Chest 03/25/2022. FINDINGS: There are low lung volumes and poststernotomy changes. No new focal lung consolidations to suggest a pneumonia. No evidence for pulmonary edema. The heart is normal in size. Stable right hilar prominence. No pleural effusions. No pneumothorax. No acute fractures. IMPRESSION: No significant change compared to the prior study. No acute process. ACT 112: Negative or not required by law. Electronically signed by: Ollie Alexander M.D. 02/16/2023 7:21 AM Brain MRI 02/16/23 00:02 Exam(s): MRI HEAD W/WO Contrast IV Amt: 7cc gadavist EXAM: MR Head Without and With Intravenous Contrast CLINICAL HISTORY: Reason for exam: Possible stroke. TECHNIQUE: Magnetic resonance images of the head/brain without and with intravenous contrast in multiple planes. CONTRAST: Patient received 7cc gadavist of IV contrast COMPARISON: CT head on 02/15/2023 FINDINGS: Brain: Mild chronic small vessel ischemic disease. No hemorrhage. No restricted diffusion to suggest acute infarct. No abnormal parenchymal enhancement. Ventricles: Prominence of the ventricles and sulci is again secondary to cerebral volume loss. Bones/joints: Unremarkable. No acute fracture. Sinuses: Polyp versus mucous retention cyst in the left maxillary sinus. No acute sinusitis. Mastoid air cells: Fluid within right greater than left mastoid air cells. Orbits: Bilateral lens implants. IMPRESSION: 1. No restricted diffusion to suggest acute infarct. 2. No abnormal parenchymal enhancement. Electronically signed by: Juventino Gutierrez M.D. 02/16/23 03:07 AM 02/16/23 05:52 02/16/23 05:52 A1c 8.2 on 12/2022 Lipids 05/2022 LDL 59, LDL <50 serial checks yearly since 2017, HDL 40s Diabetes Follow up with primary care Hospital Course (1) Stroke-like symptoms: (2) Occlusion of right vertebral artery: Presented with transient stroke-like symptoms as detailed in HPI above. ED workup notable for right vertebral artery occlusion on CTA which does correlate with his symptoms. Symptoms resolved did not recur. Given aspirin, permissive hypertension, stroke pathway care. Brain MRI negative for acute infarct. TTE unremarkable with no concern for embolic source and unchanged from previous. Neurologist consulted thought likely TIA vs tiny brainstem stroke not visible on imaging. Recommended medical therapy for risk factor reduction. Recommended changing from ASA to plavix for antiplatelet, DAPT thought too high risk given his ITP and chronic thrombocytopenia. Neurologist recommended hematology referral, which was made. Home antihypertensives and statin were continued, cholesterol has been under good control year over year. He has diabetes with A1c recently above goal and he would benefit from SGLT-2 given his constellation of cardiovascular disease, cerebrovascular disease, and CKD stage 2 or 3. Rx for low dose jardiance was given. I personally discussed stroke signs and symptoms with him, potential risks and side effects of plavix and jardiance, and updated his daughter who is an RN and who was present. He will monitor his AM blood sugar and she knows to help him reduce his glargine by 5-10 units if having hypoglycemia with initiation of new med. Admission was reviewed by utilization review and deemed not to meet inpatient criteria therefore was changed to ambulatory encounter. (3) Hypertension: (4) Coronary artery disease: (5) Hx of CABG: (6) Hyperlipidemia: (7) Hyperbilirubinemia: Labs and physical examination not consistent with cirrhosis, persistent and longstanding, perhaps low grade hemolysis - follow up in outpatient setting. 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 hematology input may be helpful [facility] given his vascular disease and need for antiplatelet agents Total Time Total Time Spent Total Time Spent (In Minutes): 55 minutes coordinating care for discharge Discharge Plan Discharge Items Patient Disposition: Home - Self-Care Reason For Visit: DIZZINESS Discharge Diagnosis: lightheadedness, right vertebral artery occlusion, possibly TIA Condition on Discharge: Fair Activity: Resume your previous activity Non-emergency contact: Primary Care Provider Call non-emergency contact if: you have any medication questions Follow-up/Referrals: Javier Anguiano, [Primary Care Provider] - 02/27/23 9:30 am Diet: Carb Consistent or DM2 and Heart Healthy Addtl Attending Provider Instructions: Dear Mr. Ruth You were evaluated for an episode of dizziness/lightheadedness that resolved. A CT angiogram of the arteries in your head and neck revealed an occlusion of your right vertebral artery (in the neck). A brain MRI was negative for stroke. The neurologist thought you could have had a TIA or tiny stroke that was not visible on MRI scan. It is important to reduce your risk of stroke in the future. Your Echo was unchanged from previous - there were no abnormalities on Echo that would contribute to stroke The neurologist recommended stopping aspirin and replacing it with medication called plavix. -follow up with your primary care doctor and have your blood platelet count checked in a few weeks -if you develop a new rash, abnormal bleeding, black/tarry or bloody stool or abnormal urination (like bloody or tea-colored urine or abnormally low amount of urine) while on this medication, seek medical attention Another important measure to prevent stroke is to improve your diabetes control. I prescribed medication called jardiance to help with your diabetes - this medication also reduces the risk of cardiovascular disease like heart attacks and strokes -do not take the jardiance (empaglifozin) if you are sick and not eating well or dehydrated -this medication carries risk of increased urinary tract infections and yeast infections of the groin area -this medication carries a very rare risk of DKA with normal blood sugar levels and severe skin infections of the groin area - seek medical attention if you have pain or burning with urination, rash in groin area, or redness and pain in the groin area It was a pleasure taking care of you in the hospital, Aminata Gutierrez MD Pending Studies at Discharge: No Stand-Alone Forms: My [facility] [employer], Smoking Cessation, Medications to Prevent Stroke Medications and DC Order Prescriptions: New clopidogrel 75 mg tablet 75 mg PO DAILY Qty: 30 0RF empagliflozin 10 mg tablet 10 mg PO DAILY Qty: 30 0RF Continued (DME) Contour Next Test Strips Strip See Dose Instructions .ROUTE .MEDSUPPLY Qty: 300 3RF Rx Instructions: Test blood sugars 3 times a day isosorbide mononitrate 30 mg tablet extended release 24 hr 30 mg PO DAILY Qty: 90 3RF atorvastatin 40 mg tablet 40 mg PO QAM Qty: 90 3RF amlodipine 10 mg tablet 10 mg PO QAM Qty: 90 3RF Rx Instructions: TAKE 1 TABLET BY MOUTH DAILY (DME) pen needle, diabetic [BD Ultra-Fine Danielle Pen Needle] 32 gauge x 5/32" needle See Dose Instructions .ROUTE .MEDSUPPLY Qty: 400 3RF Dose Instruction: As directed Rx Instructions: Inject insulin 4 times a day insulin glargine [Basaglar KwikPen U-100 Insulin] 100 unit/mL (3 mL) insulin pen 35 unit SQ QPM Qty: 45 3RF (DME) lancets [Microlet Lancet] misc See Dose Instructions .ROUTE .MEDSUPPLY Qty: 50 Rx Instructions: Test blood sugars 3 times a day multivitamin [Multiple Vitamins] Tablet 1 tab PO DAILY potassium chloride 10 mEq capsule, extended release 10 meq PO DAILY nitroglycerin [Nitrostat] 0.4 mg tablet, sublingual 0.4 mg sublingual Q5M PRN (Reason: dyspnea) Qty: 25 5RF Rx Instructions: do not exceed 3 doses per episode lisinopril-hydrochlorothiazide 20-12.5 mg tablet 1 tab PO QAM Qty: 180 3RF insulin aspart U-100 [Novolog FlexPen U-100 Insulin] 100 unit/mL (3 mL) insulin pen 0 unit subcut DAILY Rx Instructions: Inject 14 units with breakfast, 18 units with lunch and 18 units with dinner Discontinued aspirin 81 mg capsule 81 mg PO DAILY Qty: 30 0RF Discharge Orders: Discharge Order (Routine); Ordered 02/16/23 Ordered By: Aminata Ching/Other Patient Handouts: Symptoms of Stroke Admission Data Admit Date/Time: 02/15/23 21:36 Attending Provider: Aminata Gutierrez Admit Provider: Melissa Simpson Primary Care Provider: Javier Anguiano Other Providers: Melissa Simpson; Javier Lauren Other Interventions: Discharge Summary Assessment (RN) Last Done: 02/16/23 14:54 Coding Level of Care Code 83097 INP/OBS DISCH >30 MIN Diagnoses Stroke-like symptoms R29.90 Occlusion of right vertebral artery I65.01 Hypertension I10 Coronary artery disease I25.10 Hx of CABG Z95.1 Hyperlipidemia E78.5 Hyperbilirubinemia E80.6 Diabetes mellitus, type II E11.9 Immune thrombocytopenic purpura D69.3
== END 2023-02-16 15:39 | disposition home or self-care (01) | DRG 69 ==
LOC: ED 17:39 → INTOOBSV 21:36 → SUATTDRO 21:36 → EDINP 21:36 → 2N 02-16 01:53

== ENCOUNTER 2024-03-30 16:36 | Inpatient (IN) ==
[2024-03-30 17:43] LABS: Basophils # (auto) 0.03 K/uL (0.00-0.20); Basophils % (auto) 0.5 %; Eosinophils # (auto) 0.01 K/uL (0.00-0.50); Eosinophils % (auto) 0.2 %; Hemoglobin 16.2 g/dl (14.0-18.0); Immature Granulocytes # (auto) 0.05 K/uL (0.01-0.20); Immature Granulocytes % (auto) 0.8 %; Lymphocytes # (auto) 0.29 K/uL (1.20-3.40); Lymphocytes % (auto) 4.9 %; Mean Corpuscular Hemoglobin 29.5 pg (25.0-34.0); Mean Corpuscular Hgb Conc 33.8 g/dL (32.0-36.0); Mean Corpuscular Volume 87.3 fL (80.0-100.0); Mean Platelet Volume 10.1 fL (9.4-12.4); Monocytes # (auto) 0.52 K/uL (0.11-0.59); Monocytes % (auto) 8.7 %; Neutrophils # (auto) 5.06 K/uL (1.40-6.50); Neutrophils % (auto) 84.9 %; Platelet Count 104 K/uL (130-400); RDW Standard Deviation 41.5 fL (36.4-46.3); White Blood Count 5.96 K/ul (4.8-10.8)
[2024-03-30 18:09] LABS: Alanine Aminotransferase 14 U/L (7-52); Albumin Globulin Ratio 1.8 (0.9-2); Albumin Level 4.6 gm/dl (3.4-5.0); Alkaline Phosphatase 63 U/L (34-104); Anion Gap 13 (3-11); Aspartate Aminotransferase 18 U/L (13-39); BUN Creatinine Ratio 13.3 (10-20); Blood Urea Nitrogen 18 mg/dl (6-23); Calcium 10.5 mg/dl (8.6-10.3); Carbon Dioxide 23 mmol/L (21-32); Chloride 101 mmol/L (98-107); Globulin 2.6 gm/dl (2.5-4.0); Glucose 176 mg/dl (70-99(Fasting)); Potassium 3.9 mmol/L (3.5-5.1); Sodium 137 mmol/L (136-145); Total Protein 7.2 gm/dl (6.0-8.3)
[2024-03-30 18:10] LABS: Influenza A virus by PCR Positive (Neg); Influenza B virus by PCR Negative (Neg); RSV by PCR Negative (Neg); SARS CoV2 RNA(COVID-19) Ceph NEGATIVE (Negative)
[2024-03-30 18:15] LABS: Troponin I High Sensitivity 17.6 pg/ml (0-20)
--- NOTE | 2024-03-30 19:03 | Emergency Department Note ---
Impression & Plan Generalized weakness, Influenza A, Ambulatory dysfunction ED Provider Note HISTORY OF PRESENT ILLNESS: Patient is an 88-year-old male presenting with generalized weakness. Patient lives at home with his elderly . Presents with son. Son reports the patient has been very weak and having difficulties getting around at home since yesterday. Patient is a diabetic and had hyperglycemia this morning give himself 4 units of insulin. He states that he had some congestion starting yesterday with his weakness. He has been short of breath throughout the day today. Denies any DVT or PE history. Denies any chest pain. Reports he is on Plavix. Denies any abdominal pain, nausea or vomiting. Denies any recent sick contact exposures. Denies any recent falls or head injury. He ambulates without any assistive devices at home. Denies any dysuria or hematuria. ROS: as above PHYSICAL EXAM: Constitutional: Patient appears in no acute distress. HENT: Head: Normocephalic and atraumatic. Eyes: EOMI, PERRL Mouth/Throat: Mucous membranes moist. Neck: Trachea midline. Neck supple. Cardiovascular: RRR, No murmurs, rubs or gallops. Intact distal pulses. Pulmonary/Chest: No respiratory distress. Breath sounds clear and equal bilaterally. No wheezes or rales. Abdominal: Abdomen soft, no tenderness, rebound or guarding. Musculoskeletal: No edema, tenderness or deformity noted. Skin: Warm and dry. No rash, erythema, pallor or cyanosis Psychiatric: Appropriate mood and affect for situation. Neurological: Alert and keenly responsive. CN II-XII grossly intact, moving all extremities equally and fully. MDM: - Vitals signs showed hypotension and slight tachycardia. - History obtained via patient and patient's son. History as above. - Chronic conditions affecting care: CKD; HTN; HLD; DM-2; hyperbilirubinemia; CAD (s/p CABG) - Differential diagnoses include, but are not limited to: Viral syndrome; pneumonia; UTI; electrolyte abnormality; ACS - Order placed for continuous cardiac monitoring. At this time, monitor showed rate of 89 bpm with normal sinus rhythm, per my interpretation. - External medical records reviewed. Wellness visit note dated 12/17/2023 was reviewed. Patient was seen for his annual wellness exam. - EKG interpreted by myself showed normal sinus rhythm. Rate 85 bpm. QT 388. No acute ischemic changes. Noted to have an intraventricular block. - Laboratory workup interpreted by myself showed normal WBC; thrombocytopenia (plt 104); elevated anion gap (13); hypercalcemia (Ca 10.5); hyperbilirubinemia (total bilirubin 4.0); normal troponin - Viral respiratory panel positive for influenza A. - UA negative for infection - CXR negative for pneumonia, per my interpretation - Patient is saturating 97% on room air. We did attempt to get the patient up to ambulate, but he required significant assistance from nursing staff secondary to him being very unsteady on his feet. Discussed potential discharge versus admission with the patient and his son, and they were agreeable to admission for PT/OT assessment. - Discussion was had with onsite case manager about patient's case and need for admission - Hospitalist, Dr. Lucas, consulted for admission [facility] 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 Followed by cardiology. Hx of CABG OPEN HEART SURGERY, BLOCKAGES 2006 AT [facility] Hyperlipidemia Hyperbilirubinemia (Acute) Diabetes mellitus, type II (Chronic) Immune thrombocytopenic purpura Medical History Acute kidney injury superimposed on CKD Right hand paresthesia Cataracts, bilateral History of COVID-19 Snores [place] (hard of hearing) Low back pain Thyroglossal duct cyst Seborrheic keratosis Chronic sinusitis Anemia Dysphagia Calcaneal spur Basal cell carcinoma Diabetic nephropathy Chronic kidney disease Surgical History History of squamous cell carcinoma excision History of left cataract surgery History of thyroid surgery History of carpal tunnel release H/O colonoscopy Hx of total knee arthroplasty Family History Father Prostate cancer Alcohol abuse Mother Hypertension Stroke Brother Atrial fibrillation Heart disease Grandmother Diabetes Stroke Uncle Diabetes Denies family history of Ovarian cancer Myocardial infarction Breast cancer Lung cancer Colorectal cancer Social History Smoking Status: Never smoker Age Started Using Tobacco: 16; Age Quit Using Tobacco: 30; Cigarettes Per Day: .025; Second Hand Exposure: No; Do You Dip or Chew Tobacco: No; Hx Alcohol Use: No Hx Substance Use: No Preferred Language: Chinese Communication Ability: Effective Communication Ability Comment: [place] Visual Impairment: Limited Hearing Ability: Use of Hearing Aid Die Lay Out Worker Required: No marital status: Current Living Situation: Spouse current occupational status: retired 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 How many Children do You have: 3 Feels Safe at Home: Yes Childhood Exposure to Second-Hand Smoke: No Diet: regular caffeine: Yes Dental Care, Regularly: No Physical Activity Frequency: 1-2 Times per Week Seatbelt Use: always Sunscreen Use: No Assistive Devices: Glasses and Walker Allergies Allergies Allergy/AdvReac Type Severity Reaction Status Date / Time No Known Allergies Allergy Verified 02/27/24 08:56 Home Meds Home Medications Medication Instructions Recorded Confirmed lancets (Microlet Lancet) #50 ea 10/28/18 02/27/24 multivitamin (Multiple Vitamins 1 tab PO QAM 05/24/21 02/27/24 tablet) Previous Rx's Medication Instructions Recorded nitroglycerin 0.4 mg sublingual 0.4 mg sublingual Q5M PRN dyspnea 12/12/22 tablet (Nitrostat) #25 tabs BD Ultra-Fine Danielle Pen Needle 32 #300 ea 03/21/23 gauge x 5/32" (pen needle, diabetic) amlodipine 10 mg tablet 10 mg PO QAM #90 tabs 07/24/23 atorvastatin 40 mg tablet 40 mg PO QAM #90 tabs 09/24/23 potassium chloride 10 mEq 10 meq PO QAM #90 caps 12/05/23 capsule,extended release lisinopril 20 1 tab PO QAM #90 tabs 12/06/23 mg-hydrochlorothiazide 12.5 mg tablet Contour Next Test Strips (blood #300 ea 01/21/24 sugar diagnostic) clopidogrel 75 mg tablet 75 mg PO QAM #90 tabs 01/21/24 empagliflozin 10 mg tablet 10 mg PO QAM #90 tabs 01/21/24 insulin glargine 100 unit/mL (3 34 unit (0.34 mL) subcut QPM #15 mL 01/21/24 mL) subcutaneous pen (Basaglar KwikPen U-100 Insulin) isosorbide mononitrate 30 mg 30 mg PO QAM #90 tabs 01/21/24 tablet,extended release 24 hr insulin aspart See Rx Instructions subcut TID #20 02/11/24 (niacinamide)(U-100) 100 unit/mL(3 mL mL) subcutaneous pen (Fiasp FlexTouch U-100 Insulin) Results & Data (ED) Vital Signs Vital Signs - 24 hr 03/30/24 17:13 03/30/24 18:46 Temperature 37.1 C Temperature Source Oral Pulse Rate 91 H Pulse Rate [Right Finger] 89 Respiratory Rate 17 18 Respiratory Effort / Characteristics Non-Labored Spontaneous Respiratory Depth Normal Blood Pressure 126/70 Blood Pressure [Right Arm] 97/75 L Blood Pressure Mean 88 Blood Pressure Mean [Right Arm] 82 Pulse Oximetry 94 97 Oxygen Delivery Method Room Air Room Air Sepsis Recent Fever Within 48 Hours No Sepsis New/Unexplained Change in Mental Status N/A Sepsis Action Taken by Nursing No Action Required Laboratory Data 03/30/24 17:23 03/30/24 17:23 Lab Results 03/30/24 03/30/24 03/30/24 Range/Units 17:19 17:22 17:23 WBC 5.96 (4.8-10.8) K/ul RBC 5.50 (4.70-6.10) M/uL Hgb 16.2 (14.0-18.0) g/dl Hct 48.0 (42.0-52.0) % MCV 87.3 (80.0-100.0) fL MCH 29.5 (25.0-34.0) pg MCHC 33.8 (32.0-36.0) g/dL RDW Std Deviation 41.5 (36.4-46.3) fL RDW Coeff of Kirsten 13.0 (11.5-14.5) % Plt Count 104 L (130-400) K/uL MPV 10.1 (9.4-12.4) fL Immature Gran % (Auto) 0.8 % Neut % (Auto) 84.9 % Lymph % (Auto) 4.9 % [place] % (Auto) 8.7 % Eos % (Auto) 0.2 % Baso % (Auto) 0.5 % Neut # (Auto) 5.06 (1.40-6.50) K/uL Lymph # (Auto) 0.29 L (1.20-3.40) K/uL [place] # (Auto) 0.52 (0.11-0.59) K/uL Eos # (Auto) 0.01 (0.00-0.50) K/uL Baso # (Auto) 0.03 (0.00-0.20) K/uL Immature Gran # (Auto) 0.05 (0.01-0.20) K/uL Sodium 137 (136-145) mmol/L Potassium 3.9 (3.5-5.1) mmol/L Chloride 101 (98-107) mmol/L Carbon Dioxide 23 (21-32) mmol/L Anion Gap 13 H (3-11) BUN 18 (6-23) mg/dl Creatinine 1.35 (0.6-1.4) mg/dl Est Cr Clr Drug Dosing Not Reportable eGFR 51.13 BUN/Creatinine Ratio 13.3 (10-20) Glucose 176 H (70-99(Fasting)) mg/dl POC Glucose 175 H (70-99) mg/dl Calcium 10.5 H (8.6-10.3) mg/dl Magnesium 2.0 (1.7-2.4) mg/dl Total Bilirubin 4.0 H (0.2-1.0) mg/dl AST 18 (13-39) U/L ALT 14 (7-52) U/L Alkaline Phosphatase 63 (34-104) U/L Troponin I High Sens 17.6 (0-20) pg/ml Total Protein 7.2 (6.0-8.3) gm/dl Albumin 4.6 (3.4-5.0) gm/dl Globulin 2.6 (2.5-4.0) gm/dl Albumin/Globulin Ratio 1.8 (0.9-2) Urine Color Urine Appearance (Clear) Urine pH (4.5-7.5) Ur Specific [place] (1.000-1.030) Urine Protein (Negative) Urine Glucose (UA) (Negative) Urine Ketones (Negative) Urine Blood (Negative) Urine Nitrite (Negative) Urine Bilirubin (Negative) Urine Urobilinogen (Negative) Ur Leukocyte Esterase (Negative) Urine WBC (Auto) (0-5) /hpf Urine RBC (Auto) (0-2) /hpf U Hyaline Cast (Auto) (0-2) /lpf U Epithel Cells (Auto) (0-2) /hpf Urine Bacteria (Auto) (None Seen) SARS-CoV-2 (PCR) NEGATIVE (Negative) Influenza Type A (PCR) Positive A (Neg) Influenza Type B (PCR) Negative (Neg) RSV (RT-PCR) Negative (Neg) 03/30/24 Range/Units 18:45 WBC (4.8-10.8) K/ul RBC (4.70-6.10) M/uL Hgb (14.0-18.0) g/dl Hct (42.0-52.0) % MCV (80.0-100.0) fL MCH (25.0-34.0) pg MCHC (32.0-36.0) g/dL RDW Std Deviation (36.4-46.3) fL RDW Coeff of Kirsten (11.5-14.5) % Plt Count (130-400) K/uL MPV (9.4-12.4) fL Immature Gran % (Auto) % Neut % (Auto) % Lymph % (Auto) % [place] % (Auto) % Eos % (Auto) % Baso % (Auto) % Neut # (Auto) (1.40-6.50) K/uL Lymph # (Auto) (1.20-3.40) K/uL [place] # (Auto) (0.11-0.59) K/uL Eos # (Auto) (0.00-0.50) K/uL Baso # (Auto) (0.00-0.20) K/uL Immature Gran # (Auto) (0.01-0.20) K/uL Sodium (136-145) mmol/L Potassium (3.5-5.1) mmol/L Chloride (98-107) mmol/L Carbon Dioxide (21-32) mmol/L Anion Gap (3-11) BUN (6-23) mg/dl Creatinine (0.6-1.4) mg/dl Est Cr Clr Drug Dosing eGFR BUN/Creatinine Ratio (10-20) Glucose (70-99(Fasting)) mg/dl POC Glucose (70-99) mg/dl Calcium (8.6-10.3) mg/dl Magnesium (1.7-2.4) mg/dl Total Bilirubin (0.2-1.0) mg/dl AST (13-39) U/L ALT (7-52) U/L Alkaline Phosphatase (34-104) U/L Troponin I High Sens (0-20) pg/ml Total Protein (6.0-8.3) gm/dl Albumin (3.4-5.0) gm/dl Globulin (2.5-4.0) gm/dl Albumin/Globulin Ratio (0.9-2) Urine Color Yellow Urine Appearance Clear (Clear) Urine pH 5.5 (4.5-7.5) Ur Specific [place] 1.040 H (1.000-1.030) Urine Protein Trace H (Negative) Urine Glucose (UA) 2+ H (Negative) Urine Ketones 2+ H (Negative) Urine Blood Negative (Negative) Urine Nitrite Negative (Negative) Urine Bilirubin Negative (Negative) Urine Urobilinogen Negative (Negative) Ur Leukocyte Esterase Negative (Negative) Urine WBC (Auto) 0-5 (0-5) /hpf Urine RBC (Auto) 0-2 (0-2) /hpf U Hyaline Cast (Auto) 0-2 (0-2) /lpf U Epithel Cells (Auto) 0-2 (0-2) /hpf Urine Bacteria (Auto) None Seen (None Seen) SARS-CoV-2 (PCR) (Negative) Influenza Type A (PCR) (Neg) Influenza Type B (PCR) (Neg) RSV (RT-PCR) (Neg) Discharge Plan Visit Data Chief Complaint: Weakness Stated Complaint: HYPERGLYCEMIA,WEAK ED Provider: Tita Barrera Discharge Problem: Generalized weakness, Influenza A, Ambulatory dysfunction Forms Stand Alone Forms: My [facility] Prescriptions Prescriptions: No Action (DME) pen needle, diabetic [BD Ultra-Fine Danielle Pen Needle] 32 gauge x 5/32" needle See Dose Instructions .ROUTE .MEDSUPPLY Qty: 300 3RF Dose Instruction: As directed Rx Instructions: Inject insulin 3 times a day amlodipine 10 mg tablet 10 mg PO QAM Qty: 90 3RF Rx Instructions: TAKE 1 TABLET BY MOUTH DAILY atorvastatin 40 mg tablet 40 mg PO QAM Qty: 90 3RF potassium chloride 10 mEq capsule, extended release 10 meq PO QAM Qty: 90 1RF lisinopril-hydrochlorothiazide 20-12.5 mg tablet 1 tab PO QAM Qty: 90 3RF isosorbide mononitrate 30 mg tablet extended release 24 hr 30 mg PO QAM Qty: 90 3RF insulin glargine [Basaglar KwikPen U-100 Insulin] 100 unit/mL (3 mL) insulin pen 34 unit SQ QPM Qty: 15 1RF (DME) Contour Next Test Strips Strip See Dose Instructions .ROUTE .MEDSUPPLY Qty: 300 3RF Rx Instructions: Test blood sugars 3 times a day empagliflozin 10 mg tablet 10 mg PO QAM Qty: 90 1RF clopidogrel 75 mg tablet 75 mg PO QAM Qty: 90 3RF Fiasp FlexTouch U-100 Insulin 100 unit/mL (3 mL) insulin pen See Rx Instructions subcut TID Qty: 20 1RF Rx Instructions: 16 units with breakfast, 18 units with lunch, and 18 units with dinner subcutaneously three times a day; (DME) lancets [Microlet Lancet] misc See Dose Instructions .ROUTE .MEDSUPPLY Qty: 50 Rx Instructions: Test blood sugars 3 times a day multivitamin [Multiple Vitamins] Tablet 1 tab PO QAM nitroglycerin [Nitrostat] 0.4 mg tablet, sublingual 0.4 mg sublingual Q5M PRN (Reason: dyspnea) Qty: 25 5RF Rx Instructions: do not exceed 3 doses per episode Referrals Referrals: Javier Anguiano, [Primary Care Provider] -
[2024-03-30 19:08] LABS: Appearance Urine Clear (Clear); Bacteria Urine Automated None Seen (None Seen); Bilirubin Urine Negative (Negative); Blood Urine Negative (Negative); Cast Urine Automated 0-2 /lpf (0-2); Color Urine Yellow; Epithelial Cell Urine Auto 0-2 /hpf (0-2); Glucose Urine UA 2+ (Negative); Ketones Urine 2+ (Negative); Leukocyte Esterase Urine Negative (Negative); Nitrite Urine Negative (Negative); Protein Urine Trace (Negative); RBC Urine Automated 0-2 /hpf (0-2); Urobilinogen Urine Negative (Negative); WBC Urine Automated 0-5 /hpf (0-5); pH Urine 5.5 (4.5-7.5)
--- NOTE | 2024-03-30 20:36 | History & Physical Report ---
Date of Service March 30, 2024 Assessment & Plan (1) Influenza A: (2) Ambulatory dysfunction: (3) Generalized weakness: (4) Diabetes mellitus, type II: Plan The patient is a 88-year-old male with past medical history including hypertension, diabetes mellitus, hyperlipidemia, CAD, history of CABG, hyperbilirubinemia and ITP. He presents to the emergency department with symptoms of generalized fatigue, weakness, shortness of breath and dyspnea on exertion, with testing positive for influenza A. #Influenza A- Symptoms of generalized fatigue, shortness of breath, dyspnea on exertion, generalized weakness Start Tamiflu 75 mg p.o. twice daily, renal adjustment as needed Droplet precautions Of note, testing negative for COVID, influenza B, and RSV #Diabetes mellitus- Glucose 176 on admission Reduce glargine from 34 to 20 units subcu daily Hold standing orders for aspart Hold empagliflozin Placed on Accu-Cheks with NovoLog SSI Check hemoglobin A1c #Acute kidney injury superimposed on CKD- Creatinine 1.35, with base 1.11 Placed on NSS at 80 mL/h x 1 L Recheck laboratories in the a.m. Hold lisinopril/HCTZ and potassium chloride #CAD/hypertension- Hold amlodipine and lisinopril/HCTZ, potassium chloride Continue isosorbide mononitrate, clopidogrel #Hyperlipidemia- Continue atorvastatin Check a fasting lipid panel #Hyperbilirubinemia- Bilirubin 4.0 on admission Repeat laboratories in a.m. #ITP- Platelets 104 Base range 105-149 Follow serially #CODE STATUS: Full resuscitation History of Present Illness Chief Complaint: The patient presents to the emergency department with 24 hours of persistent and worsening shortness of breath, fatigue, generalized weakness after exposure to family members and a [place] gathering a few days ago. Primary Care Provider: Javier Anguiano DO The patient is a 88-year-old male with a past medical history including diabetic neuropathy, diabetes mellitus, occlusion of right vertebral artery, hypertension, CAD, history of CABG, hyperlipidemia, hyperbilirubinemia, diabetes mellitus type II, and ITP. He presents to the emergency department with his son, after his noted that the patient had the above symptoms of shortness of breath, dyspnea on exertion, generalized fatigue and worsening generalized weakness. Patient reportedly had a fall on the morning of 03/30, without any direct injuries. Testing in the emergency department included a negative COVID test, negative RSV test, but positive test for influenza A. Patient was then referred for evaluation for admission Allergies Allergy/AdvReac Type Severity Reaction Status Date / Time No Known Allergies Allergy Verified 03/30/24 20:18 Home Medications Medication Instructions Recorded Confirmed Type lancets (Microlet Lancet) #50 ea 10/28/18 02/27/24 History multivitamin (Multiple Vitamins 1 tab PO QAM 05/24/21 03/30/24 History tablet) nitroglycerin 0.4 mg sublingual 0.4 mg sublingual Q5M PRN dyspnea 12/12/22 03/30/24 Rx tablet (Nitrostat) #25 tabs BD Ultra-Fine Danielle Pen Needle 32 #300 ea 03/21/23 02/27/24 Rx gauge x 5/32" (pen needle, diabetic) amlodipine 10 mg tablet 10 mg PO QAM #90 tabs 07/24/23 03/30/24 Rx atorvastatin 40 mg tablet 40 mg PO QAM #90 tabs 09/24/23 03/30/24 Rx potassium chloride 10 mEq 10 meq PO QAM #90 caps 12/05/23 03/30/24 Rx capsule,extended release lisinopril 20 1 tab PO QAM #90 tabs 12/06/23 03/30/24 Rx mg-hydrochlorothiazide 12.5 mg tablet Contour Next Test Strips (blood #300 ea 01/21/24 02/27/24 Rx sugar diagnostic) clopidogrel 75 mg tablet 75 mg PO QAM #90 tabs 01/21/24 03/30/24 Rx empagliflozin 10 mg tablet 10 mg PO QAM #90 tabs 01/21/24 03/30/24 Rx insulin glargine 100 unit/mL (3 34 unit (0.34 mL) subcut QPM #15 mL 01/21/24 03/30/24 Rx mL) subcutaneous pen (Basaglar KwikPen U-100 Insulin) isosorbide mononitrate 30 mg 30 mg PO QAM #90 tabs 01/21/24 03/30/24 Rx tablet,extended release 24 hr insulin aspart See Rx Instructions subcut TID #20 02/11/24 03/30/24 Rx (niacinamide)(U-100) 100 unit/mL(3 mL mL) subcutaneous pen (Fiasp FlexTouch U-100 Insulin) Past Med/Surg History Problem List (Updated 03/30/24 @ 20:41 by Danish Lucas MD) Status post fall Ambulatory dysfunction (Acute) Influenza A (Acute) Generalized weakness (Acute) Caregiver burden Memory change Stroke-like symptoms Diabetic neuropathy associated with secondary diabetes mellitus Occlusion of right vertebral artery (Acute) CTS (carpal tunnel syndrome) Exertional dyspnea Hypertension Coronary artery disease . Followed by cardiology. Hx of CABG OPEN HEART SURGERY, BLOCKAGES 2006 AT [facility] Hyperlipidemia Hyperbilirubinemia (Acute) Diabetes mellitus, type II (Chronic) Immune thrombocytopenic purpura Medical History Acute kidney injury superimposed on CKD Right hand paresthesia Cataracts, bilateral History of COVID-19 Snores CAHTO (hard of hearing) Low back pain Thyroglossal duct cyst Seborrheic keratosis Chronic sinusitis Anemia Dysphagia Calcaneal spur Basal cell carcinoma Diabetic nephropathy Chronic kidney disease Surgical History History of squamous cell carcinoma excision History of left cataract surgery History of thyroid surgery History of carpal tunnel release H/O colonoscopy Hx of total knee arthroplasty Family History Father Prostate cancer Alcohol abuse Mother Hypertension Stroke Brother Atrial fibrillation Heart disease Grandmother Diabetes Stroke Uncle Diabetes Denies family history of Ovarian cancer Myocardial infarction Breast cancer Lung cancer Colorectal cancer Social History Smoking Status: Never smoker Age Started Using Tobacco: 16; Age Quit Using Tobacco: 30; Cigarettes Per Day: .025; Second Hand Exposure: No; Do You Dip or Chew Tobacco: No; Hx Alcohol Use: No Hx Substance Use: No Preferred Language: Irish Communication Ability: Effective Communication Ability Comment: CAHTO Visual Impairment: Limited Hearing Ability: Use of Hearing Aid Medical Leader Required: No marital status: Current Living Situation: Spouse current occupational status: retired 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 How many Children do You have: 3 Feels Safe at Home: Yes Childhood Exposure to Second-Hand Smoke: No Diet: regular caffeine: Yes Dental Care, Regularly: No Physical Activity Frequency: 1-2 Times per Week Seatbelt Use: always Sunscreen Use: No Assistive Devices: Glasses and Walker Review of Systems Review of Systems: The patient denies chest pain, palpitations, cough, lower extremity swelling, sore throat, fevers, chills, sweats, nausea, vomiting, diarrhea , constipation, abdominal pain, pelvic pain, blood in urine or stool, dysuria, urinary frequency or urgency, loss of consciousness, rash, abnormal bruising or bleeding, focal weakness, numbness or tingling in arms or legs, generalized arthralgias or myalgias, back or neck pain, or night sweats. The review of systems is otherwise negative other than for that already noted above, and at least 10 systems have been reviewed. Physical Exam Physical Exam: The patient is awake, alert and oriented 3, well developed and well nourished, normocephalic and atraumatic, lying in bed and in no acute distress. HEENT--PERRL, EOMI, mucous membranes and oropharynx mildly dry. Neck--supple. No JVD. No bruits. Thyroid normal, trachea midline, no adenopathy. Heart--normal S1 and S2. No murmurs, rubs or gallops. Lungs--clear bilaterally, no respiratory distress, no accessory muscle use. Abdomen--normal bowel sounds and soft. Nontender. Nondistended, no hernias or masses, no organomegaly. Extremities--no cyanosis or clubbing. No edema. Dermatologic--normal skin turgor, normal color, no abnormal lymph nodes, no rash. Neurologic--cranial nerves II through XII grossly intact. Rheumatologic--normal range of motion. Psychiatric--normal affect. Results & Data Results & Data Vital Signs (Past 12 Hours) Vital Signs Temp Pulse Pulse Resp BP BP Pulse Ox 03/30/24 20:00 90 18 125/95 94 03/30/24 18:46 89 18 97/75 L 97 03/30/24 17:13 37.1 C 91 H 17 126/70 94 O2 Del Method 03/30/24 20:00 Room Air 03/30/24 18:46 Room Air 03/30/24 17:13 Room Air Laboratory Results Laboratory Results WBC 5.96 K/ul (4.8-10.8) 03/30/24 17:23 RBC 5.50 M/uL (4.70-6.10) 03/30/24 17:23 Hgb 16.2 g/dl (14.0-18.0) 03/30/24 17: Hct 48.0 % (42.0-52.0) 03/30/24 17:23 MCV 87.3 fL (80.0-100.0) 03/30/24 17:23 MCH 29.5 pg (25.0-34.0) 03/30/24 17:23 MCHC 33.8 g/dL (32.0-36.0) 03/30/24 17:23 RDW Std Deviation 41.5 fL (36.4-46.3) 03/30/24 17: RDW Coeff of Kirsten 13.0 % (11.5-14.5) 03/30/24 17: Plt Count 104 K/uL (130-400) L 03/30/24 17:23 MPV 10.1 fL (9.4-12.4) 03/30/24 17:23 Immature Gran % (Auto) 0.8 % 03/30/24 17:23 Neut % (Auto) 84.9 % 03/30/24 17:23 Lymph % (Auto) 4.9 % 03/30/24 17:23 Dougherty % (Auto) 8.7 % 03/30/24 17:23 Eos % (Auto) 0.2 % 03/30/24 17:23 Baso % (Auto) 0.5 % 03/30/24 17:23 Neut # (Auto) 5.06 K/uL (1.40-6.50) 03/30/24 17:23 Lymph # (Auto) 0.29 K/uL (1.20-3.40) L 03/30/24 17:23 Dougherty # (Auto) 0.52 K/uL (0.11-0.59) 03/30/24 17:23 Eos # (Auto) 0.01 K/uL (0.00-0.50) 03/30/24 17: Baso # (Auto) 0.03 K/uL (0.00-0.20) 03/30/24 17:23 Immature Gran # (Auto) 0.05 K/uL (0.01-0.20) 03/30/24 17:23 Sodium 137 mmol/L (136-145) 03/30/24 17:23 Potassium 3.9 mmol/L (3.5-5.1) 03/30/24 17:23 Chloride 101 mmol/L (98-107) 03/30/24 17:23 Carbon Dioxide 23 mmol/L (21-32) 03/30/24 17:23 Anion Gap 13 (3-11) H 03/30/24 17:23 BUN 18 mg/dl (6-23) 03/30/24 17:23 Creatinine 1.35 mg/dl (0.6-1.4) 03/30/24 17:23 Est Cr Clr Drug Dosing Not Reportable 03/30/24 17:23 eGFR 51.13 03/30/24 17:23 BUN/Creatinine Ratio 13.3 (10-20) 03/30/24 17:23 Glucose 176 mg/dl (70-99(Fasting)) H 03/30/24 17:23 POC Glucose 175 mg/dl (70-99) H 03/30/24 17:19 Calcium 10.5 mg/dl (8.6-10.3) H 03/30/24 17:23 Magnesium 2.0 mg/dl (1.7-2.4) 03/30/24 17:23 Total Bilirubin 4.0 mg/dl (0.2-1.0) H 03/30/24 17:23 AST 18 U/L (13-39) 03/30/24 17:23 ALT 14 U/L (7-52) 03/30/24 17:23 Alkaline Phosphatase 63 U/L (34-104) 03/30/24 17:23 Troponin I High Sens 17.6 pg/ml (0-20) 03/30/24 17:23 Total Protein 7.2 gm/dl (6.0-8.3) 03/30/24 17:23 Albumin 4.6 gm/dl (3.4-5.0) 03/30/24 17:23 Globulin 2.6 gm/dl (2.5-4.0) 03/30/24 17:23 Albumin/Globulin Ratio 1.8 (0.9-2) 03/30/24 17:23 Urine Color Yellow 03/30/24 18:45 Urine Appearance Clear (Clear) 03/30/24 18:45 Urine pH 5.5 (4.5-7.5) 03/30/24 18:45 Ur Specific Sherburn 1.040 (1.000-1.030) H 03/30/24 18:45 Urine Protein Trace (Negative) H 03/30/24 18:45 Urine Glucose (UA) 2+ (Negative) H 03/30/24 18:45 Urine Ketones 2+ (Negative) H 03/30/24 18:45 Urine Blood Negative (Negative) 03/30/24 18:45 Urine Nitrite Negative (Negative) 03/30/24 18:45 Urine Bilirubin Negative (Negative) 03/30/24 18:45 Urine Urobilinogen Negative (Negative) 03/30/24 18:45 Ur Leukocyte Esterase Negative (Negative) 03/30/24 18:45 Urine WBC (Auto) 0-5 /hpf (0-5) 03/30/24 18:45 Urine RBC (Auto) 0-2 /hpf (0-2) 03/30/24 18:45 U Hyaline Cast (Auto) 0-2 /lpf (0-2) 03/30/24 18:45 U Epithel Cells (Auto) 0-2 /hpf (0-2) 03/30/24 18:45 Urine Bacteria (Auto) None Seen (None Seen) 03/30/24 18:45 SARS-CoV-2 (PCR) NEGATIVE (Negative) 03/30/24 17:22 Influenza Type A (PCR) Positive (Neg) A 03/30/24 17:22 Influenza Type B (PCR) Negative (Neg) 03/30/24 17:22 RSV (RT-PCR) Negative (Neg) 03/30/24 17:22 Code Status & VTE Plan Code Status Full code VTE Prophylaxis Plan VTE Prophylaxis will be ordered: Yes PG Care Time/CCT Total # of Minutes Spent Total Time Spent with Patient: Total time spent is greater than 50% in coordination of care (as documented) at patient's floor/unit and/or counseling patient: Coding Level of Care Code 31681 INT INP/OBS CARE 3/75MIN Diagnoses Influenza A J10.1 Ambulatory dysfunction R26.2 Generalized weakness R53.1 Diabetes mellitus, type II E11.9
--- NOTE | 2024-03-30 21:34 | XRay Report ---
Exam(s): XR CXR 1 VIEW EXAM: XR Chest, 1 View CLINICAL HISTORY: Reason for exam: shortness of breath; flu. TECHNIQUE: Frontal view of the chest. COMPARISON: No relevant prior studies available. FINDINGS: Lungs: Linear atelectasis left lower lobe. Pleural space: Unremarkable. No pneumothorax. Heart: Unremarkable. No cardiomegaly. Mediastinum: Unremarkable. Normal mediastinal contour. Bones/joints: Postoperative changes median sternotomy. No acute fracture. IMPRESSION: No acute findings in the chest. Electronically signed by: Mehdi Morales MD 03/30/24 21:33 PM
[2024-03-30] MEDS: SODIUM CHLORIDE 0.9% 1,000 ML IV SCH (21:39)
[2024-03-30] MEDS: Patient's HEIGHT &/or WEIGHT Needed STA (21:39)
[2024-03-30] MEDS: OSELTAMIVIR PHOSPHATE 75 MG CAP PO ONE (22:26)
[2024-03-30] MEDS ORDERED: ACETAMINOPHEN 325 MG TAB PO PRN (22:43)
[2024-03-30] MEDS ORDERED: ONDANSETRON INJ 2 MG/ML 2 ML VIAL IV PRN (22:43)
[2024-03-31] MEDS: HEPARIN SOD 5,000 UNIT/0.5 ML VIAL SQ SCH (00:29)
[2024-03-31] MEDS: LANTUS PER UNIT CHARGE SC SCH ×2 (00:29→20:29)
[2024-03-31 05:22] LABS: Albumin Level 3.9 gm/dl (3.4-5.0); BUN Creatinine Ratio 18.3 (10-20); Calcium 9.7 mg/dl (8.6-10.3); Magnesium 1.9 mg/dl (1.7-2.4); Phosphorus 2.1 mg/dl (2.5-4.9); Potassium 3.6 mmol/L (3.5-5.1)
[2024-03-31 05:26] LABS: Hematocrit (blood only) 42.5 % (42.0-52.0); Hemoglobin 14.7 g/dl (14.0-18.0); Mean Corpuscular Hemoglobin 30.1 pg (25.0-34.0); Mean Corpuscular Hgb Conc 34.6 g/dL (32.0-36.0); Mean Corpuscular Volume 86.9 fL (80.0-100.0); RDW Coefficient of Variation 13.2 % (11.5-14.5); RDW Standard Deviation 41.2 fL (36.4-46.3); Red Blood Count 4.89 M/uL (4.70-6.10); White Blood Count 4.39 K/ul (4.8-10.8)
[2024-03-31 05:38] LABS: Basophils # (auto) 0.03 K/uL (0.00-0.20); Basophils % (auto) 0.7 %; Eosinophils # (auto) 0.01 K/uL (0.00-0.50); Eosinophils % (auto) 0.2 %; Immature Granulocytes # (auto) 0.03 K/uL (0.01-0.20); Immature Granulocytes % (auto) 0.7 %; Lymphocytes # (auto) 0.69 K/uL (1.20-3.40); Lymphocytes % (auto) 15.7 %; Mean Platelet Volume 10.4 fL (9.4-12.4); Monocytes # (auto) 0.74 K/uL (0.11-0.59); Monocytes % (auto) 16.9 %; Neutrophils # (auto) 2.89 K/uL (1.40-6.50); Neutrophils % (auto) 65.8 %; Platelet Count 88 K/uL (130-400); Platelet Estimate Decreased (Normal)
[2024-03-31] MEDS: ISOSORBIDE MONO EXTENDED REL 30 MG TABCR PO SCH (09:16)
[2024-03-31] MEDS: CLOPIDOGREL BISULFATE 75 MG TAB PO SCH (09:16)
[2024-03-31] MEDS: ATORVASTATIN 40 MG TAB PO SCH (09:17)
[2024-03-31] MEDS: OSELTAMIVIR PHOSPHATE SUSP 30 MG/5 ML UDP PO SCH (09:18)
--- NOTE | 2024-03-31 09:21 | Electrocardiogram Report ---
Test Reason : Blood Pressure : */* mmHG Vent. Rate : 85 BPM Atrial Rate : 85 BPM P-R Int : 166 ms QRS Dur : 126 ms QT Int : 388 ms P-R-T Axes : 42 -36 78 degrees QTcB Int : 461 ms Normal sinus rhythm Left axis deviation Non-specific intra-ventricular conduction block Minimal voltage criteria for LVH, may be normal variant ( Ezra product ) Cannot rule out Anteroseptal infarct , age undetermined Abnormal ECG When compared with ECG of 19-Feb-2023 14:29, No significant change was found Confirmed by Pam Agarwal ([id number]) on 03/31/2024 9:21:30 AM Referred By: REFERRED SELF Confirmed By: Pam Agarwal
[2024-03-31] MEDS ORDERED: PHARMACY GLYCEMIC MGMT CONSULT PRN (10:16)
[2024-03-31 10:53] LABS: Bilirubin Direct 0.5 mg/dl (0-0.2); Bilirubin,Total 3.3 mg/dl (0.2-1.0)
[2024-03-31 10:59] LABS: Total Protein 6.1 gm/dl (6.0-8.3)
[2024-03-31] MEDS ORDERED: DEXTROSE 50% 50 ML SYRINGE IV PRN (11:00)
[2024-03-31] MEDS ORDERED: GLUCOSE 10 TAB/TUBE PO PRN (11:00)
[2024-03-31] MEDS ORDERED: GLUCAGON FOR INJ 1 MG VIAL SQ PRN (11:00)
[2024-03-31] MEDS ORDERED: CARBOHYDRATES FOR HYPOGLYCEMIA PO PRN (11:00)
[2024-03-31] MEDS ORDERED: GLUCOSE 40% GEL 15 GM TUBE PO PRN (11:00)
--- NOTE | 2024-03-31 11:05 | Pharmacy Report ---
Pharmacy Glycemic Short Note 2 - Date of Service March 31, 2024 - Glycemic Short BSG Results (Last 24 hours): 03/30/24 03/30/24 03/31/24 17:19 17:23 04:50 Glucose 176 H 197 H POC Glucose 175 H OUTPATIENT ANTIDIABETIC REGIMEN: * Jardiance 10 mg PO AM * Lantus 34 units SC PM * Fiasp SC TIDM (16 units w/ breakfast, 18 units w/ lunch and dinner) HbA1c: * pending (previous 8.3% in December 2023) ASSESSMENT: * 88 yo M admitted on 03/30/24 secondary to influenza A. Pharmacy has been consulted to assist with inpatient glycemic management. Patient is a Type 2 diabetic as an outpatient. Please refer to outpatient regimen and most recent HbA1c above. * BSG upon admission was 175 mg/dL. Ordered 20 units of Lantus last evening. No bolus insulin was ever ordered. * Serum BSG was 197 mg/dL this AM, no POCs ordered because no Novolog ordered. Will increase basal tonight to closer to home dosing. Adding bolus insulin based on weight/stress of 2-3. Adding hypoglycemia protocol. Will order A1c for tomorrow morning. * Ordered a T2DM diet now, will follow to see if tolerating. Only stressor is influenza infection being treated with Tamiflu. PLAN FOR INPATIENT GLYCEMIC CONTROL: * Hold outpatient oral diabetes medications * Basal insulin * Lantus 30 units SC HS * Bolus insulin * NovoLog per scale ACHS or Q6hrs while NPO * Goal Range: Low 110 mg/dL - High 140 mg/dL * Correction Factor: 20 mg/dL/unit * Nutritional / Prandial insulin per carb ratio of 1 unit per 6 grams CHO consumed
[2024-03-31] MEDS: INSULIN ASPART PER UNIT CHARGE SC SCH (14:10)
--- NOTE | 2024-03-31 16:26 | Hospitalist Progress Note ---
Date of Service March 31, 2024 Assessment & Plan (1) Influenza A: (2) Ambulatory dysfunction: (3) Generalized weakness: (4) Diabetes mellitus, type II: Plan The patient is a 88-year-old male with past medical history including hypertension, diabetes mellitus, hyperlipidemia, CAD, history of CABG, hyperbilirubinemia and ITP. He presents to the emergency department with symptoms of generalized fatigue, weakness, shortness of breath and dyspnea on exertion, with testing positive for influenza A. Patient feels his symptoms are improving. #Influenza A- Tamiflu 75 mg p.o. twice daily, renal adjustment as needed Droplet precautions CBC without leukocytosis CMP w/ stable renal function and electrolytes #Diabetes mellitus- Glucose 176 on admission Pharmcy consulted for glycemic management Lantus 30 units HC (outpatient dose: 34 units) Novolog SSI Hold empagliflozin Check hemoglobin A1c in AM #Acute kidney injury superimposed on CKD- resolved Creatinine 1.35, with base 1.11 Placed on NSS at 80 mL/h x 1 L Creatinine 03/31: 1.15 Hold lisinopril/HCTZ and potassium chloride, patient currently normotensive. 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 Admission and Anticipated Discharge Date Admission Date: March 30, 2024 Subjective Patient seen and examined this afternoon. patient reports improvement in his symptoms. he feels his weakness has improved. He was sitting on his chair eating lunch at time of my encounter. He denied any chest pain, SOB, fevers, chills. Physical Exam Constitutional: WD/WN, vitals as above Eyes: PERRL, conjunctivae normal, anicteric sclerae Respiratory: normal respiratory effort, lungs clear to auscultation Cardiovascular: RRR, no murmur, no edema Psychiatric: A+Ox3, euthymic affect Results & Data Results & Data Vital Signs (Past 12 Hours) Vital Signs Temp Pulse Pulse Resp BP Pulse Ox O2 Del Method 03/31/24 16:14 36.9 C 75 24 116/62 95 Room Air 03/31/24 14:15 81 18 110/71 94 Room Air 03/31/24 10:52 84 16 112/73 91 Nasal Cannula 03/31/24 07:52 79 18 125/70 92 Nasal Cannula 03/31/24 07:51 88 L Room Air 03/31/24 07:05 80 03/31/24 04:39 86 20 150/93 H 94 Room Air O2 Flow Rate 03/31/24 16:14 03/31/24 14:15 03/31/24 10:52 2 03/31/24 07:52 2 03/31/24 07:51 03/31/24 07:05 03/31/24 04:39 PG Care Time/CCT Total # of Minutes Spent Total Time Spent with Patient: Total time spent is greater than 50% in coordination of care (as documented) at patient's floor/unit and/or counseling patient: Coding Level of Care Code 46862 SUB INP/OBS CARE 2/35MIN Diagnoses Influenza A J10.1 Ambulatory dysfunction R26.2 Generalized weakness R53.1 Diabetes mellitus, type II E11.9
[2024-04-01 05:01] LABS: Basophils # (auto) 0.02 K/uL (0.00-0.20); Basophils % (auto) 0.7 %; Eosinophils # (auto) 0.03 K/uL (0.00-0.50); Hematocrit (blood only) 41.6 % (42.0-52.0); Hemoglobin 13.8 g/dl (14.0-18.0); Immature Granulocytes # (auto) 0.02 K/uL (0.01-0.20); Immature Granulocytes % (auto) 0.7 %; Lymphocytes # (auto) 0.53 K/uL (1.20-3.40); Lymphocytes % (auto) 17.8 %; Mean Corpuscular Hemoglobin 29.5 pg (25.0-34.0); Mean Corpuscular Hgb Conc 33.2 g/dL (32.0-36.0); Mean Corpuscular Volume 88.9 fL (80.0-100.0); Mean Platelet Volume 10.5 fL (9.4-12.4); Monocytes # (auto) 0.59 K/uL (0.11-0.59); Monocytes % (auto) 19.8 %; Neutrophils # (auto) 1.79 K/uL (1.40-6.50); Platelet Count 84 K/uL (130-400); RDW Coefficient of Variation 13.2 % (11.5-14.5); RDW Standard Deviation 43.3 fL (36.4-46.3); Red Blood Count 4.68 M/uL (4.70-6.10); White Blood Count 2.98 K/ul (4.8-10.8)
[2024-04-01 05:17] LABS: Albumin Level 3.6 gm/dl (3.4-5.0); BUN Creatinine Ratio 23.8 (10-20); Calcium 9.3 mg/dl (8.6-10.3); Creatinine Clr Calc Pharmacy 54.8 ml/min; Phosphorus 2.5 mg/dl (2.5-4.9); Potassium 3.6 mmol/L (3.5-5.1)
[2024-04-01 07:28] LABS: Estimated Average Glucose 212 mg/dl
[2024-04-01 11:25] VITALS: TEMP 98.1; O2SAT 97
[2024-04-01] MEDS: amLODIPine BESYLATE 5 MG TAB PO SCH (11:32)
--- NOTE | 2024-04-01 11:44 | Pharmacy Report ---
Pharmacy Glycemic Short Note 2 - Date of Service April 01, 2024 - Glycemic Short BSG Results (Last 24 hours): 03/31/24 03/31/24 03/31/24 13:21 16:01 20:08 Glucose POC Glucose 169 H 190 H 145 H 04/01/24 04/01/24 04/01/24 04:39 09:31 11:17 Glucose 119 H POC Glucose 184 H 214 H OUTPATIENT ANTIDIABETIC REGIMEN: * Jardiance 10 mg PO AM * Lantus 34 units SC PM * Fiasp SC TIDM (16 units w/ breakfast, 18 units w/ lunch and dinner) HbA1c: * 9% (04/01/24) ASSESSMENT: 04/01: * Galdino received 53 units of insulin yesterday, 30 basal + 23 bolus. BSGs were: [phone] mg/dL. * Fasting BSG today was 184 mg/dL. Unsure if BSG was taken after patient started eating but hesitant to increase basal any further today given 50% increase in dose yesterday. * Lunchtime BSG was up to 214 mg/dL but this may be falsely elevated as it was drawn less than 2 hours from previous bolus insulin administration. Will not make any adjustments to Novolog at this time. * Tolerating T2DM diet and continues on Tamiflu. 03/31: * 88 yo M admitted on 03/30/24 secondary to influenza A. Pharmacy has been consulted to assist with inpatient glycemic management. Patient is a Type 2 diabetic as an outpatient. Please refer to outpatient regimen and most recent HbA1c above. * BSG upon admission was 175 mg/dL. Ordered 20 units of Lantus last evening. No bolus insulin was ever ordered. * Serum BSG was 197 mg/dL this AM, no POCs ordered because no Novolog ordered. Will increase basal tonight to closer to home dosing. Adding bolus insulin based on weight/stress of 2-3. Adding hypoglycemia protocol. Will order A1c for tomorrow morning. * Ordered a T2DM diet now, will follow to see if tolerating. Only stressor is influenza infection being treated with Tamiflu. PLAN FOR INPATIENT GLYCEMIC CONTROL: * Hold outpatient oral diabetes medications * Basal insulin * Lantus 30 units SC HS * Bolus insulin * NovoLog per scale ACHS or Q6hrs while NPO * Goal Range: Low 110 mg/dL - High 140 mg/dL * Correction Factor: 20 mg/dL/unit * Nutritional / Prandial insulin per carb ratio of 1 unit per 6 grams CHO consumed
--- NOTE | 2024-04-01 12:20 | Discharge Summary ---
Discharge Summary Date of Service April 01, 2024 Principal Dx & Hospital Course #1 = Principal Diagnosis (1) Influenza A: (2) Ambulatory dysfunction: (3) Generalized weakness: (4) Diabetes mellitus, type II: Plan The patient is a 88-year-old male with past medical history including hypertension, diabetes mellitus, hyperlipidemia, CAD, history of CABG, hyperbilirubinemia and ITP. He presents to the emergency department with symptoms of generalized fatigue, weakness, shortness of breath and dyspnea on exertion, with testing positive for influenza A. #Influenza A- Tamiflu 75 mg p.o. renal adjustment - 30mg BID Symptomatically improving - stable on room air. Respiratory 2 step prior to discharge, did NOT need O2 with ambulation. #Diabetes mellitus- Pharmacy consulted for glycemic management A1c 9.0 - encouraged pt to check BSG more frequently at home for more data to alter home regimen #Acute kidney injury superimposed on CKD- resolved Hold lisinopril/HCTZ and potassium chloride x 3 days, can resume as continues to improve. 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 He presents to the emergency department with his son, after his noted that the patient had the above symptoms of shortness of breath, dyspnea on exertion, generalized fatigue and worsening generalized weakness. Patient reportedly had a fall on the morning of 03/30, without any direct injuries. Testing in the emergency department included a negative COVID test, negative RSV test, but positive test for influenza A. Patient was then referred for evaluation for admission Discharge Exam General: NAD, VS as above Resp: normal respiratory effort, lungs clear to auscultation - no wheezing CV: RRR, no murmur, Abd: normal bowel sounds, non tender, no hepatosplenomegaly Extremities: Moves all extremities, no edema Neuro: A&O x3, Skin: intact, no lesions noted Discharge Plan Discharge Items Patient Disposition: Home - Self-Care Reason For Visit: INFLUENZA A Discharge Diagnosis: Influenza A Activity: Resume your previous activity Exercise/Sports: Gradually increase as tolerated Weightbearing: Full weightbearing Non-emergency contact: Primary Care Provider Call non-emergency contact if: you have any medication questions and your symptoms worsen Follow-up/Referrals: Javier Anguiano DO [Primary Care Provider] - 04/08/24 11:30 am (Hospital follow up on April 08 at 11:30 am.) Diet: Carb Consistent or DM2 and Heart Healthy Addtl Attending Provider Instructions: Mr. Ruth, You were hospitalized after having shortness of breath and weakness, this was found to be from Influenza A. You were treated with tamiflu, and have been improving and no longer needing supplemental oxygen. You will be discharged with 7 more doses of Tamiflu, take the first dose tonight 04/01. Your HgbA1c was 9.0. This is the average of your blood sugars over the last 90 days. Per your PCP, your goal is 7-8. You need better control of your diabetes. Please start taking your Blood sugar before meals, and keep record of this data to bring back to your PCP so they can help adjust things. Be mindful of your carb intake. Please hold your lisinopril/Hydrochlorothiazide for 3 days, while you continue to improve. A viral infection can take 1-2 weeks to completely clear. You can increase activity as your body allows, but it may take some time to get your energy back. Be cautious around others, especially young children/babies - consider wearing a mask. Activity: You can do normal everyday activities as your body allows. Take rest breaks if you feel tired. Do not overexert. Stop activity if you have pain, shortness of breath or feel dizzy. Follow-up appointments: Make an appointment with your primary care physician within one week of discharge. A copy of this summary will be sent to them. Every time you see your primary care physician, or any other doctor, bring your medication list, and a list of questions. CONTACT YOUR PRIMARY CARE PROVIDER if you experience any of the following: Shortness of breath or difficulty breathing Fevers or chills Feeling tired with normal activity or experiencing dizziness or fainting Difficulty following your treatment plan, or difficulty taking medications CALL 911 OR GO TO THE EMERGENCY DEPARTMENT if you experience any of the following: Severe abdominal pain or nausea/vomiting Severe chest pain, or chest pain that radiates (moves) to your jaw or arm Sudden, severe shortness of breath or difficulty breathing Thank you for allowing us to participate in your care. Manuela Gipson PA-C Pending Studies at Discharge: No Stand-Alone Forms: My [facility] Ecelles Carson, Smoking Cessation Medications and DC Order Prescriptions: New oseltamivir [Tamiflu] 6 mg/mL Suspension For Reconstitution 30 mg PO BID 4 Days Qty: 40 0RF Continued (DME) pen needle, diabetic [BD Ultra-Fine Danielle Pen Needle] 32 gauge x 5/32" needle See Dose Instructions .ROUTE .MEDSUPPLY Qty: 300 3RF Dose Instruction: As directed Rx Instructions: Inject insulin 3 times a day amlodipine 10 mg tablet 10 mg PO QAM Qty: 90 3RF Rx Instructions: TAKE 1 TABLET BY MOUTH DAILY atorvastatin 40 mg tablet 40 mg PO QAM Qty: 90 3RF isosorbide mononitrate 30 mg tablet extended release 24 hr 30 mg PO QAM Qty: 90 3RF insulin glargine [Basaglar KwikPen U-100 Insulin] 100 unit/mL (3 mL) insulin pen 34 unit SQ QPM Qty: 15 1RF (DME) Contour Next Test Strips Strip See Dose Instructions .ROUTE .MEDSUPPLY Qty: 300 3RF Rx Instructions: Test blood sugars 3 times a day empagliflozin 10 mg tablet 10 mg PO QAM Qty: 90 1RF clopidogrel 75 mg tablet 75 mg PO QAM Qty: 90 3RF Fiasp FlexTouch U-100 Insulin 100 unit/mL (3 mL) insulin pen See Rx Instructions subcut TID Qty: 20 1RF Rx Instructions: 16 units with breakfast, 18 units with lunch, and 18 units with dinner subcutaneously three times a day; (DME) lancets [Microlet Lancet] misc See Dose Instructions .ROUTE .MEDSUPPLY Qty: 50 Rx Instructions: Test blood sugars 3 times a day multivitamin [Multiple Vitamins] Tablet 1 tab PO QAM nitroglycerin [Nitrostat] 0.4 mg tablet, sublingual 0.4 mg sublingual Q5M PRN (Reason: dyspnea) Qty: 25 5RF Rx Instructions: do not exceed 3 doses per episode Held potassium chloride 10 mEq capsule, extended release 10 meq PO QAM Qty: 90 1RF Hold Instructions: Resume on 04/04/24. lisinopril-hydrochlorothiazide 20-12.5 mg tablet 1 tab PO QAM Qty: 90 3RF Hold Instructions: Resume on 04/04/24. Discharge Orders: Discharge Order (Routine); Ordered 04/01/24 Ordered By: Manuela Ching/Other Patient Handouts: The Flu (Influenza) Admission Data Admit Date/Time: 03/30/24 20:36 Attending Provider: Dexter Ron Admit Provider: Danish Lucas Primary Care Provider: Javier Anguiano Other Providers: Danish Lucas Other Interventions: Discharge Summary Assessment (RN) Last Done: 04/01/24 12:33 Hospital Stay Data Consultations 03/30/24 19:35 ED Decision to Admit Stat Diagnostic Imagining Performed Chest X-Ray 03/30/24 18:32 Exam(s): XR CXR 1 VIEW EXAM: XR Chest, 1 View CLINICAL HISTORY: Reason for exam: shortness of breath; flu. TECHNIQUE: Frontal view of the chest. COMPARISON: No relevant prior studies available. FINDINGS: Lungs: Linear atelectasis left lower lobe. Pleural space: Unremarkable. No pneumothorax. Heart: Unremarkable. No cardiomegaly. Mediastinum: Unremarkable. Normal mediastinal contour. Bones/joints: Postoperative changes median sternotomy. No acute fracture. IMPRESSION: No acute findings in the chest. Electronically signed by: Mehdi Morales MD 03/30/24 21:33 PM Pending Results Patient Have Any Pending Studies at Discharge: No Discharge Instructions Given to Patient (Per Discharging Provider) Mr. Ruth, You were hospitalized after having shortness of breath and weakness, this was found to be from Influenza A. You were treated with tamiflu, and have been improving and no longer needing supplemental oxygen. You will be discharged with 7 more doses of Tamiflu, take the first dose tonight 04/01. Your HgbA1c was 9.0. This is the average of your blood sugars over the last 90 days. Per your PCP, your goal is 7-8. You need better control of your diabetes. Please start taking your Blood sugar before meals, and keep record of this data to bring back to your PCP so they can help adjust things. Be mindful of your carb intake. Please hold your lisinopril/Hydrochlorothiazide for 3 days, while you continue to improve. A viral infection can take 1-2 weeks to completely clear. You can increase activity as your body allows, but it may take some time to get your energy back. Be cautious around others, especially young children/babies - consider wearing a mask. Activity: You can do normal everyday activities as your body allows. Take rest breaks if you feel tired. Do not overexert. Stop activity if you have pain, shortness of breath or feel dizzy. Follow-up appointments: Make an appointment with your primary care physician within one week of discharge. A copy of this summary will be sent to them. Every time you see your primary care physician, or any other doctor, bring your medication list, and a list of questions. CONTACT YOUR PRIMARY CARE PROVIDER if you experience any of the following: Shortness of breath or difficulty breathing Fevers or chills Feeling tired with normal activity or experiencing dizziness or fainting Difficulty following your treatment plan, or difficulty taking medications CALL 911 OR GO TO THE EMERGENCY DEPARTMENT if you experience any of the following: Severe abdominal pain or nausea/vomiting Severe chest pain, or chest pain that radiates (moves) to your jaw or arm Sudden, severe shortness of breath or difficulty breathing Thank you for allowing us to participate in your care. Manuela Gipson PA-C Total Time Total Time Spent Total Time Spent (In Minutes): Time spent day of discharge 36 minutes including direct patient care, medication reconciliation, documentation, review of labs and images, and coordination of care. Coding Level of Care Code 58919 INP/OBS DISCH >30 MIN Diagnoses Influenza A J10.1 Ambulatory dysfunction R26.2 Generalized weakness R53.1 Diabetes mellitus, type II E11.9
[2024-04-01 12:53] VITALS: BP 138/82; PULSE 74; RESP 18
== END 2024-04-01 13:58 | disposition home or self-care (01) | DRG 194 ==
LOC: ED 16:36 → SUATTDRO 20:36 → EDINP 20:36 → 1E 22:43